=== PATIENT | male | born 2000 | race Caucasian/White ===

== ENCOUNTER 2019-04-29 19:17 | Inpatient (IN) | payer OTHER ==
--- NOTE | 2019-04-29 19:36 | PDOC ---
Rapid Medical Evaluation Chief Complaint: Abscess Boil Time Seen by Provider: 04/29/19 19:30 Medical Evaluation: Allergies Allergy/AdvReac Type Severity Reaction Status Date / Time No Known Allergies Allergy Verified 11/19/12 11:00 04/29/19 19:31 I have performed a brief in-person evaluation of this patient. The patient presents with a chief complaint of: left AMA from [facility] after admission for kidney abscess , received Zosyn and Vanco IV there x 2days, + pain to right back. Pertinent physical exam findings: pale, with flank I have ordered the following: labs The patient will proceed to the ED for further evaluation. 04/29/19 19:37 Discharge Disposition - Diagnosis Flank pain, acute - Discharge Dispostion Condition at time of disposition: Stable - Referrals - Patient Instructions - Post Discharge Activity
--- NOTE | 2019-04-29 19:50 | PDOC ---
History of Present Illness - General Chief Complaint: Abscess Boil Stated Complaint: ABCESS IN L KIDNEY Time Seen by Provider: 04/29/19 19:30 Past History - Past Medical History Allergies/Adverse Reactions: Allergies Allergy/AdvReac Type Severity Reaction Status Date / Time No Known Allergies Allergy Verified 04/29/19 21:26 Home Medications: Ambulatory Orders NK [No Known Home Medication] 04/29/19 - Immunization History Immunization Up to Date: Yes - Psycho Social/Smoking Cessation Hx Smoking Status: No Smoking History: Never smoked Number of Cigarettes Smoked Daily: 0 *Physical Exam - Vital Signs Last Vital Signs Temp Pulse Resp BP Pulse Ox 98.7 F 102 H 19 98/61 98 04/29/19 19:31 04/29/19 19:31 04/29/19 19:31 04/29/19 19:31 04/29/19 19:31 ED Treatment Course - LABORATORY CBC & Chemistry Diagram: 05/02/19 06:25 05/02/19 06:25 Medical Decision Making - Medical Decision Making HPI: 19yo M witn no significant PMH presenting with left kidney abscess. Patient states he left AMA from another hospital and came to this ED. He had LLQ "sharp " abdominal pain and L. flank pain x 1 week. Three days ago, he was febrile to 101.7 and had one episode of NBNB vomiting. He presented to [facility] ER and CT was performed which showed a 5.3cm abscess. Patient was admitted and given Vancomycin BID and Zosyn q6h. Patient left AMA because "they weren't doing anything except for an IV." Patient states he last received two pills of tylenol about 1.5 hours ago and had a total of 4 pills today. Had a normal formed brown stool today. Has been on a normal diet with mildly lessened appetite. Denies urinary symptoms. Reports 9/10 pain currently that is intermittent with no known relieving factors. Coughing makes his pain worse. Does not follow with a urologist. No history of UTIs. No IV drug use. Occasional marijuana smoker. Reports chills. PCP: none ROS: Constitutional: +fever, +chills HEENT: no throat pain, no dysphagia Cardiovascular: no leg swelling, no palpitations Respiratory: no cyaoosis, no shortness of breath Gastrointestinal: +abdominal pain, +vomiting Genitourinary: no dysuria, no hematuria Musculoskeletal: no myalgia, no arthralgia Skin: no rash, no itching Neurologic: no headache, no weakness PE: General: Awake, alert, and fully oriented, in no acute distress, pleasant Head: No signs of trauma Eyes: EOMI, sclera anicteric ENT: Moist mucus membranes Neck: Normal ROM, supple Lungs: Lungs clear, Normal breath sounds Cardio: Regular rhythm, S1 and S2 present Abdomen: Tender to palpation in LLQ. Soft, nondistended. No guarding, no rebound , no masses. +L. CVA tenderness. No R. CVA tenderness Extremities: Normal range of motion, Distal pulses present SKIN: Warm, Dry, normal turgor Neurologic: Cranial nerves II through XII grossly intact. Normal speech ED Course/MDM: DDX including but not limited to kidney abscess, UTI, pyelonephritis, diverticulitis Labs, EKG, CXR CTAP Morphine Fluids Likely admission for IV antibiotics. Per Up-to-date: "for renal abscesses <5 cm in diameter, antimicrobial therapy alone (without drainage) is appropriate initial management" 04/29/19 19:49 Patient resting comfortable in stretcher; feels warm. Rectal temp is 100.4 Ofirmev ordered We will also obtain lactate and VBG per sepsis protocol EKT: rate 84, Qtc 432, NSR, incomplete RBBB CXR without acute pathology, my impression 04/29/19 21:30 CBC WBC 18.7 K/mm3 (4.0-10.0) H 04/29/19 20:40 RBC 4.14 M/mm3 (4.00-5.60) 04/29/19 20:40 Hgb 12.2 GM/dL (11.7-16.9) 04/29/19 20:40 Hct 36.2 % (35.4-49) 04/29/19 20:40 MCV 87.4 fl (80-96) 04/29/19 20:40 MCH 29.4 pg (25.7-33.7) 04/29/19 20:40 MCHC 33.7 g/dl (32.0-35.9) 04/29/19 20:40 RDW 13.8 % (11.9-15.9) 04/29/19 20:40 Plt Count 553 K/MM3 (134-434) H 04/29/19 20:40 MPV 8.3 fl (7.5-11.1) 04/29/19 20:40 Absolute Neuts (auto) 15.7 K/mm3 (1.5-8.0) H 04/29/19 20:40 Neutrophils % 84.1 % (42.8-82.8) H 04/29/19 20:40 Lymphocytes % 7.5 % (8-40) L 04/29/19 20:40 Monocytes % 8.0 % (3.8-10.2) 04/29/19 20:40 Eosinophils % 0.2 % (0-4.5) 04/29/19 20:40 Basophils % 0.2 % (0-2.0) 04/29/19 20:40 Nucleated RBC % 0 % (0-0) 04/29/19 20:40 ESR 86 mm/hr (0-10) H 04/29/19 20:40 Leukocytosis, WBC=18.7 ESR elevated CMP Sodium 134 mmol/L (136-145) L 04/29/19 20:40 Potassium 4.1 mmol/L (3.5-5.1) 04/29/19 20:40 Chloride 98 mmol/L (98-107) 04/29/19 20:40 Carbon Dioxide 26 mmol/L (21-32) 04/29/19 20:40 Anion Gap 9 MMOL/L (8-16) 04/29/19 20:40 BUN 7.3 mg/dL (7-18) 04/29/19 20:40 Creatinine 0.8 mg/dL (0.55-1.3) 04/29/19 20:40 Est GFR (CKD-EPI)AfAm 148.00 04/29/19 20:40 Est GFR (CKD-EPI)NonAf 127.70 04/29/19 20:40 Random Glucose 91 mg/dL (74-106) 04/29/19 20:40 Calcium 8.6 mg/dL (8.5-10.1) 04/29/19 20:40 Total Bilirubin 1.0 mg/dL (0.2-1) 04/29/19 20:40 AST 17 U/L (15-37) 04/29/19 20:40 ALT 10 U/L (13-61) L 04/29/19 20:40 Alkaline Phosphatase 151 U/L (45-117) H 04/29/19 20:40 C-Reactive Protein 19.5 MG/DL (0.00-0.3) H 04/29/19 20:40 Total Protein 7.7 g/dl (6.4-8.2) 04/29/19 20:40 Albumin 3.0 g/dl (3.4-5.0) L 04/29/19 20:40 Electrolytes unremarkable Cr normal No transaminitis CRP elevated Pending CT report 04/29/19 22:41 Dr. Andrade from Imaging production assistant reporting critical finding on CTAP: "6x6.5x7" can't see left adrenal gland, compressing psoas muscle "solid mixed cyst vs tumor, not a big drainable collection, would be easy to biopsy" Plan for admission 04/29/19 23:[address] Vasquez who accepted patient for admission under Dr. Wolfe 04/30/19 00:41 Discharge - Discharge Information Problems reviewed: Yes Clinical Impression/Diagnosis: Flank pain, acute, Left renal mass Sepsis Qualifiers: Sepsis type: sepsis due to unspecified organism Sepsis acute organ dysfunction status: unspecified Qualified Code(s): A41.9 - Sepsis, unspecified organism Condition: Guarded - Admission Yes - Follow up/Referral - Patient Discharge Instructions - Post Discharge Activity
--- NOTE | 2019-04-29 19:58 | PDOC ---
Attending Attestation - Resident Resident Name: Nilton Dobsonth - ED Attending Attestation I have performed the following: I have examined & evaluated the patient, The case was reviewed & discussed with the resident, I agree w/resident's findings & plan, Exceptions are as noted - HPI HPI: 04/29/19 20:26 19y F hx of recent dx L kidney abscess, had been having L flankl pain x 1 week, went to [facility] 3 days ago and was dx a L kidney abscess and was started on vancomycin and zosyn, however the ptl left AMA and came here today. Pt dneis any dysuria, current fever/chills, cp, n/v, freqeunt hx of utis. Denies IVDU. Pt still endorses intermittent abd pain. GENERAL: The patient is awake, alert, and fully oriented, Nontoxic - in no acute distress. ABDOMEN: Soft, nontender, No guarding, no rebound. No CVA tenderness EXTREMITIES: Normal range of motion, no edema. NEUROLOGICAL: No facial assymetry, Normal speech, moving all 4 extremities apontaneously and symmetrically PSYCH: Normal mood, normal affect. SKIN: Warm, Dry, normal turgor, a&p - suspect partially treated kdiney abscess will obtain repeat imaging, lab work will reassess, if abscess still present anticipate admisison - Physicial Exam PE: 04/29/19 21:07 see above - Medical Decision Making 04/29/19 22:35 labs reviweed noted for leukocytosis awaiting CT anticipate admission if +abscess 04/30/19 00:21 ct reviewed +large cystic/complex mass in L kidney will admit for further mangement will give abx here Heart Score/ECG Review - ECG Impressions Comment:: 04/29/19 21:21 Twelve-lead EKG was performed and reviewed by me. There is normal sinus rhythm with a normal rate. rate of 84 incomplete rbbb
[2019-04-29] MEDS ORDERED: morphine CARPU-JECT 4 MG/1 ML DISP.SYRIN IVPUSH ONE (20:14)
[2019-04-29] MEDS ORDERED: SODIUM CHLORIDE 1,000 ML IV STA (20:14)
[2019-04-29] MEDS ORDERED: morphine SULFATE 4 MG/ML VIAL ONE (20:20)
[2019-04-29 21:20] LABS: URINE APPEARANCE CLOUDY; URINE BILIRUBIN 1+ (NEGATIVE); URINE COLOR DK YELLOW; URINE GLUCOSE (UA) NEGATIVE (NEGATIVE); URINE KETONE TRACE (NEGATIVE); URINE LEUK ESTERASE NEGATIVE (NEGATIVE); URINE NITRITE NEGATIVE (NEGATIVE); URINE PROTEIN TRACE (NEGATIVE)
[2019-04-29] MEDS ORDERED: ACETAMINOPHEN 1000 MG/100 ML VIAL (NON FORMULARY) IVPB ONE (21:24)
[2019-04-29 21:35] LABS: BASO % 0.2 % (0-2.0); EOS % 0.2 % (0-4.5); HEMATOCRIT 36.2 % (35.4-49); HEMOGLOBIN 12.2 GM/dL (11.7-16.9); LYMPH % 7.5 % (8-40); MCH 29.4 pg (25.7-33.7); MCHC 33.7 g/dl (32.0-35.9); MEAN CELL VOLUME 87.4 fl (80-96); MEAN PLT VOLUME 8.3 fl (7.5-11.1); NEUT % 84.1 % (42.8-82.8); PLATELET COUNT 553 K/MM3 (134-434); RBC 4.14 M/mm3 (4.00-5.60); RDW 13.8 % (11.9-15.9); WHITE BLOOD COUNT 18.7 K/mm3 (4.0-10.0)
[2019-04-29] MEDS ORDERED: ACETAMINOPHEN INJECTION 100 ML IVPB ONE (21:46)
[2019-04-29 21:55] LABS: BLOOD UREA NITROGEN 7.3 mg/dL (7-18); CALCIUM 8.6 mg/dL (8.5-10.1); CREATININE 0.8 mg/dL (0.55-1.3); POTASSIUM 4.1 mmol/L (3.5-5.1); TOT PROT 7.7 g/dl (6.4-8.2)
[2019-04-29 22:14] LABS: VENOUS PH 7.42 (7.31-7.41)
[2019-04-29 22:15] LABS: VENOUS PO2 < 49 mmHg (28-48)
[2019-04-29] MEDS ORDERED: VANCOMYCIN 1,000 MG in DEXTROSE 5%-WATER - 250 ML IVPB ONE (23:51)
[2019-04-29] MEDS ORDERED: PIPERACILLIN/TAZOB 4.5 GM 4.5 GM in DEXTROSE 5%-WATER 100 ML IVPB ONE (23:51)
[2019-04-30] MEDS ORDERED: VANCOMYCIN 1 GRAM (PRE-DOCKED) 1,000 MG/250 ML BAG IVPB ONE (00:09)
[2019-04-30] MEDS ORDERED: PIPERACILLIN/TAZOB 4.5 GM 4.5 GM/100 ML BAG IVPB ONE (00:09)
--- NOTE | 2019-04-30 00:41 | PN ---
Teaching Attending Note Name of Resident: Ruba Newman ATTENDING PHYSICIAN STATEMENT I saw and evaluated the patient. I reviewed the resident's note and discussed the case with the resident. I agree with the resident's findings and plan as documented. SUBJECTIVE: 19y M c/o Left flank pain x 1 week, went to [facility] 3 days ago and was diagnosed a L kidney abscess and was started on vancomycin and zosyn, however the pt left AMA and came to [facility]. C/o fevers, chills, nausea. OBJECTIVE: Last Vital Signs Temp Pulse Resp BP Pulse Ox 100.4 F H 102 H 19 98/61 98 04/29/19 21:24 04/29/19 19:31 04/29/19 19:31 04/29/19 19:31 04/29/19 19:31 gen- appears uncomfortable heent - clear sclera cv-s1+s2+rrr back -left flank tenderness ext -no pedal edema Abnormal Lab Results 04/29/19 04/29/19 04/29/19 20:20 20:40 20:40 WBC 18.7 H Plt Count 553 H Absolute Neuts (auto) 15.7 H Neutrophils % 84.1 H Lymphocytes % 7.5 L ESR VBG pH POC VBG pO2 Sodium 134 L ALT 10 L Alkaline Phosphatase 151 H C-Reactive Protein 19.5 H Albumin 3.0 L Urine Ketones Trace H Urine Bilirubin 1+ H 04/29/19 04/29/19 20:40 21:50 WBC Plt Count Absolute Neuts (auto) Neutrophils % Lymphocytes % ESR 86 H VBG pH 7.42 H POC VBG pO2 < 49 H Sodium ALT Alkaline Phosphatase C-Reactive Protein Albumin Urine Ketones Urine Bilirubin imaging reviewed Dr. Andrade from Imaging collection teller reported critical finding on CTAP to ER staff - "6x6.5x7" can't see left adrenal gland, compressing psoas muscle "solid mixed cyst vs tumor, not a big drainable collection, would be easy to biopsy ASSESSMENT AND PLAN: Sepsis secondary to left kidney abscess in young man otherwise lacking risk factors. Differential diagnosis also includes renal cell carcinoma. High fevers , leukocytosis, elevated esr. -med/surg -vancomycin/zosyn -f/u official abd/pelvis ct report -discuss with IR with this is likely an abscess and if it is drainable -renal consult -iv fluid hydration -npo for possible procedure -dvt ppx
--- NOTE | 2019-04-30 01:11 | HP ---
CHIEF COMPLAINT: PCP: none HISTORY OF PRESENT ILLNESS: 19 y/o/m with no PMHx here for abdominal pain. He stated to have the pain about a week and a half ago which gradually worsened. Two days ago he decided to go to [facility] due to the pain. However, he signed out AMA because he wanted to be seen by an ID doctor and had not been seen by one. He came directly to [facility]. The pain is in the LLQ, was 10/10 at its worse, described as sharp, intermittently radiates to his back. The pain is currently a 6/10. He had a 101.7F when he was admitted at [facility] but did not record a fever at home. He vomited once before going to [facility], no blood no bile. He has normal bowel movements, last bowel movement this morning. He denies any changes in his diet. He feels like he has been sweating more than usual. His pain is improved with tylenol. He denies chest pain, shortness of breath, headaches, changes in vision, hematochezia, dysuria, sore throat. He denies any history of STIs. He is currently sexually active with only one partner. ER course was notable for: (1) Dr. 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 denies weakness, loss of appetite HEENT: denies sore throat, vision changes, nasal congestion Cardio: denies chest pain, lightheadedness, palpitations Resp: denies SOB, wheezing GI: LLQ abd pain, vomiting. denies diarrhea, constipation : denies dysuria MSK: denies back pain, joint pain, neck pain SKIN: denies rashes Neuro: denies loss of consciousness, numbness, tingling, weakness, headache Psych: denies anxiety Endocrine: denies intolerance of hot or cold temperatures PHYSICAL EXAMINATION Vital Signs - 24 hr 04/29/19 04/29/19 19:31 21:24 Temperature 98.7 F 100.4 F H Pulse Rate 102 H Respiratory 19 Rate Blood Pressure 98/61 O2 Sat by Pulse 98 Oximetry (%) GENERAL: Awake, alert, and fully oriented, in no acute distress. HEAD: NC/AT EYES: PERRL, EOMI, conjunctiva normal EARS, NOSE, THROAT: nares patent, oropharynx clear without exudates. Moist mucous membranes. NECK: Normal range of motion, supple without lymphadenopathy, JVD, or masses. LUNGS: Breath sounds equal, clear to auscultation bilaterally. No wheezes, and no crackles. No accessory muscle use. HEART: Regular rate and rhythm, normal S1 and S2 without murmur, rub or gallop. ABDOMEN: moderate tenderness to palpation over LLQ. non distended, soft, normoactive bowel sounds, no guarding, no rebound, no masses. MUSCULOSKELETAL: No CVA tenderness, no vertebral tenderness to palpation UPPER EXTREMITIES: 2+ pulses, warm, well-perfused. No cyanosis. No clubbing. No peripheral edema. LOWER EXTREMITIES: 2+ pulses, warm, well-perfused. No calf tenderness. No peripheral edema. NEUROLOGICAL: Normal speech. 5/5 strength upper and lower extremities PSYCHIATRIC: Cooperative. Good eye contact. Appropriate mood and affect. SKIN: Warm, normal turgor, no rashes or lesions noted, normal capillary refill. Laboratory Results - last 24 hr 04/29/19 04/29/19 04/29/19 20:20 20:40 20:40 WBC 18.7 H RBC 4.14 Hgb 12.2 Hct 36.2 MCV 87.4 MCH 29.4 MCHC 33.7 RDW 13.8 Plt Count 553 H MPV 8.3 Absolute Neuts (auto) 15.7 H Neutrophils % 84.1 H Lymphocytes % 7.5 L Monocytes % 8.0 Eosinophils % 0.2 Basophils % 0.2 Nucleated RBC % 0 ESR VBG pH POC VBG pCO2 POC VBG pO2 VBG HCO3 VBG O2 Sat (Juany) VBG Base Excess Sodium 134 L Potassium 4.1 Chloride 98 Carbon Dioxide 26 Anion Gap 9 BUN 7.3 Creatinine 0.8 Est GFR (CKD-EPI)AfAm 148.00 Est GFR (CKD-EPI)NonAf 127.70 Random Glucose 91 Lactic Acid Calcium 8.6 Total Bilirubin 1.0 AST 17 ALT 10 L Alkaline Phosphatase 151 H C-Reactive Protein 19.5 H Total Protein 7.7 Albumin 3.0 L Urine Color Dk yellow Urine Appearance Cloudy Urine pH 8.0 Ur Specific [place] 1.027 Urine Protein Trace Urine Glucose (UA) Negative Urine Ketones Trace H Urine Blood Negative Urine Nitrite Negative Urine Bilirubin 1+ H Urine Urobilinogen 2.0 Ur Leukocyte Esterase Negative 04/29/19 04/29/19 04/29/19 20:40 21:50 21:50 WBC RBC Hgb Hct MCV MCH MCHC RDW Plt Count MPV Absolute Neuts (auto) Neutrophils % Lymphocytes % Monocytes % Eosinophils % Basophils % Nucleated RBC % ESR 86 H VBG pH 7.42 H POC VBG pCO2 41.0 POC VBG pO2 < 49 H VBG HCO3 25.8 VBG O2 Sat (Juany) 79.0 VBG Base Excess 1.6 Sodium Potassium Chloride Carbon Dioxide Anion Gap BUN Creatinine Est GFR (CKD-EPI)AfAm Est GFR (CKD-EPI)NonAf Random Glucose Lactic Acid 0.8 Calcium Total Bilirubin AST ALT Alkaline Phosphatase C-Reactive Protein Total Protein Albumin Urine Color Urine Appearance Urine pH Ur Specific [place] Urine Protein Urine Glucose (UA) Urine Ketones Urine Blood Urine Nitrite Urine Bilirubin Urine Urobilinogen Ur Leukocyte Esterase Imaging: CT Abd&pelvis w/contrast: There is a 6x6.5x6.9cm complex infiltrative heterogeneous hypovascular mass, possibly multiloculated, in the superior pole of the left kidney. Renal cell carcinoma can have this appearance. There is no clear well-defined peripherally enhancing wall with central fluid cavity to suggest an abscess on the current examination. There is no clear evidence of pyelonephritis in the remaining portions of the left kidney. The left adrenal gland is not clearly identified due to the medial extension of the mass. Right kidney appears normal. CXR - negative for acute pathology ASSESSMENT/PLAN: 19 y/o/m with no PMHx here for abdominal pain, patient told he has a renal abscess at [facility] but signed out AMA and came here. 1)Sepsis - likely secondary to renal abscess but questionable for RCC -Patient with WBC of 18.7, temperature of 100.4 rectal -CT without definitive evidence of abscess, suggestive of possible RCC -Vanc and Zosyn given in ED. Will continue -ID consult, Dr. Finley -Nephro consult, Dr. Marcial -IVF -ESR, CRP elevated -Consider IR consult -Will hold anticoagulation and keep patient NPO in anticipation of possible IR procedure 2)LLQ abdominal pain - patient with worsening LLQ pain for the last week and half -Admitted at [facility] and told he has a renal abscess, given IV abx there, signed out AMA as he was not happy with care -CT abd&pelvis with results as above -pain control with ofirmev and morphine 3)FEN NS @100mls/hr 4)Prophylaxis -Holding anticoagulation in anticipation of possible IR procedure 5)Disposition -admitted to Med/Surg Visit type - Emergency Visit Emergency Visit: Yes ED Registration Date: 04/29/19 Care time: The patient presented to the Emergency Department on the above date and was hospitalized for further evaluation of their emergent condition. - New Patient This patient is new to me today: Yes Date on this admission: 04/30/19 - Critical Care Critical Care patient: No ATTENDING PHYSICIAN STATEMENT I saw and evaluated the patient. I reviewed the resident's note and discussed the case with the resident. I agree with the resident's findings and plan as documented. SUBJECTIVE: OBJECTIVE: ASSESSMENT AND PLAN:
[2019-04-30] MEDS ORDERED: MORPHINE SULFATE 2 MG/ML VIAL IVPUSH ONE ×2 (01:28→08:45)
[2019-04-30] MEDS ORDERED: MORPHINE SULFATE 2 MG/ML VIAL ONE ×2 (01:39→08:42)
[2019-04-30] MEDS: SODIUM CHLORIDE 1,000 ML IV SCH ×2 (01:55→09:16)
[2019-04-30] MEDS: ACETAMINOPHEN 1000 MG/100 ML VIAL (NON FORMULARY) IVPB PRN ×3 (04:02→20:36)
[2019-04-30 07:03] LABS: HEMATOCRIT 33.3 % (35.4-49); HEMOGLOBIN 11.4 GM/dL (11.7-16.9); MCH 29.9 pg (25.7-33.7); MCHC 34.3 g/dl (32.0-35.9); MEAN CELL VOLUME 87.3 fl (80-96); MEAN PLT VOLUME 7.7 fl (7.5-11.1); PLATELET COUNT 524 K/MM3 (134-434); RBC 3.82 M/mm3 (4.00-5.60); RDW 13.8 % (11.9-15.9); WHITE BLOOD COUNT 17.7 K/mm3 (4.0-10.0)
[2019-04-30 07:40] LABS: ALBUMIN 2.6 g/dl (3.4-5.0); BILIRUBIN,TOTAL 0.9 mg/dL (0.2-1); BLOOD UREA NITROGEN 5.3 mg/dL (7-18); CALCIUM 8.7 mg/dL (8.5-10.1); CREATININE 0.8 mg/dL (0.55-1.3); POTASSIUM 4.1 mmol/L (3.5-5.1); TOT PROT 7.2 g/dl (6.4-8.2)
[2019-04-30 07:53] LABS: INR 1.64 (0.83-1.09); PROTHROMBIN TIME (PATIENT) 19.4 SEC (9.7-13.0)
[2019-04-30 07:54] LABS: ACTIVATED PTT 32.2 SECONDS (25.2-36.5)
[2019-04-30] MEDS ORDERED: PIPERACILLIN/TAZOBACTAM 3.375 GM VIAL IVPB ONE (09:05)
[2019-04-30] MEDS ORDERED: DEXTROSE 5%-WATER - 50 ML IVPB ONE (09:05)
[2019-04-30] MEDS ORDERED: PIPERACILLIN/TAZOB 3.375 GM 3.375 GM in DEXTROSE 5%-WATER - 50 ML IVPB SCH (10:00)
--- NOTE | 2019-04-30 11:51 | PN ---
Progress Note (short form) - Note Progress Note: ID consult dictated imp/reccd 19 yo other pace healthy young man with one week of left flank pain fever to 100.7 one day no history of uti nor prior antibiotics 10 pound weight loss admitted to [facility] with these complaints-started on antibiotics there told he had a renal abscess and started on antibiotics he left AMA and come to [facility] no history of stds no IVDU possible renal abscess versus malignancy-etiology of abscess unclear- ua negative, blood cultures pending continue sujata/geovany would get records from [facility] urology consult regarding drainage/biopsy offer HIV testing echo I called Micro at [facility] with patient's permission- blood cultures negative to date Problem List - Problems (1) Left renal mass Code(s): N28.89 - OTHER SPECIFIED DISORDERS OF KIDNEY AND URETER
--- NOTE | 2019-04-30 11:54 | PN ---
Teaching Attending Note Name of Resident: Mathew Barry ATTENDING PHYSICIAN STATEMENT I saw and evaluated the patient. I reviewed the resident's note and discussed the case with the resident. I agree with the resident's findings and plan as documented. SUBJECTIVE: reports recent weight loss ( 10 lb in past 2 weeks, ) has fever in past 2 days. has L abd pain, no N/V. no diarrhea. smoked fr a year and quuit 3 weeks ago. denies any h/o cancer in family. all his brothers are tall like him. Mom 5' 6", father 5'8". does not know of a murmur before. OBJECTIVE: NAD, awake, alert, and pleasant dry MM CV: RRR, diastolic murmur in LLSB , no radiation . Abd: soft, TTP in LUQ, and LLQ, no rebound tenderness or guarding. No CVA tenderness Lungs: CTAB Ext: no edema or erythema on upper or lower extremities ASSESSMENT AND PLAN: 19 y/o man with no significant PMH who was diagnosed with L renal infection / abscess in [facility] 2 days ago, who presented to [facility] after leaving [place] . 1- L renal abscess VS infected cyst. can't r/o a mass. has sepsis. was treated with Abx in OSH. - will consult urology for input before deciding on any IR procedure. - will consent for HIV - cont zosyn for now, not sure about need for vanco. ID consult pending - blood and urine cx sent. - will obtains culture results form [facility] - follow CBC. follow CRp , ESR in a couple days - diastolic murmur on exam. will get echo 2- Thrombocytosis : reactive . will follow 3- DVT: SCDs for now , pending decision on any procedure
--- NOTE | 2019-04-30 12:05 | EKG ---
Test Reason : Blood Pressure : / mmHG Vent. Rate : 095 BPM Atrial Rate : 095 BPM P-R Int : 120 ms QRS Dur : 112 ms QT Int : 342 ms P-R-T Axes : 059 085 057 degrees QTc Int : 429 ms NORMAL SINUS RHYTHM INCOMPLETE RIGHT BUNDLE BRANCH BLOCK NO PREVIOUS ECGS AVAILABLE Confirmed by LORA CABALLERO MD ([id number]) on 04/30/2019 12:04:58 PM Referred By: GURINDER MARTINES DR Confirmed By:LORA CABALLERO MD
--- NOTE | 2019-04-30 12:14 | EKG ---
Test Reason : Blood Pressure : / mmHG Vent. Rate : 084 BPM Atrial Rate : 084 BPM P-R Int : 120 ms QRS Dur : 102 ms QT Int : 366 ms P-R-T Axes : 052 083 056 degrees QTc Int : 432 ms NORMAL SINUS RHYTHM INCOMPLETE RIGHT BUNDLE BRANCH BLOCK MINIMAL VOLTAGE CRITERIA FOR LVH, MAY BE NORMAL VARIANT NO PREVIOUS ECGS AVAILABLE Confirmed by LORA CABALLERO MD ([id number]) on 04/30/2019 12:14:21 PM Referred By: Confirmed By:LORA CABALLERO MD
[2019-04-30 12:38] VITALS: BMI 16.8
[2019-04-30] MEDS ORDERED: VANCOMYCIN 1 GM in D5W (PRE-DOCKED) 1,000 MG/250 ML IVPB SCH (13:00)
--- NOTE | 2019-04-30 13:41 | CONSULT ---
Consult Consult Specialty:: Nephrology Reason for Consultation:: renal abscess vs mass - History of Present Illness Chief Complaint: left flank pain History of Present Illness: Pt is a 19 year old male with no significant pmhx who presents to the ER with left flank pain. He was in [facility] and was diagnosed with a left kidney abscess. He was on antibiotics but signed out of there and came here. He denies fevers or chills. He denies hematuria or dysuria. He denies nsaid use. He feels pain is improved today. He marcelo history of UTI. He is sexually active with one partner. He denies weight loss. - History Source History Provided By: Patient, Medical Record - Past Medical History Renal/: Yes: Other (renal abscess) - Alcohol/Substance Use Hx Alcohol Use: No - Smoking History Smoking history: Former smoker Have you smoked in the past 12 months: Yes Aproximately how many cigarettes per day: 0 If you are a former smoker, when did you quit?: 3 weeks ago Home Medications - Allergies Allergies/Adverse Reactions: Allergies Allergy/AdvReac Type Severity Reaction Status Date / Time No Known Allergies Allergy Verified 04/29/19 21:26 - Home Medications Home Medications: Ambulatory Orders NK [No Known Home Medication] 04/29/19 Family Medical History Family History: Denies Review of Systems - Review of Systems Constitutional: reports: Malaise Eyes: reports: No Symptoms HENT: reports: No Symptoms Neck: reports: No Symptoms Cardiovascular: reports: No Symptoms Respiratory: reports: No Symptoms Gastrointestinal: reports: No Symptoms Genitourinary: reports: Flank Pain Musculoskeletal: reports: No Symptoms Integumentary: reports: No Symptoms Neurological: reports: No Symptoms Endocrine: reports: No Symptoms Hematology/Lymphatic: reports: No Symptoms Psychiatric: reports: No Symptoms Physical Exam Vital Signs: Vital Signs Temperature 98.4 F 04/30/19 09:26 Pulse Rate 88 04/30/19 09:26 Respiratory Rate 20 04/30/19 09:26 Blood Pressure 130/65 04/30/19 09:26 O2 Sat by Pulse Oximetry (%) 100 04/30/19 09:00 Constitutional: Yes: Calm Eyes: Yes: Conjunctiva Clear HENT: Yes: Atraumatic Neck: Yes: Supple Cardiovascular: Yes: Murmur, S1, S2 Respiratory: Yes: CTA Bilaterally Gastrointestinal: Yes: Soft Renal/: Yes: WNL. No: CVA Tenderness - Left, CVA Tenderness - Right Musculoskeletal: Yes: WNL Integumentary: Yes: Tattoos Neurological: Yes: Oriented Psychiatric: Yes: Oriented Labs: CBC, BMP 04/30/19 06:45 04/30/19 06:45 Laboratory Tests 04/29/19 04/29/19 04/29/19 20:20 20:40 20:40 WBC 18.7 H Sodium 134 L Creatinine 0.8 Urine Protein Trace Urine Blood Negative Ur Leukocyte Esterase Negative 04/30/19 04/30/19 06:45 06:45 WBC 17.7 H Sodium 139 Creatinine 0.8 Urine Protein Urine Blood Ur Leukocyte Esterase Imaging - Results Cat Scan: Report Reviewed Problem List - Problems (1) Murmur Code(s): R01.1 - CARDIAC MURMUR, UNSPECIFIED (2) Flank pain, acute Code(s): R10.9 - UNSPECIFIED ABDOMINAL PAIN (3) Left renal mass Code(s): N28.89 - OTHER SPECIFIED DISORDERS OF KIDNEY AND URETER Assessment/Plan Current Medications Generic Name Dose Route Start Last Admin Trade Name Freq PRN Reason Stop Dose Admin Acetaminophen 1,000 mg 04/30/19 03:08 04/30/19 12:36 Ofirmev Injection - IVPB 1,000 mg Q6H PRN Administration FEVER Sodium Chloride 1,000 mls @ 100 mls/hr 04/30/19 01:15 04/30/19 09:16 Normal Saline - IV 100 mls/hr ASDIR TYSON Administration Piperacillin Sod/Tazobactam 100 mls @ 200 mls/hr 04/30/19 15:00 Sod 4.5 gm/ Dextrose IVPB Q6H-IV [facility] Protocol Oxycodone HCl 5 mg 04/30/19 13:22 Roxicodone - PO Q4H PRN PAIN LEVEL 4 - 6 Oxycodone HCl 10 mg 04/30/19 13:22 Roxicodone - PO Q4H PRN PAIN LEVEL 6-10 Vancomycin HCl 1,000 mg 04/30/19 13:00 Vancomycin (Pre-Docked) IVPB BID@0100,1300 [facility] Protocol Impression 1. renal abscess vs mass 2. recent uti 3. heart murmur Plan - check renal ultrasound - urology eval - cont fluids for now - follow cultures - get records from [facility] - check echo for murmur - check hiv test
--- NOTE | 2019-04-30 15:24 | PN ---
Physical Exam: SUBJECTIVE: Patient seen and examined at the bedside, patient complaining of some abdominal pain but otherwise appears comfortable in bed. OBJECTIVE: Vital Signs Period Temp Pulse Resp BP Sys/Solano Pulse Ox Last 24 Hr 98.4 F-100.4 F 81-102 16-28 98-130/54-75 98-100 GENERAL: The patient is awake, alert, and fully oriented, in no acute distress, HEAD: Normal with no signs of trauma. EYES: PERRL, extraocular movements intact, sclera anicteric, conjunctiva clear. No ptosis. ENT: Ears normal, nares patent, oropharynx clear without exudates, moist mucous membranes. NECK: Trachea midline, full range of motion, supple. LUNGS: Breath sounds equal, clear to auscultation bilaterally, no wheezes, no crackles, no accessory muscle use. HEART: Regular rate and rhythm, S1, S2, diastolic murmur heard at LLSB. ABDOMEN: Soft, tender to palpation on left side of abdomen, nondistended, normoactive bowel sounds, no guarding, no rebound, no CVA tenderness EXTREMITIES: 2+ pulses, warm, well-perfused, no edema. NEUROLOGICAL: Cranial nerves II through XII grossly intact. Normal speech, gait not observed. PSYCH: Normal mood, normal affect. SKIN: Warm, dry, normal turgor, no rashes or lesions noted Laboratory Results - last 24 hr 04/29/19 04/29/19 04/29/19 20:20 20:40 20:40 WBC 18.7 H RBC 4.14 Hgb 12.2 Hct 36.2 MCV 87.4 MCH 29.4 MCHC 33.7 RDW 13.8 Plt Count 553 H MPV 8.3 Absolute Neuts (auto) 15.7 H Neutrophils % 84.1 H Lymphocytes % 7.5 L Monocytes % 8.0 Eosinophils % 0.2 Basophils % 0.2 Nucleated RBC % 0 ESR PT with INR INR PTT (Actin FS) VBG pH POC VBG pCO2 POC VBG pO2 VBG HCO3 VBG O2 Sat (Juany) VBG Base Excess Sodium 134 L Potassium 4.1 Chloride 98 Carbon Dioxide 26 Anion Gap 9 BUN 7.3 Creatinine 0.8 Est GFR (CKD-EPI)AfAm 148.00 Est GFR (CKD-EPI)NonAf 127.70 Random Glucose 91 Lactic Acid Calcium 8.6 Total Bilirubin 1.0 AST 17 ALT 10 L Alkaline Phosphatase 151 H C-Reactive Protein 19.5 H Total Protein 7.7 Albumin 3.0 L Urine Color Dk yellow Urine Appearance Cloudy Urine pH 8.0 Ur Specific [place] 1.027 Urine Protein Trace Urine Glucose (UA) Negative Urine Ketones Trace H Urine Blood Negative Urine Nitrite Negative Urine Bilirubin 1+ H Urine Urobilinogen 2.0 Ur Leukocyte Esterase Negative Blood Type Antibody Screen 04/29/19 04/29/19 04/29/19 20:40 21:50 21:50 WBC RBC Hgb Hct MCV MCH MCHC RDW Plt Count MPV Absolute Neuts (auto) Neutrophils % Lymphocytes % Monocytes % Eosinophils % Basophils % Nucleated RBC % ESR 86 H PT with INR INR PTT (Actin FS) VBG pH 7.42 H POC VBG pCO2 41.0 POC VBG pO2 < 49 H VBG HCO3 25.8 VBG O2 Sat (Juany) 79.0 VBG Base Excess 1.6 Sodium Potassium Chloride Carbon Dioxide Anion Gap BUN Creatinine Est GFR (CKD-EPI)AfAm Est GFR (CKD-EPI)NonAf Random Glucose Lactic Acid 0.8 Calcium Total Bilirubin AST ALT Alkaline Phosphatase C-Reactive Protein Total Protein Albumin Urine Color Urine Appearance Urine pH Ur Specific [place] Urine Protein Urine Glucose (UA) Urine Ketones Urine Blood Urine Nitrite Urine Bilirubin Urine Urobilinogen Ur Leukocyte Esterase Blood Type Antibody Screen 04/30/19 04/30/19 04/30/19 06:45 06:45 06:45 WBC 17.7 H RBC 3.82 L Hgb 11.4 L Hct 33.3 L MCV 87.3 MCH 29.9 MCHC 34.3 RDW 13.8 Plt Count 524 H MPV 7.7 Absolute Neuts (auto) Neutrophils % Lymphocytes % Monocytes % Eosinophils % Basophils % Nucleated RBC % ESR PT with INR 19.40 H INR 1.64 H PTT (Actin FS) 32.2 VBG pH POC VBG pCO2 POC VBG pO2 VBG HCO3 VBG O2 Sat (Juany) VBG Base Excess Sodium Potassium Chloride Carbon Dioxide Anion Gap BUN Creatinine Est GFR (CKD-EPI)AfAm Est GFR (CKD-EPI)NonAf Random Glucose Lactic Acid Calcium Total Bilirubin AST ALT Alkaline Phosphatase C-Reactive Protein Total Protein Albumin Urine Color Urine Appearance Urine pH Ur Specific [place] Urine Protein Urine Glucose (UA) Urine Ketones Urine Blood Urine Nitrite Urine Bilirubin Urine Urobilinogen Ur Leukocyte Esterase Blood Type O POSITIVE Antibody Screen Negative 04/30/19 04/30/19 06:45 08:39 WBC RBC Hgb Hct MCV MCH MCHC RDW Plt Count MPV Absolute Neuts (auto) Neutrophils % Lymphocytes % Monocytes % Eosinophils % Basophils % Nucleated RBC % ESR PT with INR INR PTT (Actin FS) VBG pH POC VBG pCO2 POC VBG pO2 VBG HCO3 VBG O2 Sat (Juany) VBG Base Excess Sodium 139 Potassium 4.1 Chloride 103 Carbon Dioxide 27 Anion Gap 8 BUN 5.3 L Creatinine 0.8 Est GFR (CKD-EPI)AfAm 148.00 Est GFR (CKD-EPI)NonAf 127.70 Random Glucose 90 Lactic Acid Calcium 8.7 Total Bilirubin 0.9 AST 13 L ALT 7 L Alkaline Phosphatase 140 H C-Reactive Protein Total Protein 7.2 Albumin 2.6 L Urine Color Urine Appearance Urine pH Ur Specific [place] Urine Protein Urine Glucose (UA) Urine Ketones Urine Blood Urine Nitrite Urine Bilirubin Urine Urobilinogen Ur Leukocyte Esterase Blood Type O POSITIVE Antibody Screen Active Medications Generic Name Dose Route Start Last Admin Trade Name Freq PRN Reason Stop Dose Admin Acetaminophen 1,000 mg 04/30/19 03:08 04/30/19 12:36 Ofirmev Injection - IVPB 1,000 mg Q6H PRN Administration FEVER Sodium Chloride 1,000 mls @ 100 mls/hr 04/30/19 01:15 04/30/19 09:16 Normal Saline - IV 100 mls/hr ASDIR TYSON Administration Piperacillin Sod/Tazobactam 100 mls @ 200 mls/hr 04/30/19 15:00 Sod 4.5 gm/ Dextrose IVPB Q6H-IV [facility] Protocol Oxycodone HCl 5 mg 04/30/19 13:22 Roxicodone - PO Q4H PRN PAIN LEVEL 4 - 6 Oxycodone HCl 10 mg 04/30/19 13:22 Roxicodone - PO Q4H PRN PAIN LEVEL 6-10 Vancomycin HCl 1,000 mg 04/30/19 13:00 Vancomycin (Pre-Docked) IVPB BID@0100,1300 [facility] Protocol Imaging: CT Abd&pelvis w/contrast: There is a 6x6.5x6.9cm complex infiltrative heterogeneous hypovascular mass, possibly multiloculated, in the superior pole of the left kidney. Renal cell carcinoma can have this appearance. There is no clear well-defined peripherally enhancing wall with central fluid cavity to suggest an abscess on the current examination. There is no clear evidence of pyelonephritis in the remaining portions of the left kidney. The left adrenal gland is not clearly identified due to the medial extension of the mass. Right kidney appears normal. CXR - negative for acute pathology ASSESSMENT/PLAN: 19 y/o/m with no PMHx here for abdominal pain, patient told he has a renal abscess at [facility] but signed out AMA and came here. 1- Sepsis 2/2 L renal abscess VS infected cyst, previously treated with Abx in [facility]. - f/u with urology before deciding on any IR procedure. - consent for HIV - ID following, appreciate recommendations, continue vanc and zosyn pending cultures - obtains culture results form [facility] - follow CBC. follow CRp , ESR - F/u echo, diastolic murmur heard on physical exam. -pain control with ofirmev and oxycodone 2- Thrombocytosis - reactive - trend with cbcs 3)FEN NS @100mls/hr 4)Prophylaxis -Holding anticoagulation in anticipation of possible IR procedure, SCDs 5)Disposition -admitted to Med/Surg Visit type - Emergency Visit Emergency Visit: Yes ED Registration Date: 04/29/19 Care time: The patient presented to the Emergency Department on the above date and was hospitalized for further evaluation of their emergent condition. - New Patient This patient is new to me today: Yes Date on this admission: 05/01/19 - Critical Care Critical Care patient: No - Discharge Referral Referred to [facility] No ATTENDING PHYSICIAN STATEMENT I saw and evaluated the patient. I reviewed the resident's note and discussed the case with the resident. I agree with the resident's findings and plan as documented. SUBJECTIVE: OBJECTIVE: ASSESSMENT AND PLAN:
--- NOTE | 2019-04-30 16:04 | ECHO ---
Name: OSMAN ALEX Exam:Adult Echocardiogram Study Date: 04/30/2019 03:29 PM Age: 19 yrs Reason For Study: Tobias Height: 72 in Weight: 124 lb BSA: 1.7 m2 MMode/2D Measurements & Calculations IVSd: 0.78 cm Ao root diam: 2.8 cm LVIDd: 4.3 cm LA dimension: 2.2 cm LVIDs: 3.0 cm LVPWd: 0.85 cm LVPWs: 1.1 cm EDV(Teich): 84.3 ml ESV(Teich): 33.7 ml LVOT diam: 2.2 cm Doppler Measurements & Calculations MV E max ibrahima: 96.7 cm/sec Ao V2 max: 125.1 cm/sec MV A max ibrahima: 59.2 cm/sec Ao max P.3 mmHg MV E/A: 1.6 MV dec time: 0.18 sec DREW(V,D): 2.6 cm2 LV V1 max P.0 mmHg PA V2 max: 98.4 cm/sec LV V1 max: 85.9 cm/sec PA max P.2 mmHg Med Peak E' Ibrahima: 7.2 cm/sec Med E/e': 13.4 Lat Peak E' Ibrahima: 10.8 cm/sec Lat E/e': 8.9 Procedure The study was technically difficult with many images being suboptimal in quality. Left Ventricle Left ventricular systolic function is grossly normal. Ejection Fraction = 55-60%. The transmitral spe ctral Doppler flow pattern is normal for age. Right Ventricle The right ventricle is grossly normal size. The right ventricular systolic function is grossly normal . Atria Normal left and right atrial size and function. Mitral Valve The mitral valve is normal in structure and function. There is no mitral valve stenosis. There is mil d mitral regurgitation. Tricuspid Valve The tricuspid valve is normal in structure and function. There is mild tricuspid regurgitation. Right ventricular systolic pressure is normal. Aortic Valve The aortic valve opens well. No hemodynamically significant valvular aortic stenosis. No aortic regur gitation is present. Pulmonic Valve The pulmonic valve is not well seen, but is grossly normal. There is no pulmonic valvular stenosis. T here is no pulmonic valvular regurgitation. Great Vessels The aortic root is normal size. Pericardium/Pleura There is no pericardial effusion. Interpretation Summary The study was technically difficult with many images being suboptimal in quality. Left ventricular systolic function is grossly normal. Ejection Fraction = 55-60%. There is mild mitral regurgitation. There is mild tricuspid regurgitation. There is no pericardial effusion. MD Membreno *Saroj 04/30/2019 04:03 PM
[2019-04-30] MEDS ORDERED: PIPERACILLIN/TAZOBACTAM 4.5 GM VIAL IVPB ONE ×2 (16:21→19:33)
[2019-04-30] MEDS ORDERED: DEXTROSE 5%-WATER 100 ML IVPB ONE ×2 (16:21→19:33)
[2019-04-30] MEDS: oxyCODONE HCL 5 MG TABLET PO PRN ×2 (16:27→19:38)
[2019-04-30] MEDS: PIPERACILLIN/TAZOB 4.5 GM 4.5 GM in DEXTROSE 5%-WATER 100 ML IVPB SCH ×2 (16:28→20:06)
[2019-04-30] MEDS: VANCOMYCIN 1 GM in D5W (PRE-DOCKED) 1,000 MG/250 ML IVPB SCH (16:29)
--- NOTE | 2019-04-30 16:33 | CON.GU ---
Consult Consult Specialty:: Referred by:: Medicine Reason for Consultation:: renal abscess - History of Present Illness Chief Complaint: renal abscess History of Present Illness: 19 year old male with several days of back pain and lethargy.. CT revealed a 6cm renal abscess. He denies previous medical history. IR has drained the abscess and he is feeling somewhat better. - History Source History Provided By: Patient Limitations to Obtaining History: No Limitations - Past Medical History Renal/: Yes: Other (renal abscess). No: Renal Failure, Renal Inusuff, BPH, Cancer, Hematuria, Hemodialysis, Neurogenic Bladder, Renal Calculi, UTI - Alcohol/Substance Use Hx Alcohol Use: No - Smoking History Smoking history: Former smoker Have you smoked in the past 12 months: Yes Aproximately how many cigarettes per day: 0 If you are a former smoker, when did you quit?: 3 weeks ago Home Medications - Allergies Allergies/Adverse Reactions: Allergies Allergy/AdvReac Type Severity Reaction Status Date / Time No Known Allergies Allergy Verified 04/29/19 21:26 - Home Medications Home Medications: Ambulatory Orders NK [No Known Home Medication] 04/29/19 Review of Systems - Review of Systems Constitutional: reports: Chills, Fever, Lethargy, Malaise Genitourinary: reports: Flank Pain Physical Exam- Vital Signs: Vital Signs Temperature 98.7 F 04/30/19 16:23 Pulse Rate 88 04/30/19 16:23 Respiratory Rate 20 04/30/19 16:23 Blood Pressure 113/63 04/30/19 16:23 O2 Sat by Pulse Oximetry (%) 100 04/30/19 15:05 Gastrointestinal: Yes: Soft Renal/: Yes: Other (PCN draining on left side) Labs: CBC, BMP 04/30/19 06:45 04/30/19 06:45 Imaging - Results Cat Scan: Report Reviewed Problem List - Problems (1) Renal abscess, left Assessment/Plan: abscess has been drained. repeat imaging in 48 hours. Antibiotics and follow cultures. Code(s): N15.1 - RENAL AND PERINEPHRIC ABSCESS
--- NOTE | 2019-04-30 17:31 | CONS ---
INFECTIOUS DISEASE CONSULTATION DATE OF CONSULTATION: DATE OF DICTATION: 04/30/2019 REQUESTING PHYSICIAN: The hospitalist service. This is a 19-year-old young man, otherwise healthy, with 1 week of left flank pain, fever to 100.7 on 1 day during the last week. He has no history of UTIs or prior antibiotics. He has had a 10-pound weight loss. He was admitted to [facility] with these complaints. He was started on antibiotics there and told he had a renal abscess. He left AMA and came to [facility] last night. There is no history of any STDs. No history of IV drug use. PAST MEDICAL HISTORY: He denies any hospitalizations in the past. ALLERGIES: He has no known drug allergies. MEDICATIONS: None. He was started on antibiotics at [facility]. SOCIAL HISTORY: He is a former smoker. He was smoking for about a year. He quit 2 weeks ago. Formerly smoked marijuana which he stopped as well. There is no history of IV drug use. He is sexually active with 1 partner. He lives with his girlfriend for the last 8 months. He works at a [employer]. He has never had any STDs. REVIEW OF SYSTEMS: There is no vomiting. He currently has no fevers or chills. Notable for the abdominal pain and he denies any vomiting to me. He says his appetite has been poor, and he has been unable to eat a lot. FAMILY HISTORY: Negative for any malignancy in the past. He denies any past family history. PHYSICAL EXAMINATION: General: He is a thin young man in no acute distress. Vital Signs: Temperature is 98.4, pulse of 88, blood pressure 130/65, respiratory rate is 20. His weight is 56 kg. HEENT: He is normocephalic. His eyes are anicteric. He has no conjunctival hemorrhages. He has no thrush. Neck: Supple. Lungs: Clear to auscultation. Heart: Regular rate and rhythm. Abdomen: Soft. He has no CVA tenderness. He has left-sided discomfort to palpation. Extremities: Without edema. Skin: He has no rash. DIAGNOSTIC DATA: CAT scan of his abdomen and pelvis is notable for a 5.5 x 5.2 exophytic, mass-like density in the left renal pole with stranding in the adjoining fat. He has a small amount of free fluid in the pelvis as well. Labs are notable for a white count of 17.7; it was 18.7 on admission. Hemoglobin 11.4. Platelets are 524. Sedimentation rate is 86. BUN is 5 and creatinine 0.8. LFTs are notable for an alkaline phosphatase of 140. His CRP is 19.5, and his albumin is 2.6. Urine and blood cultures are pending. In summary, this is a 19-year-old man with possible renal mass, abscess versus malignancy. The etiology of the abscess is unclear. UA is negative. Blood cultures are pending. Would continue vancomycin and Zosyn. Would get records from [facility]. Urology consult regarding renal drainage and biopsy. Would offer HIV testing and would obtain an echo. I called microbiology at [facility] with the patient's permission, and blood cultures there are negative to date. Further recommendations to follow. Bin [id number]
[2019-05-01] MEDS: oxyCODONE HCL 5 MG TABLET PO PRN ×4 (00:01→17:56)
[2019-05-01] MEDS: VANCOMYCIN 1 GM in D5W (PRE-DOCKED) 1,000 MG/250 ML IVPB SCH ×2 (00:02→14:05)
[2019-05-01] MEDS: SODIUM CHLORIDE 1,000 ML IV SCH ×3 (00:07→15:19)
[2019-05-01] MEDS ORDERED: VANCOMYCIN 1 GM in D5W (PRE-DOCKED) 1,000 MG/250 ML IVPB SCH (01:00)
[2019-05-01] MEDS ORDERED: PIPERACILLIN/TAZOB 3.375 GM 3.375 GM in DEXTROSE 5%-WATER - 50 ML IVPB SCH (02:00)
[2019-05-01] MEDS ORDERED: PIPERACILLIN/TAZOBACTAM 4.5 GM VIAL IVPB ONE ×4 (03:27→21:20)
[2019-05-01] MEDS ORDERED: DEXTROSE 5%-WATER 100 ML IVPB ONE ×4 (03:28→21:21)
[2019-05-01] MEDS: PIPERACILLIN/TAZOB 4.5 GM 4.5 GM in DEXTROSE 5%-WATER 100 ML IVPB SCH ×4 (03:31→21:51)
[2019-05-01 07:54] LABS: BASO % 0.2 % (0-2.0); EOS % 0.6 % (0-4.5); HEMATOCRIT 31.9 % (35.4-49); HEMOGLOBIN 10.8 GM/dL (11.7-16.9); LYMPH % 7.9 % (8-40); MCH 29.5 pg (25.7-33.7); MCHC 33.9 g/dl (32.0-35.9); MEAN CELL VOLUME 87.2 fl (80-96); MEAN PLT VOLUME 7.7 fl (7.5-11.1); MONO % 9.3 % (3.8-10.2); PLATELET COUNT 545 K/MM3 (134-434); RBC 3.66 M/mm3 (4.00-5.60); WHITE BLOOD COUNT 19.2 K/mm3 (4.0-10.0)
[2019-05-01 08:15] LABS: ALBUMIN 2.4 g/dl (3.4-5.0); ANION GAP 8 MMOL/L (8-16); BILIRUBIN,TOTAL 0.9 mg/dL (0.2-1); BLOOD UREA NITROGEN 4.9 mg/dL (7-18); CALCIUM 8.5 mg/dL (8.5-10.1); CHLORIDE 98 mmol/L (98-107); CO2 27 mmol/L (21-32); CREATININE 0.7 mg/dL (0.55-1.3); GLUCOSE,RANDOM 84 mg/dL (74-106); POTASSIUM 4.1 mmol/L (3.5-5.1); SGOT/AST 11 U/L (15-37); SODIUM 134 mmol/L (136-145); TOT PROT 6.9 g/dl (6.4-8.2)
[2019-05-01 08:16] LABS: ALK PHOS 116 U/L (45-117); SGPT/ALT < 6 U/L (13-61)
--- NOTE | 2019-05-01 10:04 | PN ---
Progress Note (short form) - Note Progress Note: RENAl Pt feels better had a drainage procedure done and feels better. Had 10cc of pus removed gets very upset when asked questions that have been asked before Last Vital Signs Temp Pulse Resp BP Pulse Ox 99.0 F 100 H 18 102/63 100 05/01/19 09:06 05/01/19 09:06 05/01/19 09:06 05/01/19 09:06 04/30/19 21:00 lungs clear cvs s1s2 tachycardic abd soft ext no edema drain with some sanguinous fluid CBC, BMP 05/01/19 07:10 05/01/19 07:10 Current Medications Generic Name Dose Route Start Last Admin Trade Name Freq PRN Reason Stop Dose Admin Acetaminophen 1,000 mg 04/30/19 03:08 04/30/19 20:36 Ofirmev Injection - IVPB 1,000 mg Q6H PRN Administration FEVER Sodium Chloride 1,000 mls @ 100 mls/hr 04/30/19 01:15 05/01/19 06:04 Normal Saline - IV Not Given ASDIR TYSON Piperacillin Sod/Tazobactam 100 mls @ 200 mls/hr 04/30/19 15:00 05/01/19 09: 06 Sod 4.5 gm/ Dextrose IVPB 200 mls/hr Q6H-IV TYSON Administration Protocol Oxycodone HCl 5 mg 04/30/19 13:22 04/30/19 19:38 Roxicodone - PO 5 mg Q4H PRN Administration PAIN LEVEL 4 - 6 Oxycodone HCl 10 mg 04/30/19 13:22 05/01/19 06:04 Roxicodone - PO 10 mg Q4H PRN Administration PAIN LEVEL 6-10 Vancomycin HCl 1,000 mg 04/30/19 13:00 05/01/19 00:02 Vancomycin (Pre-Docked) IVPB 1,000 mg BID@0100,1300 TYSON Administration Protocol Impression 1. renal abscess s/p drainage 2 no other medical history Plan -would reimage after drainage is removed to ensure absence of a mass - cont fluids for now - follow cultures - get records from [facility] - check hiv test MV
--- NOTE | 2019-05-01 11:05 | PN ---
Teaching Attending Note Name of Resident: Gracie Harden ATTENDING PHYSICIAN STATEMENT I saw and evaluated the patient. I reviewed the resident's note and discussed the case with the resident. I agree with the resident's findings and plan as documented. SUBJECTIVE: was febrile last night. no CALDERON , no CP or SOB . L flank pain is the same. still no dysuria OBJECTIVE: NAD, awake, alert, and pleasant MMM CV: RRR, a murmur , possibly diastolic in LLSB , no radiation . Abd: soft, TTP in LUQ, and LLQ, no rebound tenderness or guarding. No CVA tenderness . YOLIE drain with thick bloody fluid Lungs: CTAB Ext: no edema or erythema on upper or lower extremities ASSESSMENT AND PLAN: 19 y/o man with no significant PMH who was diagnosed with L renal infection / abscess in [facility] 2 days ago, who presented to [facility] after leaving [place] . 1- L renal abscess VS infected cyst. can't r/o a mass. - s/p IR drainage with a YOLIE drain placement - follow urine cx and abscess drainage cx - send cytology from drainage - cont vanc and zosyn - vanco trough today - was unable to reach [facility] yesterday. will try today. - follow CBC - declined HIV testing - echo with no vegetations. MR and TR noted - paraprotein gap elevated. SPEP/UPEP 2- Thrombocytosis: reactive. will follow 3- DVT: SCDs for now. add heparin SQ
--- NOTE | 2019-05-01 12:17 | PN ---
Progress Note (short form) - Note Progress Note: s/p IR drainage yesterday he now recalls having an ingrown hir on his scalp and had pus draing from the bump about 5 weeks ago no fevers no other abscesses denies IVDU Vital Signs Period Temp Pulse Resp BP Sys/Solano Pulse Ox Last 24 Hr 98.7 F-100.5 F 81-104 17-28 102-138/54-71 100-100 cor-rrr lungs clear abd soft,nt +drain with bloody cloudy fluid ext no edema CBC, BMP 05/01/19 07:10 05/01/19 07:10 Microbiology 04/30/19 15:00 Abscess Body Fluid Culture - Preliminary Presumptive Mrsa (Pbp2a Pos) 04/29/19 20:20 Urine - Urine Clean Catch Urine Culture - Final NO GROWTH OBTAINED 04/29/19 20:45 Blood - Peripheral Venous Blood Culture - Preliminary NO GROWTH OBTAINED AFTER 24 HOURS, INCUBATION TO CONTINUE FOR 4 DAYS. 04/29/19 20:40 Blood - Peripheral Venous Blood Culture - Preliminary NO GROWTH OBTAINED AFTER 24 HOURS, INCUBATION TO CONTINUE FOR 4 DAYS. 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
--- NOTE | 2019-05-01 12:42 | PN ---
Physical Exam: SUBJECTIVE: Patient seen and examined at the bedside, reports his abdominal pain is improved s/p drainage and drain placement. OBJECTIVE: Vital Signs Period Temp Pulse Resp BP Sys/Solano Pulse Ox Last 24 Hr 98.7 F-100.5 F 81-104 17-28 102-138/54-71 100-100 GENERAL: The patient is awake, alert, and fully oriented, in no acute distress, HEAD: Normal with no signs of trauma. EYES: PERRL, extraocular movements intact, sclera anicteric, conjunctiva clear. No ptosis. ENT: Ears normal, nares patent, oropharynx clear without exudates, moist mucous membranes. NECK: Trachea midline, full range of motion, supple. LUNGS: Breath sounds equal, clear to auscultation bilaterally, no wheezes, no crackles, no accessory muscle use. HEART: Regular rate and rhythm, S1, S2, diastolic murmur heard at LLSB. ABDOMEN: Soft, tender to palpation on left side of abdomen, nondistended, normoactive bowel sounds, no guarding, no rebound, no CVA tenderness, L side drain draining serosanguenous/ bloody discharge with some clots. EXTREMITIES: 2+ pulses, warm, well-perfused, no edema. NEUROLOGICAL: Cranial nerves II through XII grossly intact. Normal speech, gait not observed. PSYCH: Normal mood, normal affect. SKIN: Warm, dry, normal turgor, no rashes or lesions noted Laboratory Results - last 24 hr 05/01/19 05/01/19 07:10 07:10 WBC 19.2 H RBC 3.66 L Hgb 10.8 L Hct 31.9 L MCV 87.2 MCH 29.5 MCHC 33.9 RDW 14.0 Plt Count 545 H MPV 7.7 Absolute Neuts (auto) 15.8 H Neutrophils % 82.0 Lymphocytes % 7.9 L Monocytes % 9.3 Eosinophils % 0.6 D Basophils % 0.2 Nucleated RBC % 0 Sodium 134 L Potassium 4.1 Chloride 98 Carbon Dioxide 27 Anion Gap 8 BUN 4.9 L Creatinine 0.7 Est GFR (CKD-EPI)AfAm 156.35 Est GFR (CKD-EPI)NonAf 134.90 Random Glucose 84 Calcium 8.5 Total Bilirubin 0.9 AST 11 L ALT < 6 L Alkaline Phosphatase 116 Total Protein 6.9 Albumin 2.4 L Active Medications Generic Name Dose Route Start Last Admin Trade Name Freq PRN Reason Stop Dose Admin Acetaminophen 1,000 mg 04/30/19 03:08 04/30/19 20:36 Ofirmev Injection - IVPB 1,000 mg Q6H PRN Administration FEVER Heparin Sodium (Porcine) 5,000 unit 05/01/19 14:00 Heparin - SQ TID TYSON Sodium Chloride 1,000 mls @ 100 mls/hr 04/30/19 01:15 05/01/19 06:04 Normal Saline - IV Not Given ASDIR TYSON Piperacillin Sod/Tazobactam 100 mls @ 200 mls/hr 04/30/19 15:00 05/01/19 09: 06 Sod 4.5 gm/ Dextrose IVPB 200 mls/hr Q6H-IV TYSON Administration Protocol Oxycodone HCl 5 mg 04/30/19 13:22 04/30/19 19:38 Roxicodone - PO 5 mg Q4H PRN Administration PAIN LEVEL 4 - 6 Oxycodone HCl 10 mg 04/30/19 13:22 05/01/19 12:09 Roxicodone - PO 10 mg Q4H PRN Administration PAIN LEVEL 6-10 Vancomycin HCl 1,000 mg 04/30/19 13:00 05/01/19 00:02 Vancomycin (Pre-Docked) IVPB 1,000 mg BID@0100,1300 TYSON Administration Protocol Imaging: CT Abd&pelvis w/contrast: There is a 6x6.5x6.9cm complex infiltrative heterogeneous hypovascular mass, possibly multiloculated, in the superior pole of the left kidney. Renal cell carcinoma can have this appearance. There is no clear well-defined peripherally enhancing wall with central fluid cavity to suggest an abscess on the current examination. There is no clear evidence of pyelonephritis in the remaining portions of the left kidney. The left adrenal gland is not clearly identified due to the medial extension of the mass. Right kidney appears normal. CXR - negative for acute pathology ASSESSMENT/PLAN: 19 y/o/m with no PMHx here for abdominal pain, patient told he has a renal abscess at [facility] but signed out AMA and came here. 1- Sepsis 2/2 L renal abscess VS infected cyst, previously treated with Abx in [facility]. - s/p IR drainage and YOLIE drain placement - f/u urine cx and abscess drainage cx - obtain cytology from drainage - cont vanc and zosyn - vanco trough today - will try to contact [facility] to obtain medical record - follow CBC - declined HIV testing - echo with no vegetations. MR and TR noted, RF 55-60% - paraprotein gap elevated. - f/u SPEP/UPEP -pain control with ofirmev and oxycodone 2- Thrombocytosis - reactive - trend with cbcs 3)FEN NS @100mls/hr 4)Prophylaxis -SCDs and heparin sq 5)Disposition -admitted to Med/Surg Visit type - Emergency Visit Emergency Visit: Yes ED Registration Date: 04/29/19 Care time: The patient presented to the Emergency Department on the above date and was hospitalized for further evaluation of their emergent condition. - New Patient This patient is new to me today: No - Critical Care Critical Care patient: No - Discharge Referral Referred to [facility] Med P.C.: No ATTENDING PHYSICIAN STATEMENT I saw and evaluated the patient. I reviewed the resident's note and discussed the case with the resident. I agree with the resident's findings and plan as documented. SUBJECTIVE: OBJECTIVE: ASSESSMENT AND PLAN:
[2019-05-01] MEDS: HEPARIN NA (PORCINE) 5,000 UNITS/ML 1ML VIAL SQ SCH ×2 (14:37→21:52)
[2019-05-01] MEDS: VANCOMYCIN HCL 1,250 MG in DEXTROSE 5%-WATER - 250 ML IVPB SCH (15:19)
[2019-05-01] MEDS: ACETAMINOPHEN 1000 MG/100 ML VIAL (NON FORMULARY) IVPB PRN (18:51)
[2019-05-02] MEDS ORDERED: DEXTROSE 5%-WATER 100 ML IVPB ONE ×4 (00:55→21:58)
[2019-05-02] MEDS ORDERED: PIPERACILLIN/TAZOBACTAM 4.5 GM VIAL IVPB ONE ×4 (00:55→21:58)
[2019-05-02] MEDS: oxyCODONE HCL 5 MG TABLET PO PRN ×5 (01:01→23:48)
[2019-05-02] MEDS: VANCOMYCIN HCL 1,250 MG in DEXTROSE 5%-WATER - 250 ML IVPB SCH ×2 (01:34→15:15)
[2019-05-02] MEDS: PIPERACILLIN/TAZOB 4.5 GM 4.5 GM in DEXTROSE 5%-WATER 100 ML IVPB SCH ×4 (02:23→22:00)
[2019-05-02] MEDS: SODIUM CHLORIDE 1,000 ML IV SCH ×3 (05:56→18:50)
[2019-05-02] MEDS: HEPARIN NA (PORCINE) 5,000 UNITS/ML 1ML VIAL SQ SCH ×3 (05:58→22:39)
[2019-05-02] MEDS: ACETAMINOPHEN 325 MG TABLET (FP) PO PRN ×2 (07:00→22:56)
[2019-05-02 07:42] LABS: ALBUMIN 2.3 g/dl (3.4-5.0); ALK PHOS 112 U/L (45-117); ANION GAP 9 MMOL/L (8-16); BILIRUBIN,TOTAL 0.6 mg/dL (0.2-1); BLOOD UREA NITROGEN 7.7 mg/dL (7-18); CALCIUM 8.5 mg/dL (8.5-10.1); CHLORIDE 98 mmol/L (98-107); CO2 30 mmol/L (21-32); CREATININE 0.7 mg/dL (0.55-1.3); GLUCOSE,RANDOM 81 mg/dL (74-106); POTASSIUM 4.3 mmol/L (3.5-5.1); SGOT/AST 19 U/L (15-37); SGPT/ALT < 6 U/L (13-61); SODIUM 137 mmol/L (136-145); TOT PROT 6.8 g/dl (6.4-8.2)
[2019-05-02 08:19] LABS: BASO % 0.3 % (0-2.0); EOS % 1.6 % (0-4.5); HEMATOCRIT 31.8 % (35.4-49); HEMOGLOBIN 10.9 GM/dL (11.7-16.9); LYMPH % 15.2 % (8-40); MCH 29.9 pg (25.7-33.7); MCHC 34.2 g/dl (32.0-35.9); MEAN CELL VOLUME 87.4 fl (80-96); MEAN PLT VOLUME 7.8 fl (7.5-11.1); MONO % 10.5 % (3.8-10.2); NEUT % 72.4 % (42.8-82.8); PLATELET COUNT 579 K/MM3 (134-434); RBC 3.64 M/mm3 (4.00-5.60); RDW 14.1 % (11.9-15.9); WHITE BLOOD COUNT 12.7 K/mm3 (4.0-10.0)
--- NOTE | 2019-05-02 10:57 | PN ---
Progress Note (short form) - Note Progress Note: s/p IR drainage yesterday he now recalls having an ingrown hir on his scalp and had pus draing from the bump about 5 weeks ago no fevers at that time no other abscesses denies IVDU still with flank pain Vital Signs Period Temp Pulse Resp BP Sys/Solano Pulse Ox Last 24 Hr 98.4 F-99.8 F 82-92 18-20 119-133/60-74 97 cor-rrr llungs decreased bs at bases abd soft,nt +YOLIE minimal drainage ext no edema CBC, BMP 05/02/19 06:25 05/02/19 06:25 Microbiology 04/30/19 15:00 Abscess Body Fluid Culture - Preliminary Mr S Aureus 04/29/19 20:45 Blood - Peripheral Venous Blood Culture - Preliminary NO GROWTH OBTAINED AFTER 48 HOURS, INCUBATION TO CONTINUE FOR 3 DAYS. 04/29/19 20:40 Blood - Peripheral Venous Blood Culture - Preliminary NO GROWTH OBTAINED AFTER 48 HOURS, INCUBATION TO CONTINUE FOR 3 DAYS. 04/29/19 20:20 Urine - Urine Clean Catch Urine Culture - Final NO GROWTH OBTAINED a/p probable MRSA renal abscess- most likely from a transient bacteremia I offered HIV testing- he states "Ithought you did that already"- agreeable to testing will order for am echo-noted isolation continue vanco/zosyn until culture is finalized , if pure MRSA, can d/c zosyn vanco trough ordered d/w patient at length he is happy his WBC count is better Problem List - Problems (1) Left renal mass Code(s): N28.89 - OTHER SPECIFIED DISORDERS OF KIDNEY AND URETER
--- NOTE | 2019-05-02 13:26 | PN ---
Progress Note (short form) - Note Progress Note: Subjective: No fever or chills. No CALDERON. L flank pain Objective: Vital Signs: Last Vital Signs Temp Pulse Resp BP Pulse Ox 99.8 F H 84 18 119/60 97 05/02/19 06:51 05/02/19 06:51 05/02/19 09:00 05/02/19 06:51 05/02/19 09:00 Laboratory Results - last 24 hr 05/01/19 05/02/19 05/02/19 12:55 06:25 06:25 WBC 12.7 H RBC 3.64 L Hgb 10.9 L Hct 31.8 L MCV 87.4 MCH 29.9 MCHC 34.2 RDW 14.1 Plt Count 579 H MPV 7.8 Absolute Neuts (auto) 9.2 H Neutrophils % 72.4 Lymphocytes % 15.2 D Monocytes % 10.5 H Eosinophils % 1.6 D Basophils % 0.3 Nucleated RBC % 0 Sodium 137 Potassium 4.3 Chloride 98 Carbon Dioxide 30 Anion Gap 9 BUN 7.7 Creatinine 0.7 Est GFR (CKD-EPI)AfAm 156.35 Est GFR (CKD-EPI)NonAf 134.90 Random Glucose 81 Calcium 8.5 Total Bilirubin 0.6 AST 19 ALT < 6 L Alkaline Phosphatase 112 Total Protein 6.8 Albumin 2.3 L Vancomycin Pre-Dose 2.6 L Physical Exam: NAD, awake, alert, and pleasant MMM. CV: RRR, a murmur, possibly diastolic in LLSB, no radiation. Abd: soft, NT. No CVA tenderness. L flank drain with bloody material Lungs: CTAB Ext: No edema or erythema on upper or lower extremities. ASSESSMENT AND PLAN: 19 y/o man with no significant PMH who was diagnosed with L renal infection / abscess in [facility] 2 days ago, who presented to [facility] after leaving [facility] . 1- L renal MRSA abscess VS infected cyst. - s/p IR drainage with a YOLIE drain placement - cytology from drainage pending - cont vanc and zosyn - WBC improved - agreed to HIV testing in AM ( d/w ID ) - paraprotein gap elevated. SPEP/UPEP 2- Thrombocytosis: reactive. will follow 3- DVT: SCDs , and heparin SQ Visit type - Emergency Visit Emergency Visit: Yes ED Registration Date: 04/29/19 Care time: The patient presented to the Emergency Department on the above date and was hospitalized for further evaluation of their emergent condition. - New Patient This patient is new to me today: No - Critical Care Critical Care patient: No
[2019-05-02] MEDS ORDERED: PT OWN MED DRAWER 7, Y5N ONE (16:09)
[2019-05-03] MEDS ORDERED: PIPERACILLIN/TAZOBACTAM 4.5 GM VIAL IVPB ONE ×2 (01:27→08:04)
[2019-05-03] MEDS ORDERED: PT OWN MED DRAWER 7, Y5N ONE (01:27)
[2019-05-03] MEDS ORDERED: DEXTROSE 5%-WATER 100 ML IVPB ONE ×2 (01:27→08:05)
[2019-05-03] MEDS: VANCOMYCIN HCL 1,250 MG in DEXTROSE 5%-WATER - 250 ML IVPB SCH ×2 (01:35→16:05)
[2019-05-03] MEDS: PIPERACILLIN/TAZOB 4.5 GM 4.5 GM in DEXTROSE 5%-WATER 100 ML IVPB SCH ×2 (04:00→09:47)
[2019-05-03] MEDS: SODIUM CHLORIDE 1,000 ML IV SCH (04:39)
[2019-05-03] MEDS: HEPARIN NA (PORCINE) 5,000 UNITS/ML 1ML VIAL SQ SCH ×3 (05:05→22:02)
[2019-05-03] MEDS: oxyCODONE HCL 5 MG TABLET PO PRN ×3 (06:37→18:02)
[2019-05-03 07:41] LABS: BASO % 0.4 % (0-2.0); EOS % 2.1 % (0-4.5); HEMATOCRIT 32.2 % (35.4-49); LYMPH % 17.8 % (8-40); MCHC 34.2 g/dl (32.0-35.9); MEAN CELL VOLUME 87.7 fl (80-96); MEAN PLT VOLUME 7.6 fl (7.5-11.1); MONO % 9.1 % (3.8-10.2); NEUT % 70.6 % (42.8-82.8); PLATELET COUNT 623 K/MM3 (134-434); RBC 3.67 M/mm3 (4.00-5.60); RDW 13.9 % (11.9-15.9); WHITE BLOOD COUNT 11.6 K/mm3 (4.0-10.0)
--- NOTE | 2019-05-03 11:42 | PN ---
Physical Exam: SUBJECTIVE: Patient seen and examined at the bedside, patient with low grade fever overnight to 100.8. This morning the patient is agitated. No complaints except he reports he does have pain at the drain site. OBJECTIVE: Vital Signs Period Temp Pulse Resp BP Sys/Solano Pulse Ox Last 24 Hr 98.1 F-100.8 F 74-98 18-20 113-131/56-69 98 GENERAL: The patient is awake, alert, and fully oriented, in no acute distress, HEAD: Normal with no signs of trauma. EYES: PERRL, extraocular movements intact, sclera anicteric, conjunctiva clear. No ptosis. ENT: Ears normal, nares patent, oropharynx clear without exudates, moist mucous membranes. NECK: Trachea midline, full range of motion, supple. LUNGS: Breath sounds equal, clear to auscultation bilaterally, no wheezes, no crackles, no accessory muscle use. HEART: Regular rate and rhythm, S1, S2, diastolic murmur heard at LLSB. ABDOMEN: Soft, no tenderness to palpation, nondistended, normoactive bowel sounds, no guarding, no rebound, no CVA tenderness, L side drain draining clear slightly milky fluid but almost nothing present in drain (patiet reported it was last changed last night). EXTREMITIES: 2+ pulses, warm, well-perfused, no edema. NEUROLOGICAL: Cranial nerves II through XII grossly intact. Normal speech, gait not observed. PSYCH: agitated mood SKIN: Warm, dry, normal turgor, no rashes or lesions noted Laboratory Results - last 24 hr 05/03/19 05/03/19 06:15 06:15 WBC 11.6 H RBC 3.67 L Hgb 11.0 L Hct 32.2 L MCV 87.7 MCH 30.0 MCHC 34.2 RDW 13.9 Plt Count 623 H MPV 7.6 Absolute Neuts (auto) 8.2 H Neutrophils % 70.6 Lymphocytes % 17.8 Monocytes % 9.1 Eosinophils % 2.1 Basophils % 0.4 Nucleated RBC % 0 HIV 1&2 Antibody Screen Negative HIV P24 Antigen Negative Active Medications Generic Name Dose Route Start Last Admin Trade Name Freq PRN Reason Stop Dose Admin Acetaminophen 650 mg 05/02/19 06:44 05/02/19 22:56 Tylenol - PO 650 mg Q6H PRN Administration FEVER Heparin Sodium (Porcine) 5,000 unit 05/01/19 14:00 05/03/19 05:05 Heparin - SQ 5,000 unit TID TYSON Administration Sodium Chloride 1,000 mls @ 100 mls/hr 04/30/19 01:15 05/03/19 04:39 Normal Saline - IV Not Given ASDIR TYSON Vancomycin HCl 1,250 mg/ 250 mls @ 166.667 mls/hr 05/01/19 14:15 05/03/19 01: 35 Dextrose IVPB 166.667 mls/hr Q12H TYSON Administration Protocol Oxycodone HCl 5 mg 04/30/19 13:22 05/02/19 18:48 Roxicodone - PO 5 mg Q4H PRN Administration PAIN LEVEL 4 - 6 Oxycodone HCl 10 mg 04/30/19 13:22 05/03/19 06:37 Roxicodone - PO 10 mg Q4H PRN Administration PAIN LEVEL 6-10 Imaging: CT Abd&pelvis w/contrast: There is a 6x6.5x6.9cm complex infiltrative heterogeneous hypovascular mass, possibly multiloculated, in the superior pole of the left kidney. Renal cell carcinoma can have this appearance. There is no clear well-defined peripherally enhancing wall with central fluid cavity to suggest an abscess on the current examination. There is no clear evidence of pyelonephritis in the remaining portions of the left kidney. The left adrenal gland is not clearly identified due to the medial extension of the mass. Right kidney appears normal. CXR - negative for acute pathology ASSESSMENT/PLAN: 19 y/o/m with no PMHx here for abdominal pain, patient told he has a renal abscess at [facility] but signed out AMA and came here. 1- Sepsis most likely 2/2 MRSA renal abscess- most likely from a transient bacteremia, patient still with low grade fevers overnight. - s/p IR drainage and YOLIE drain placement - cytology from drainage pending - f/u CT showing pigtail catheter slightly displaced with some areas of abcess/ fluid collection still present. As patient is still spiking fevers, will f/u with IR tomorrow about repositioning the drain - cont vanc - zosyn d/c'd per ID - vanco trough at 1 pm today - HIV testing negative - paraprotein gap elevated. SPEP/UPEP - repeat CT today. - paraprotein gap elevated. - f/u SPEP/UPEP -pain control with ofirmev and oxycodone - repeat inflammatory markers in am - ID following, appreciate recommendations - records obtained from [facility], blood cx with no growth for 48h, abdominal CT per their report showing complicated abcess, HIV-1 AB EIA reactive however repeat 4th gen HIV Ag/Ab non-reactive. Copy can be found in patient's paper chart. 2- Thrombocytosis - reactive - trend with cbcs 3)FEN NS @100mls/hr 4)Prophylaxis -SCDs and heparin sq 5)Disposition -admitted to Med/Surg Visit type - Emergency Visit Emergency Visit: Yes ED Registration Date: 04/29/19 Care time: The patient presented to the Emergency Department on the above date and was hospitalized for further evaluation of their emergent condition. - New Patient This patient is new to me today: No - Critical Care Critical Care patient: No - Discharge Referral Referred to [facility] Med P.C.: No ATTENDING PHYSICIAN STATEMENT I saw and evaluated the patient. I reviewed the resident's note and discussed the case with the resident. I agree with the resident's findings and plan as documented. SUBJECTIVE: OBJECTIVE: ASSESSMENT AND PLAN:
--- NOTE | 2019-05-03 12:02 | PN ---
Teaching Attending Note Name of Resident: Gracie Harden ATTENDING PHYSICIAN STATEMENT I saw and evaluated the patient. I reviewed the resident's note and discussed the case with the resident. I agree with the resident's findings and plan as documented. SUBJECTIVE: Very annoyed that he is asked the same questions every day. OBJECTIVE: NAD, cursing . Physical exam not completed ASSESSMENT AND PLAN: 19 y/o man with no significant PMH who was diagnosed with L renal infection / abscess in [facility] 2 days ago, who presented to [facility] after leaving [place] . 1- L renal MRSA abscess - s/p IR drainage with a YOLIE drain placement - cytology from drainage pending - cont vanc and zosyn . follwo ID Recs regarding Abx - vanco trough at 1 pm today - follow HIV testing - paraprotein gap elevated. SPEP/UPEP - repeat CT today. 2- Thrombocytosis: reactive. will follow. will need to be repeat after dc and after infection resolves 3- DVT: SCDs , and heparin SQ
--- NOTE | 2019-05-03 12:43 | PN ---
Progress Note (short form) - Note Progress Note: IR drainage 04/30 still with flank pain low grade fever good appetite Vital Signs Period Temp Pulse Resp BP Sys/Solano Pulse Ox Last 24 Hr 98.1 F-100.8 F 74-98 18-20 113-131/56-69 98 cor-rrr lungs clear abd soft,nt ext no edema minimal drainage from catheter CBC, BMP 05/03/19 06:15 05/02/19 06:25 Laboratory Tests 04/29/19 04/29/19 05/03/19 20:40 20:40 06:15 ESR 86 H C-Reactive Protein 19.5 H HIV 1&2 Antibody Screen Negative HIV P24 Antigen Negative Microbiology 04/29/19 20:45 Blood - Peripheral Venous Blood Culture - Preliminary NO GROWTH OBTAINED AFTER 72 HOURS, INCUBATION TO CONTINUE FOR 2 DAYS. 04/29/19 20:40 Blood - Peripheral Venous Blood Culture - Preliminary NO GROWTH OBTAINED AFTER 72 HOURS, INCUBATION TO CONTINUE FOR 2 DAYS. 04/30/19 15:00 Abscess Gram Stain - Final 04/30/19 15:00 Abscess Body Fluid Culture - Final Mr S Aureus 04/30/19 15:00 Abscess Anaerobic Culture - Final NO ANAEROBES WERE ISOLATED 04/29/19 20:20 Urine - Urine Clean Catch Urine Culture - Final NO GROWTH OBTAINED Current Medications Acetaminophen (Tylenol -) 650 mg PO Q6H PRN PRN Reason: FEVER Last Admin: 05/02/19 22:56 Dose: 650 mg Heparin Sodium (Porcine) (Heparin -) 5,000 unit SQ TID TYSON Last Admin: 05/03/19 05:05 Dose: 5,000 unit Sodium Chloride (Normal Saline -) 1,000 mls @ 100 mls/hr IV ASDIR [facility] Last Admin: 05/03/19 04:39 Dose: Not Given Vancomycin HCl 1,250 mg/ (Dextrose) 250 mls @ 166.667 mls/hr IVPB Q12H [facility]; Protocol Last Admin: 05/03/19 01:35 Dose: 166.667 mls/hr Oxycodone HCl (Roxicodone -) 5 mg PO Q4H PRN PRN Reason: PAIN LEVEL 4 - 6 Last Admin: 05/02/19 18:48 Dose: 5 mg Oxycodone HCl (Roxicodone -) 10 mg PO Q4H PRN PRN Reason: PAIN LEVEL 6-10 Last Admin: 05/03/19 06:37 Dose: 10 mg a/p probable MRSA renal abscess- most likely from a transient bacteremia zosyn d/clarice continue vancomycin trough today low grade fever ?reposition drainage catheter (ct scan noted) repeat inflammatory markers in am Problem List - Problems (1) Left renal mass Code(s): N28.89 - OTHER SPECIFIED DISORDERS OF KIDNEY AND URETER
--- NOTE | 2019-05-03 15:34 | PN ---
Progress Note, Physician History of Present Illness: Pt seen and examined at bedside. He is awake and alert. He says that he feels much better. He has a drain in place. - Current Medication List Current Medications: Active Medications Acetaminophen (Tylenol -) 650 mg PO Q6H PRN PRN Reason: FEVER Last Admin: 05/02/19 22:56 Dose: 650 mg Heparin Sodium (Porcine) (Heparin -) 5,000 unit SQ TID TYSON Last Admin: 05/03/19 14:58 Dose: 5,000 unit Sodium Chloride (Normal Saline -) 1,000 mls @ 100 mls/hr IV ASDIR TYSON Last Admin: 05/03/19 04:39 Dose: Not Given Vancomycin HCl 1,250 mg/ (Dextrose) 250 mls @ 166.667 mls/hr IVPB Q12H [facility]; Protocol Last Admin: 05/03/19 01:35 Dose: 166.667 mls/hr - Objective Vital Signs: Vital Signs Temperature 99.8 F H 05/03/19 11:00 Pulse Rate 98 H 05/03/19 11:00 Respiratory Rate 20 05/03/19 11:00 Blood Pressure 131/69 05/03/19 11:00 O2 Sat by Pulse Oximetry (%) 98 05/02/19 21:00 Constitutional: Yes: Calm Eyes: Yes: Conjunctiva Clear HENT: Yes: Atraumatic Neck: Yes: Supple Cardiovascular: Yes: S1, S2 Respiratory: Yes: CTA Bilaterally Gastrointestinal: Yes: Soft Genitourinary: Yes: WNL, Other (drain on place) Musculoskeletal: Yes: WNL Edema: No Integumentary: Yes: Tattoos Neurological: Yes: Oriented Psychiatric: Yes: Oriented Labs: CBC, BMP 05/03/19 06:15 05/02/19 06:25 INR, PTT INR 1.64 (0.83-1.09) H 04/30/19 06:45 Problem List - Problems (1) Murmur Code(s): R01.1 - CARDIAC MURMUR, UNSPECIFIED (2) Flank pain, acute Code(s): R10.9 - UNSPECIFIED ABDOMINAL PAIN (3) Left renal mass Code(s): N28.89 - OTHER SPECIFIED DISORDERS OF KIDNEY AND URETER Assessment/Plan Current Medications Generic Name Dose Route Start Last Admin Trade Name Freq PRN Reason Stop Dose Admin Acetaminophen 650 mg 10/06/19 06:44 05/02/19 22:56 Tylenol - PO 650 mg Q6H PRN Administration FEVER Heparin Sodium (Porcine) 5,000 unit 05/01/19 14:00 05/03/19 14:58 Heparin - SQ 5,000 unit TID TYSON Administration Sodium Chloride 1,000 mls @ 100 mls/hr 04/30/19 01:15 05/03/19 04:39 Normal Saline - IV Not Given ASDIR TYSON Vancomycin HCl 1,250 mg/ 250 mls @ 166.667 mls/hr 05/01/19 14:15 05/03/19 01: 35 Dextrose IVPB 166.667 mls/hr Q12H TYSON Administration Protocol Impression 1. renal abscess vs mass 2. recent uti 3. heart murmur Plan - follow cultures - renal function stable - abx per ID - repeat ct report reviewed, urology follow up - get records from [facility]
[2019-05-03] MEDS: ACETAMINOPHEN 325 MG TABLET (FP) PO PRN (18:03)
[2019-05-04] MEDS ORDERED: PT OWN MED DRAWER 7, Y5N ONE (01:44)
[2019-05-04] MEDS: VANCOMYCIN HCL 1,250 MG in DEXTROSE 5%-WATER - 250 ML IVPB SCH (02:01)
[2019-05-04] MEDS: SODIUM CHLORIDE 1,000 ML IV SCH ×2 (02:02→10:18)
[2019-05-04] MEDS: HEPARIN NA (PORCINE) 5,000 UNITS/ML 1ML VIAL SQ SCH ×3 (06:07→22:57)
[2019-05-04 07:58] LABS: ALBUMIN 2.5 g/dl (3.4-5.0); BILIRUBIN,TOTAL 0.5 mg/dL (0.2-1); BLOOD UREA NITROGEN 7.3 mg/dL (7-18); CALCIUM 9.1 mg/dL (8.5-10.1); CREATININE 0.6 mg/dL (0.55-1.3); POTASSIUM 4.7 mmol/L (3.5-5.1); TOT PROT 7.6 g/dl (6.4-8.2)
[2019-05-04 08:00] LABS: BASO % 0.4 % (0-2.0); HEMATOCRIT 35.1 % (35.4-49); HEMOGLOBIN 11.6 GM/dL (11.7-16.9); LYMPH % 15.2 % (8-40); MCH 28.9 pg (25.7-33.7); MCHC 33.1 g/dl (32.0-35.9); MEAN CELL VOLUME 87.3 fl (80-96); MEAN PLT VOLUME 7.4 fl (7.5-11.1); MONO % 8.3 % (3.8-10.2); NEUT % 74.1 % (42.8-82.8); PLATELET COUNT 712 K/MM3 (134-434); RBC 4.02 M/mm3 (4.00-5.60); RDW 14.4 % (11.9-15.9); WHITE BLOOD COUNT 12.6 K/mm3 (4.0-10.0)
[2019-05-04] MEDS ORDERED: DAPTOMYCIN 440 MG in SODIUM CHLORIDE 50 ML IVPB SCH (10:00)
[2019-05-04] MEDS: DOCUSATE SODIUM 100 MG CAPSULE (FP) PO SCH (10:17)
[2019-05-04] MEDS: DAPTOMYCIN 450 MG in SODIUM CHLORIDE 50 ML IVPB SCH (11:43)
[2019-05-04] MEDS: ACETAMINOPHEN 325 MG TABLET (FP) PO PRN ×2 (14:23→22:40)
[2019-05-04] MEDS: oxyCODONE HCL 5 MG TABLET PO PRN ×2 (14:24→22:40)
--- NOTE | 2019-05-04 15:44 | PN ---
Progress Note, Physician History of Present Illness: Pt seen and examine at bedside. He is awake and alert. He denies shortness of breath. - Current Medication List Current Medications: Active Medications Acetaminophen (Tylenol -) 650 mg PO Q6H PRN PRN Reason: FEVER Last Admin: 05/04/19 14:23 Dose: 650 mg Docusate Sodium (Colace -) 100 mg PO DAILY [facility] Last Admin: 05/04/19 10:17 Dose: 100 mg Heparin Sodium (Porcine) (Heparin -) 5,000 unit SQ TID TYSON Last Admin: 05/04/19 13:46 Dose: 5,000 unit Sodium Chloride (Normal Saline -) 1,000 mls @ 100 mls/hr IV ASDIR TYSON Last Admin: 05/04/19 10:18 Dose: 100 mls/hr Daptomycin 450 mg/ Sodium (Chloride) 50 mls @ 50 mls/hr IVPB DAILY [facility]; Protocol Last Admin: 05/04/19 11:43 Dose: 50 mls/hr Oxycodone HCl (Roxicodone -) 5 mg PO Q8H PRN PRN Reason: PAIN LEVEL 7 - 10 Last Admin: 05/04/19 14:24 Dose: 5 mg - Objective Vital Signs: Vital Signs Temperature 99.2 F 05/04/19 10:00 Pulse Rate 90 05/04/19 10:00 Respiratory Rate 20 05/04/19 10:00 Blood Pressure 129/64 05/04/19 10:00 O2 Sat by Pulse Oximetry (%) 98 05/02/19 21:00 Constitutional: Yes: Calm Eyes: Yes: Conjunctiva Clear HENT: Yes: Atraumatic Neck: Yes: Supple Cardiovascular: Yes: S1, S2 Respiratory: Yes: CTA Bilaterally Gastrointestinal: Yes: Soft Genitourinary: Yes: WNL Musculoskeletal: Yes: WNL Edema: No Integumentary: Yes: Tattoos Neurological: Yes: Oriented Psychiatric: Yes: Oriented Labs: CBC, BMP 05/04/19 06:10 05/04/19 06:10 INR, PTT INR 1.64 (0.83-1.09) H 04/30/19 06:45 Problem List - Problems (1) Murmur Code(s): R01.1 - CARDIAC MURMUR, UNSPECIFIED (2) Flank pain, acute Code(s): R10.9 - UNSPECIFIED ABDOMINAL PAIN (3) Left renal mass Code(s): N28.89 - OTHER SPECIFIED DISORDERS OF KIDNEY AND URETER Assessment/Plan Current Medications Generic Name Dose Route Start Last Admin Trade Name Freq PRN Reason Stop Dose Admin Acetaminophen 650 mg 05/02/19 06:44 05/04/19 14:23 Tylenol - PO 650 mg Q6H PRN Administration FEVER Docusate Sodium 100 mg 05/04/19 10:00 05/04/19 10:17 Colace - PO 100 mg DAILY TYSON Administration Heparin Sodium (Porcine) 5,000 unit 05/01/19 14:00 05/04/19 13:46 Heparin - SQ 5,000 unit TID TYSON Administration Sodium Chloride 1,000 mls @ 100 mls/hr 04/30/19 01:15 05/04/19 10:18 Normal Saline - IV 100 mls/hr ASDIR TYSON Administration Daptomycin 450 mg/ Sodium 50 mls @ 50 mls/hr 05/04/19 11:00 05/04/19 11:43 Chloride IVPB 50 mls/hr DAILY TYSON Administration Protocol Oxycodone HCl 5 mg 05/03/19 17:50 05/04/19 14:24 Roxicodone - PO 5 mg Q8H PRN Administration PAIN LEVEL 7 - 10 Impression 1. renal abscess vs mass 2. recent uti 3. heart murmur Plan - abx per medical team - monitor renal function - renal function is stable - pain control - urology follow up
--- NOTE | 2019-05-04 17:31 | PN ---
Physical Exam: SUBJECTIVE: Patient seen and examined at the bedside, there were no acute events. Will discuss with IR about possibly repositioning drain today. OBJECTIVE: Vital Signs Period Temp Pulse Resp BP Sys/Solano Pulse Ox Last 24 Hr 99 F-99.2 F 80-90 20-20 109-129/58-74 GENERAL: The patient is awake, alert, and fully oriented, in no acute distress, HEAD: Normal with no signs of trauma. EYES: PERRL, extraocular movements intact, sclera anicteric, conjunctiva clear. No ptosis. ENT: Ears normal, nares patent, oropharynx clear without exudates, moist mucous membranes. NECK: Trachea midline, full range of motion, supple. LUNGS: Breath sounds equal, clear to auscultation bilaterally, no wheezes, no crackles, no accessory muscle use. HEART: Regular rate and rhythm, S1, S2, diastolic murmur heard at LLSB. ABDOMEN: Soft, no tenderness to palpation, nondistended, normoactive bowel sounds, no guarding, no rebound, no CVA tenderness, L side drain draining clear slightly milky fluid but almost nothing present in drain (patiet reported it was last changed last night). EXTREMITIES: 2+ pulses, warm, well-perfused, no edema. NEUROLOGICAL: Cranial nerves II through XII grossly intact. Normal speech, gait not observed. PSYCH: agitated mood SKIN: Warm, dry, normal turgor, no rashes or lesions noted Laboratory Results - last 24 hr 05/04/19 05/04/19 05/04/19 06:10 06:10 13:41 WBC 12.6 H RBC 4.02 Hgb 11.6 L Hct 35.1 L MCV 87.3 MCH 28.9 MCHC 33.1 RDW 14.4 Plt Count 712 H MPV 7.4 L Absolute Neuts (auto) 9.4 H Neutrophils % 74.1 Lymphocytes % 15.2 Monocytes % 8.3 Eosinophils % 2.0 Basophils % 0.4 Nucleated RBC % 0 ESR 86 H Sodium 136 Potassium 4.7 Chloride 101 Carbon Dioxide 30 Anion Gap 6 L BUN 7.3 Creatinine 0.6 Est GFR (CKD-EPI)AfAm 166.58 Est GFR (CKD-EPI)NonAf 143.72 Random Glucose 79 Calcium 9.1 Total Bilirubin 0.5 AST 21 ALT 9 L Alkaline Phosphatase 133 H C-Reactive Protein 15.2 H Total Protein 7.6 Albumin 2.5 L Active Medications Generic Name Dose Route Start Last Admin Trade Name Freq PRN Reason Stop Dose Admin Acetaminophen 650 mg 05/02/19 06:44 05/04/19 14:23 Tylenol - PO 650 mg Q6H PRN Administration FEVER Docusate Sodium 100 mg 05/04/19 10:00 05/04/19 10:17 Colace - PO 100 mg DAILY TYSON Administration Heparin Sodium (Porcine) 5,000 unit 05/01/19 14:00 05/04/19 13:46 Heparin - SQ 5,000 unit TID TYSON Administration Sodium Chloride 1,000 mls @ 100 mls/hr 04/30/19 01:15 05/04/19 10:18 Normal Saline - IV 100 mls/hr ASDIR TYSON Administration Daptomycin 450 mg/ Sodium 50 mls @ 50 mls/hr 05/04/19 11:00 05/04/19 11:43 Chloride IVPB 50 mls/hr DAILY TYSON Administration Protocol Oxycodone HCl 5 mg 05/03/19 17:50 05/04/19 14:24 Roxicodone - PO 5 mg Q8H PRN Administration PAIN LEVEL 7 - 10 Impression 1. renal abscess vs mass 2. recent uti 3. heart murmur Plan - abx per medical team - monitor renal function - renal function is stable - pain control - urology follow up Imaging: CT Abd&pelvis w/contrast: There is a 6x6.5x6.9cm complex infiltrative heterogeneous hypovascular mass, possibly multiloculated, in the superior pole of the left kidney. Renal cell carcinoma can have this appearance. There is no clear well-defined peripherally enhancing wall with central fluid cavity to suggest an abscess on the current examination. There is no clear evidence of pyelonephritis in the remaining portions of the left kidney. The left adrenal gland is not clearly identified due to the medial extension of the mass. Right kidney appears normal. CXR - negative for acute pathology ASSESSMENT/PLAN: 19 y/o/m with no PMHx here for abdominal pain, patient told he has a renal abscess at [facility] but signed out AMA and came here. 1- Sepsis most likely 2/2 MRSA renal abscess- most likely from a transient bacteremia, patient still with low grade fevers overnight. - s/p IR drainage and YOLIE drain placement - cytology from drainage pending - f/u CT showing pigtail catheter slightly displaced with some areas of abcess/ fluid collection still present. - discussed with IR this morning, they will re-insert new drain today - d/c'd vanc as patient not reaching therapeutic troughs - continue with dapto per ID - paraprotein gap elevated. F/U SPEP/UPEP -pain control with ofirmev and oxycodone - ID following, appreciate recommendations - records obtained from [facility], blood cx with no growth for 48h, abdominal CT per their report showing complicated abcess, HIV-1 AB EIA reactive however repeat 4th gen HIV Ag/Ab non-reactive. Copy can be found in patient's paper chart. 2- Thrombocytosis - reactive - trend with cbcs 3)FEN NS @100mls/hr 4)Prophylaxis -SCDs and heparin sq 5)Disposition -admitted to Med/Surg Visit type - Emergency Visit Emergency Visit: Yes ED Registration Date: 04/29/19 Care time: The patient presented to the Emergency Department on the above date and was hospitalized for further evaluation of their emergent condition. - New Patient This patient is new to me today: No - Critical Care Critical Care patient: No - Discharge Referral Referred to [facility] Med P.C.: No ATTENDING PHYSICIAN STATEMENT I saw and evaluated the patient. I reviewed the resident's note and discussed the case with the resident. I agree with the resident's findings and plan as documented. SUBJECTIVE: OBJECTIVE: ASSESSMENT AND PLAN:
--- NOTE | 2019-05-04 21:42 | PN ---
Teaching Attending Note Name of Resident: Gracie Harden ATTENDING PHYSICIAN STATEMENT I saw and evaluated the patient. I reviewed the resident's note and discussed the case with the resident. I agree with the resident's findings and plan as documented. SUBJECTIVE: Patient is lying in bed with no acute distress. OBJECTIVE: Vital Signs Temperature 99.2 F 05/04/19 10:00 Pulse Rate 90 05/04/19 10:00 Respiratory Rate 20 05/04/19 10:00 Blood Pressure 129/64 05/04/19 10:00 O2 Sat by Pulse Oximetry (%) 99 05/04/19 10:20 GENERAL: The patient is awake, alert, and fully oriented, in no acute distress. HEAD: Normal with no signs of trauma. EYES: PERRL, extraocular movements intact, sclera anicteric, conjunctiva clear. ENT: Ears normal, oropharynx clear without exudates, moist mucous membranes. NECK: Trachea midline, full range of motion, supple. LUNGS: Breath sounds equal, clear to auscultation bilaterally, no wheezes, no crackles, no accessory muscle use. HEART: Regular rate and rhythm, S1, S2 without murmur, rub or gallop. ABDOMEN: Soft, nontender, nondistended, normoactive bowel sounds, no guarding, no rebound, no hepatosplenomegaly, no masses. EXTREMITIES: 2+ pulses, warm, well-perfused, no edema. NEUROLOGICAL: Cranial nerves II through XII grossly intact. Normal speech, gait not observed. PSYCH: Normal mood, normal affect. SKIN: Warm, dry, normal turgor, no rashes or lesions noted CBCD WBC 12.6 K/mm3 (4.0-10.0) H 05/04/19 06:10 RBC 4.02 M/mm3 (4.00-5.60) 05/04/19 06:10 Hgb 11.6 GM/dL (11.7-16.9) L 05/04/19 06:10 Hct 35.1 % (35.4-49) L 05/04/19 06:10 MCV 87.3 fl (80-96) 05/04/19 06:10 MCHC 33.1 g/dl (32.0-35.9) 05/04/19 06:10 RDW 14.4 % (11.9-15.9) 05/04/19 06:10 Plt Count 712 K/MM3 (134-434) H 05/04/19 06:10 MPV 7.4 fl (7.5-11.1) L 05/04/19 06:10 CMP Sodium 136 mmol/L (136-145) 05/04/19 06:10 Potassium 4.7 mmol/L (3.5-5.1) 05/04/19 06:10 Chloride 101 mmol/L (98-107) 05/04/19 06:10 Carbon Dioxide 30 mmol/L (21-32) 05/04/19 06:10 Anion Gap 6 MMOL/L (8-16) L 05/04/19 06:10 BUN 7.3 mg/dL (7-18) 05/04/19 06:10 Creatinine 0.6 mg/dL (0.55-1.3) 05/04/19 06:10 Random Glucose 79 mg/dL (74-106) 05/04/19 06:10 Calcium 9.1 mg/dL (8.5-10.1) 05/04/19 06:10 Total Bilirubin 0.5 mg/dL (0.2-1) 05/04/19 06:10 AST 21 U/L (15-37) 05/04/19 06:10 ALT 9 U/L (13-61) L 05/04/19 06:10 Alkaline Phosphatase 133 U/L (45-117) H 05/04/19 06:10 Total Protein 7.6 g/dl (6.4-8.2) 05/04/19 06:10 Albumin 2.5 g/dl (3.4-5.0) L 05/04/19 06:10 Current Medications Generic Name Dose Route Start Last Admin Trade Name Freq PRN Reason Stop Dose Admin Acetaminophen 650 mg 05/02/19 06:44 05/04/19 14:23 Tylenol - PO 650 mg Q6H PRN Administration FEVER Docusate Sodium 100 mg 05/04/19 10:00 05/04/19 10:17 Colace - PO 100 mg DAILY TYSON Administration Heparin Sodium (Porcine) 5,000 unit 05/01/19 14:00 05/04/19 13:46 Heparin - SQ 5,000 unit TID TYSON Administration Sodium Chloride 1,000 mls @ 100 mls/hr 04/30/19 01:15 05/04/19 10:18 Normal Saline - IV 100 mls/hr ASDIR TYSON Administration Daptomycin 450 mg/ Sodium 50 mls @ 50 mls/hr 05/04/19 11:00 05/04/19 11:43 Chloride IVPB 50 mls/hr DAILY TYSON Administration Protocol Oxycodone HCl 5 mg 05/03/19 17:50 05/04/19 14:24 Roxicodone - PO 5 mg Q8H PRN Administration PAIN LEVEL 7 - 10 Home Medications Medication Instructions Recorded NK [No Known Home Medication] 04/29/19 ASSESSMENT AND PLAN: Patient is a 19y/o male presented with L renal infection /abscess in Health system 2 days ago, who presented to [facility] after leaving A . 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 vanco trough, follow HIV testing , paraprotein gap elevated. SPEP/UPEP # Thrombocytosis: reactive. will follow. will need to be repeat after dc and after infection resolves DVT: SCDs , and heparin SQ
[2019-05-05] MEDS: SODIUM CHLORIDE 1,000 ML IV SCH ×2 (01:39→23:45)
[2019-05-05] MEDS: HEPARIN NA (PORCINE) 5,000 UNITS/ML 1ML VIAL SQ SCH ×3 (07:01→20:59)
[2019-05-05] MEDS: oxyCODONE HCL 5 MG TABLET PO PRN ×3 (07:03→23:43)
[2019-05-05] MEDS: ACETAMINOPHEN 325 MG TABLET (FP) PO PRN ×3 (07:03→20:56)
[2019-05-05 08:24] LABS: BASO % 0.3 % (0-2.0); EOS % 1.5 % (0-4.5); HEMATOCRIT 36.1 % (35.4-49); HEMOGLOBIN 11.8 GM/dL (11.7-16.9); LYMPH % 14.2 % (8-40); MCH 28.9 pg (25.7-33.7); MCHC 32.9 g/dl (32.0-35.9); MEAN CELL VOLUME 87.9 fl (80-96); MEAN PLT VOLUME 7.4 fl (7.5-11.1); MONO % 8.3 % (3.8-10.2); NEUT % 75.7 % (42.8-82.8); PLATELET COUNT 741 K/MM3 (134-434); RDW 14.1 % (11.9-15.9); WHITE BLOOD COUNT 13.7 K/mm3 (4.0-10.0)
[2019-05-05 08:52] LABS: ALBUMIN 2.6 g/dl (3.4-5.0); BILIRUBIN,TOTAL 0.4 mg/dL (0.2-1); BLOOD UREA NITROGEN 8.8 mg/dL (7-18); CALCIUM 9.1 mg/dL (8.5-10.1); CREATININE 0.6 mg/dL (0.55-1.3); POTASSIUM 4.3 mmol/L (3.5-5.1); TOT PROT 7.8 g/dl (6.4-8.2)
[2019-05-05] MEDS ORDERED: PT OWN MED DRAWER 7, Y5N ONE (09:30)
--- NOTE | 2019-05-05 10:42 | PATH ---
Cytology Non-Gynecological Report Patient Name: OSMAN ALEX Med. Rec. #: [id number] /Age/Gender: 2000 (Age: 19) / M Account: [id number] Location: [address] [place] [address]/[facility] Taken: 04/30/2019 Received: 05/03/2019 Reported: 05/05/2019 Physicians: Bin Maria M.D. Specimen(s) Received A: KIDNEY ABSCESS DRAINAGE, LEFT B: YOLIE DRAIN, LEFT, KIDNEY ABSCESS Clinical History Left kidney abscess Final Diagnosis A. KIDNEY ABSCESS DRAINAGE, LEFT, FOR CYTOLOGY: SATISFACTORY FOR EVALUATION. NO MALIGNANT CELLS IDENTIFIED. ACUTE INFLAMMATORY EXUDATE COMPRISED OF NUMEROUS NEUTROPHILS, MACROPHAGES, LYMPHOCYTES, AND CELLULAR DEBRIS, CONSISTENT WITH ABSCESS. B. YOLIE DRAIN, LEFT, KIDNEY ABSCESS, FOR CYTOLOGY: SATISFACTORY FOR EVALUATION. NO MALIGNANT CELLS IDENTIFIED. ACUTE INFLAMMATORY EXUDATE COMPRISED OF NUMEROUS NEUTROPHILS, MACROPHAGES, LYMPHOCYTES, AND CELLULAR DEBRIS, CONSISTENT WITH ABSCESS. Comment: Suggest clinical, radiologic, and microbiology studies correlation. Electronically Signed Liudmila Hoffman M.D. Gross Description A. Approximately 50 cc of bloody fluid received fixed in 50% alcohol. One cytofunnel prepared and Pap stained. One cellblock prepared. B. Approximately 5 cc of bloody thick fluid received fresh. One cytofunnel prepared and Pap stained. One cellblock prepared.
[2019-05-05] MEDS: DOCUSATE SODIUM 100 MG CAPSULE (FP) PO SCH (10:50)
[2019-05-05 11:04] LABS: ERYTHROCYTE SEDIMENTATION RATE 96 mm/hr (0-10)
[2019-05-05] MEDS: DAPTOMYCIN 450 MG in SODIUM CHLORIDE 50 ML IVPB SCH (11:05)
--- NOTE | 2019-05-05 11:55 | PN ---
Progress Note (short form) - Note Progress Note: drain replaced yesterday still with flank pain low grade fever good appetite Vital Signs Period Temp Pulse Resp BP Sys/Solano Pulse Ox Last 24 Hr 98.8 F-99.3 F 85-88 20-20 116-123/66-74 99 cor-rrr lungs decreased bs at bases abd soft,nt ext no edema no drainage in bag CBC, BMP 05/05/19 07:35 05/05/19 07:35 Microbiology 05/04/19 10:00 Blood - Peripheral Venous Blood Culture - Preliminary NO GROWTH OBTAINED AFTER 24 HOURS, INCUBATION TO CONTINUE FOR 4 DAYS. 05/04/19 10:15 Blood - Peripheral Venous Blood Culture - Preliminary NO GROWTH OBTAINED AFTER 24 HOURS, INCUBATION TO CONTINUE FOR 4 DAYS. 04/29/19 20:45 Blood - Peripheral Venous Blood Culture - Final NO GROWTH AFTER 5 DAYS INCUBATION 04/29/19 20:40 Blood - Peripheral Venous Blood Culture - Final NO GROWTH AFTER 5 DAYS INCUBATION 04/30/19 15:00 Abscess Gram Stain - Final 04/30/19 15:00 Abscess Body Fluid Culture - Final Mr S Aureus 04/30/19 15:00 Abscess Anaerobic Culture - Final NO ANAEROBES WERE ISOLATED 04/29/19 20:20 Urine - Urine Clean Catch Urine Culture - Final NO GROWTH OBTAINED a/p probable MRSA renal abscess- most likely from a transient bacteremia switched to daptomycin ysterday as vancomycin levels were subtherapeutic day #2 daptomycin drain was replaced/repositioned yesterday Problem List - Problems (1) Left renal mass Code(s): N28.89 - OTHER SPECIFIED DISORDERS OF KIDNEY AND URETER
--- NOTE | 2019-05-05 13:50 | PN ---
Progress Note, Physician History of Present Illness: Pt seen and examined at bedside. He is awake and alert. He denies shortness of breath. - Current Medication List Current Medications: Active Medications Acetaminophen (Tylenol -) 650 mg PO Q6H PRN PRN Reason: FEVER Last Admin: 05/05/19 07:03 Dose: 650 mg Docusate Sodium (Colace -) 100 mg PO DAILY [facility] Last Admin: 05/05/19 10:50 Dose: 100 mg Heparin Sodium (Porcine) (Heparin -) 5,000 unit SQ TID TYSON Last Admin: 05/05/19 07:01 Dose: 5,000 unit Sodium Chloride (Normal Saline -) 1,000 mls @ 100 mls/hr IV ASDIR TYSON Last Admin: 05/05/19 01:39 Dose: 100 mls/hr Daptomycin 450 mg/ Sodium (Chloride) 50 mls @ 50 mls/hr IVPB DAILY [facility]; Protocol Last Admin: 05/05/19 11:05 Dose: 50 mls/hr Oxycodone HCl (Roxicodone -) 5 mg PO Q8H PRN PRN Reason: PAIN LEVEL 7 - 10 Last Admin: 05/05/19 07:03 Dose: 5 mg - Objective Vital Signs: Vital Signs Temperature 98.8 F 05/05/19 06:00 Pulse Rate 85 05/05/19 06:00 Respiratory Rate 20 05/05/19 09:00 Blood Pressure 116/66 05/05/19 06:00 O2 Sat by Pulse Oximetry (%) 99 05/05/19 09:00 Constitutional: Yes: Calm Eyes: Yes: Conjunctiva Clear HENT: Yes: Atraumatic Cardiovascular: Yes: S1, S2 Respiratory: Yes: CTA Bilaterally Gastrointestinal: Yes: Normal Bowel Sounds, Soft Genitourinary: Yes: Other (drain in place) Neurological: Yes: Oriented Psychiatric: Yes: Oriented Labs: CBC, BMP 05/05/19 07:35 05/05/19 07:35 INR, PTT INR 1.64 (0.83-1.09) H 04/30/19 06:45 Problem List - Problems (1) Murmur Code(s): R01.1 - CARDIAC MURMUR, UNSPECIFIED (2) Flank pain, acute Code(s): R10.9 - UNSPECIFIED ABDOMINAL PAIN (3) Left renal mass Code(s): N28.89 - OTHER SPECIFIED DISORDERS OF KIDNEY AND URETER Assessment/Plan Current Medications Generic Name Dose Route Start Last Admin Trade Name Freq PRN Reason Stop Dose Admin Acetaminophen 650 mg 05/02/19 06:44 05/05/19 07:03 Tylenol - PO 650 mg Q6H PRN Administration FEVER Docusate Sodium 100 mg 05/04/19 10:00 05/05/19 10:50 Colace - PO 100 mg DAILY TYSON Administration Heparin Sodium (Porcine) 5,000 unit 05/01/19 14:00 05/05/19 07:01 Heparin - SQ 5,000 unit TID TYSON Administration Sodium Chloride 1,000 mls @ 100 mls/hr 04/30/19 01:15 05/05/19 01:39 Normal Saline - IV 100 mls/hr ASDIR TYSON Administration Daptomycin 450 mg/ Sodium 50 mls @ 50 mls/hr 05/04/19 11:00 05/05/19 11:05 Chloride IVPB 50 mls/hr DAILY TYSON Administration Protocol Oxycodone HCl 5 mg 05/03/19 17:50 05/05/19 07:03 Roxicodone - PO 5 mg Q8H PRN Administration PAIN LEVEL 7 - 10 Impression 1. renal abscess vs mass 2. recent uti 3. heart murmur Plan - cont abx per medical team - renal function is stable - pain control - urology follow up - will follow PRN
--- NOTE | 2019-05-05 16:39 | PN ---
Physical Exam: SUBJECTIVE: Patient seen and examined at the bedside. There were no acute events overnight, patient's pal drain draining small amount of serosanguenous fluid. OBJECTIVE: Vital Signs Period Temp Pulse Resp BP Sys/Solano Pulse Ox Last 24 Hr 98.8 F-99.4 F 85-88 20-20 116-123/66-74 99-99 GENERAL: The patient is awake, alert, and fully oriented, in no acute distress, HEAD: Normal with no signs of trauma. EYES: PERRL, extraocular movements intact, sclera anicteric, conjunctiva clear. No ptosis. ENT: Ears normal, nares patent, oropharynx clear without exudates, moist mucous membranes. NECK: Trachea midline, full range of motion, supple. LUNGS: Breath sounds equal, clear to auscultation bilaterally, no wheezes, no crackles, no accessory muscle use. HEART: Regular rate and rhythm, S1, S2, diastolic murmur heard at LLSB. ABDOMEN: Soft, no tenderness to palpation, nondistended, normoactive bowel sounds, no guarding, no rebound, no CVA tenderness, L side drain draining clear slightly milky fluid but almost nothing present in drain (patiet reported it was last changed last night). EXTREMITIES: 2+ pulses, warm, well-perfused, no edema. NEUROLOGICAL: Cranial nerves II through XII grossly intact. Normal speech, gait not observed. PSYCH: agitated mood SKIN: Warm, dry, normal turgor, no rashes or lesions noted Laboratory Results - last 24 hr 05/02/19 05/05/19 05/05/19 06:25 07:35 07:35 WBC RBC Hgb Hct MCV MCH MCHC RDW Plt Count MPV Absolute Neuts (auto) Neutrophils % Lymphocytes % Monocytes % Eosinophils % Basophils % Nucleated RBC % ESR Sodium 135 L Potassium 4.3 Chloride 101 Carbon Dioxide 25 Anion Gap 8 BUN 8.8 Creatinine 0.6 Est GFR (CKD-EPI)AfAm 166.58 Est GFR (CKD-EPI)NonAf 143.72 Random Glucose 77 Calcium 9.1 Total Bilirubin 0.4 AST 20 ALT 9 L Alkaline Phosphatase 133 H Creatine Kinase 82 C-Reactive Protein 12.9 H Total Protein 7.8 Total Protein (PEP) 6.5 Albumin 2.6 L Albumin (PEP) 2.6 L Globulin 3.9 Albumin/Globulin Ratio 0.7 Beta Globulins 1.0 SIMÓN M-Josias Not observed 05/05/19 07:35 WBC 13.7 H RBC 4.10 Hgb 11.8 Hct 36.1 MCV 87.9 MCH 28.9 MCHC 32.9 RDW 14.1 Plt Count 741 H MPV 7.4 L Absolute Neuts (auto) 10.4 H Neutrophils % 75.7 Lymphocytes % 14.2 Monocytes % 8.3 Eosinophils % 1.5 Basophils % 0.3 Nucleated RBC % 0 ESR 96 H Sodium Potassium Chloride Carbon Dioxide Anion Gap BUN Creatinine Est GFR (CKD-EPI)AfAm Est GFR (CKD-EPI)NonAf Random Glucose Calcium Total Bilirubin AST ALT Alkaline Phosphatase Creatine Kinase C-Reactive Protein Total Protein Total Protein (PEP) Albumin Albumin (PEP) Globulin Albumin/Globulin Ratio Beta Globulins SIMÓN M-Josias Active Medications Generic Name Dose Route Start Last Admin Trade Name Freq PRN Reason Stop Dose Admin Acetaminophen 650 mg 05/02/19 06:44 05/05/19 14:22 Tylenol - PO 650 mg Q6H PRN Administration FEVER Docusate Sodium 100 mg 05/04/19 10:00 05/05/19 10:50 Colace - PO 100 mg DAILY TYSON Administration Heparin Sodium (Porcine) 5,000 unit 05/01/19 14:00 05/05/19 15:52 Heparin - SQ 5,000 unit TID TYSON Administration Sodium Chloride 1,000 mls @ 100 mls/hr 04/30/19 01:15 05/05/19 01:39 Normal Saline - IV 100 mls/hr ASDIR TYSON Administration Daptomycin 450 mg/ Sodium 50 mls @ 50 mls/hr 05/04/19 11:00 05/05/19 11:05 Chloride IVPB 50 mls/hr DAILY TYSON Administration Protocol Oxycodone HCl 5 mg 05/03/19 17:50 05/05/19 15:49 Roxicodone - PO 5 mg Q8H PRN Administration PAIN LEVEL 7 - 10 Imaging: CT Abd&pelvis w/contrast: There is a 6x6.5x6.9cm complex infiltrative heterogeneous hypovascular mass, possibly multiloculated, in the superior pole of the left kidney. Renal cell carcinoma can have this appearance. There is no clear well-defined peripherally enhancing wall with central fluid cavity to suggest an abscess on the current examination. There is no clear evidence of pyelonephritis in the remaining portions of the left kidney. The left adrenal gland is not clearly identified due to the medial extension of the mass. Right kidney appears normal. CXR - negative for acute pathology ASSESSMENT/PLAN: 19 y/o/m with no PMHx here for abdominal pain, patient told he has a renal abscess at [facility] but signed out AMA and came here. 1- Sepsis most likely 2/2 MRSA renal abscess- most likely from a transient bacteremia, patient still with low grade fevers overnight. - s/p IR drainage and PAL drain placement and re-adjustment yesterday (05/04) - cytology from drainage pending - continue with dapto per ID, day 2 - paraprotein gap elevated. F/U SPEP/UPEP -pain control with ofirmev and oxycodone - ID following, appreciate recommendations - records obtained from [facility], blood cx with no growth for 48h, abdominal CT per their report showing complicated abcess, HIV-1 AB EIA reactive however repeat 4th gen HIV Ag/Ab non-reactive. Copy can be found in patient's paper chart. 2- Thrombocytosis - reactive - trend with cbcs 3)FEN NS @100mls/hr 4)Prophylaxis -SCDs and heparin sq 5)Disposition -admitted to Med/Surg, will discuss with ID tomorrow about when patient would be eligible for picc line to resume his extended course of antibiotics. Visit type - Emergency Visit Emergency Visit: Yes ED Registration Date: 04/29/19 Care time: The patient presented to the Emergency Department on the above date and was hospitalized for further evaluation of their emergent condition. - New Patient This patient is new to me today: No - Critical Care Critical Care patient: No - Discharge Referral Referred to [facility] Med P.C.: No ATTENDING PHYSICIAN STATEMENT I saw and evaluated the patient. I reviewed the resident's note and discussed the case with the resident. I agree with the resident's findings and plan as documented. SUBJECTIVE: OBJECTIVE: ASSESSMENT AND PLAN:
--- NOTE | 2019-05-05 21:07 | PN ---
Teaching Attending Note Name of Resident: Gracie Harden ATTENDING PHYSICIAN STATEMENT I saw and evaluated the patient. I reviewed the resident's note and discussed the case with the resident. I agree with the resident's findings and plan as documented. SUBJECTIVE: Patient is feeling better , no fever or chills. OBJECTIVE: Vital Signs Temperature 98.4 F 05/05/19 18:00 Pulse Rate 79 05/05/19 18:00 Respiratory Rate 20 05/05/19 18:00 Blood Pressure 109/87 05/05/19 18:00 O2 Sat by Pulse Oximetry (%) 99 05/05/19 09:00 GENERAL: The patient is awake, alert, and fully oriented, in no acute distress. HEAD: Normal with no signs of trauma. EYES: PERRL, extraocular movements intact, sclera anicteric, conjunctiva clear. ENT: Ears normal, oropharynx clear without exudates, moist mucous membranes. NECK: Trachea midline, full range of motion, supple. LUNGS: Breath sounds equal, clear to auscultation bilaterally, no wheezes, no crackles, no accessory muscle use. HEART: Regular rate and rhythm, S1, S2 without murmur, rub or gallop. ABDOMEN: Soft, NT,ND, normoactive bowel sounds, no guarding, no rebound, no hepatosplenomegaly, no masses. positive for drainage EXTREMITIES: 2+ pulses, warm, well-perfused, no edema. NEUROLOGICAL: Cranial nerves II through XII grossly intact. Normal speech, gait not observed. PSYCH: Normal mood, normal affect. SKIN: Warm, dry, normal turgor, no rashes or lesions noted CBCD WBC 13.7 K/mm3 (4.0-10.0) H 05/05/19 07:35 RBC 4.10 M/mm3 (4.00-5.60) 05/05/19 07:35 Hgb 11.8 GM/dL (11.7-16.9) 05/05/19 07:35 Hct 36.1 % (35.4-49) 05/05/19 07:35 MCV 87.9 fl (80-96) 05/05/19 07:35 MCHC 32.9 g/dl (32.0-35.9) 05/05/19 07:35 RDW 14.1 % (11.9-15.9) 05/05/19 07:35 Plt Count 741 K/MM3 (134-434) H 05/05/19 07:35 MPV 7.4 fl (7.5-11.1) L 05/05/19 07:35 CMP Sodium 135 mmol/L (136-145) L 05/05/19 07:35 Potassium 4.3 mmol/L (3.5-5.1) 05/05/19 07:35 Chloride 101 mmol/L (98-107) 05/05/19 07:35 Carbon Dioxide 25 mmol/L (21-32) 05/05/19 07:35 Anion Gap 8 MMOL/L (8-16) 05/05/19 07:35 BUN 8.8 mg/dL (7-18) 05/05/19 07:35 Creatinine 0.6 mg/dL (0.55-1.3) 05/05/19 07:35 Random Glucose 77 mg/dL (74-106) 05/05/19 07:35 Calcium 9.1 mg/dL (8.5-10.1) 05/05/19 07:35 Total Bilirubin 0.4 mg/dL (0.2-1) 05/05/19 07:35 AST 20 U/L (15-37) 05/05/19 07:35 ALT 9 U/L (13-61) L 05/05/19 07:35 Alkaline Phosphatase 133 U/L (45-117) H 05/05/19 07:35 Total Protein 7.8 g/dl (6.4-8.2) 05/05/19 07:35 Albumin 2.6 g/dl (3.4-5.0) L 05/05/19 07:35 CARDIAC ENZYMES Creatine Kinase 82 U/L (26-308) 05/05/19 07:35 Current Medications Generic Name Dose Route Start Last Admin Trade Name Freq PRN Reason Stop Dose Admin Acetaminophen 650 mg 05/02/19 06:44 05/05/19 20:56 Tylenol - PO 650 mg Q6H PRN Administration FEVER Docusate Sodium 100 mg 05/04/19 10:00 05/05/19 10:50 Colace - PO 100 mg DAILY [facility] Administration Heparin Sodium (Porcine) 5,000 unit 05/01/19 14:00 05/05/19 20:59 Heparin - SQ 5,000 unit TID [facility] Administration Sodium Chloride 1,000 mls @ 100 mls/hr 04/30/19 01:15 05/05/19 01:39 Normal Saline - IV 100 mls/hr ASDIR T[facility] Administration Daptomycin 450 mg/ Sodium 50 mls @ 50 mls/hr 05/04/19 11:00 05/05/19 11:05 Chloride IVPB 50 mls/hr DAILY [facility] Administration Protocol Oxycodone HCl 5 mg 05/03/19 17:50 05/05/19 15:49 Roxicodone - PO 5 mg Q8H PRN Administration PAIN LEVEL 7 - 10 Home Medications Medication Instructions Recorded NK [No Known Home Medication] 04/29/19 Microbiology 05/04/19 10:00 Blood - Peripheral Venous Blood Culture - Preliminary NO GROWTH OBTAINED AFTER 48 HOURS, INCUBATION TO CONTINUE FOR 3 DAYS. 05/04/19 10:15 Blood - Peripheral Venous Blood Culture - Preliminary NO GROWTH OBTAINED AFTER 48 HOURS, INCUBATION TO CONTINUE FOR 3 DAYS. 04/29/19 20:45 Blood - Peripheral Venous Blood Culture - Final NO GROWTH AFTER 5 DAYS INCUBATION 04/29/19 20:40 Blood - Peripheral Venous Blood Culture - Final NO GROWTH AFTER 5 DAYS INCUBATION 04/30/19 15:00 Abscess Gram Stain - Final 04/30/19 15:00 Abscess Body Fluid Culture - Final Mr S Aureus 04/30/19 15:00 Abscess Anaerobic Culture - Final NO ANAEROBES WERE ISOLATED 04/29/19 20:20 Urine - Urine Clean Catch Urine Culture - Final NO GROWTH OBTAINED ASSESSMENT AND PLAN: Patient is a 19y/o male presented with L renal infection /abscess in [facility] 2 days ago, who presented to [facility] after leaving [place] . 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 vanco trough, follow HIV testing , paraprotein gap elevated. SPEP/UPEP #Thrombocytosis: reactive. will monitor . will need to be repeat after dc and after infection resolves DVT: SCDs , and heparin SQ
[2019-05-06] MEDS: HEPARIN NA (PORCINE) 5,000 UNITS/ML 1ML VIAL SQ SCH ×3 (06:29→23:40)
[2019-05-06] MEDS: SODIUM CHLORIDE 1,000 ML IV SCH ×2 (06:29→09:53)
[2019-05-06 08:51] LABS: BASO % 0.4 % (0-2.0); EOS % 1.4 % (0-4.5); HEMATOCRIT 35.1 % (35.4-49); HEMOGLOBIN 11.7 GM/dL (11.7-16.9); LYMPH % 12.6 % (8-40); MCH 29.2 pg (25.7-33.7); MCHC 33.2 g/dl (32.0-35.9); MEAN CELL VOLUME 87.8 fl (80-96); MEAN PLT VOLUME 7.3 fl (7.5-11.1); MONO % 6.5 % (3.8-10.2); NEUT % 79.1 % (42.8-82.8); PLATELET COUNT 760 K/MM3 (134-434); RDW 14.3 % (11.9-15.9); WHITE BLOOD COUNT 13.7 K/mm3 (4.0-10.0)
[2019-05-06 09:18] LABS: ALBUMIN 2.6 g/dl (3.4-5.0); BILIRUBIN,TOTAL 0.3 mg/dL (0.2-1); BLOOD UREA NITROGEN 7.9 mg/dL (7-18); CREATININE 0.6 mg/dL (0.55-1.3); POTASSIUM 4.2 mmol/L (3.5-5.1); TOT PROT 7.6 g/dl (6.4-8.2)
[2019-05-06] MEDS: DOCUSATE SODIUM 100 MG CAPSULE (FP) PO SCH (09:54)
[2019-05-06] MEDS: DAPTOMYCIN 450 MG in SODIUM CHLORIDE 50 ML IVPB SCH (09:54)
[2019-05-06] MEDS: oxyCODONE HCL 5 MG TABLET PO PRN ×2 (12:36→23:40)
[2019-05-06] MEDS ORDERED: SODIUM CHLORIDE 1,000 ML IV SCH (16:54)
--- NOTE | 2019-05-06 16:54 | PN ---
Progress Note, Physician History of Present Illness: Pt seen and examined at bedside. He feels well. His drain was removed. - Current Medication List Current Medications: Active Medications Acetaminophen (Tylenol -) 650 mg PO Q6H PRN PRN Reason: FEVER Last Admin: 05/05/19 20:56 Dose: 650 mg Docusate Sodium (Colace -) 100 mg PO DAILY [facility] Last Admin: 05/06/19 09:54 Dose: Not Given Heparin Sodium (Porcine) (Heparin -) 5,000 unit SQ TID [facility] Last Admin: 05/06/19 15:04 Dose: 5,000 unit Sodium Chloride (Normal Saline -) 1,000 mls @ 100 mls/hr IV ASDIR TYSON Last Admin: 05/06/19 09:53 Dose: 100 mls/hr Daptomycin 450 mg/ Sodium (Chloride) 50 mls @ 50 mls/hr IVPB DAILY [facility]; Protocol Last Admin: 05/06/19 09:54 Dose: 50 mls/hr Oxycodone HCl (Roxicodone -) 5 mg PO Q8H PRN PRN Reason: PAIN LEVEL 7 - 10 Last Admin: 05/06/19 12:36 Dose: 5 mg - Objective Vital Signs: Vital Signs Temperature 98.7 F 05/06/19 14:35 Pulse Rate 99 H 05/06/19 14:35 Respiratory Rate 20 05/06/19 14:35 Blood Pressure 124/71 05/06/19 14:35 O2 Sat by Pulse Oximetry (%) 99 05/05/19 21:00 Constitutional: Yes: Calm Eyes: Yes: Conjunctiva Clear HENT: Yes: Atraumatic Neck: Yes: Supple Cardiovascular: Yes: S1, S2 Respiratory: Yes: CTA Bilaterally Gastrointestinal: Yes: Normal Bowel Sounds, Soft Genitourinary: Yes: WNL Musculoskeletal: Yes: WNL Extremities: Yes: WNL Edema: No Neurological: Yes: Oriented Psychiatric: Yes: Oriented Labs: CBC, BMP 05/06/19 08:15 05/06/19 08:15 INR, PTT INR 1.64 (0.83-1.09) H 04/30/19 06:45 Problem List - Problems (1) Murmur Code(s): R01.1 - CARDIAC MURMUR, UNSPECIFIED (2) Flank pain, acute Code(s): R10.9 - UNSPECIFIED ABDOMINAL PAIN (3) Left renal mass Code(s): N28.89 - OTHER SPECIFIED DISORDERS OF KIDNEY AND URETER Assessment/Plan Current Medications Generic Name Dose Route Start Last Admin Trade Name Yuliet PRN Reason Stop Dose Admin Acetaminophen 650 mg 05/02/19 06:44 05/05/19 20:56 Tylenol - PO 650 mg Q6H PRN Administration FEVER Docusate Sodium 100 mg 05/04/19 10:00 05/06/19 09:54 Colace - PO Not Given DAILY [facility] Heparin Sodium (Porcine) 5,000 unit 05/01/19 14:00 05/06/19 15:04 Heparin - SQ 5,000 unit TID [facility] Administration Sodium Chloride 1,000 mls @ 100 mls/hr 04/30/19 01:15 05/06/19 09:53 Normal Saline - IV 100 mls/hr ASDIR TYSON Administration Daptomycin 450 mg/ Sodium 50 mls @ 50 mls/hr 05/04/19 11:00 05/06/19 09:54 Chloride IVPB 50 mls/hr DAILY [facility] Administration Protocol Oxycodone HCl 5 mg 05/03/19 17:50 05/06/19 12:36 Roxicodone - PO 5 mg Q8H PRN Administration PAIN LEVEL 7 - 10 Impression 1. renal abscess vs mass 2. recent uti 3. heart murmur Plan - can decrease rate of fluids - drain removed - cont abx - pain control
--- NOTE | 2019-05-06 17:08 | PN ---
Physical Exam: SUBJECTIVE: Patient seen and examined at the bedside, patient appears well with no acute complaints. States pain is minimal/ improving. OBJECTIVE: Vital Signs Period Temp Pulse Resp BP Sys/Solano Pulse Ox Last 24 Hr 98.3 F-98.7 F 79-99 20-20 109-124/64-87 99 GENERAL: The patient is awake, alert, and fully oriented, in no acute distress, HEAD: Normal with no signs of trauma. EYES: PERRL, extraocular movements intact, sclera anicteric, conjunctiva clear. No ptosis. ENT: Ears normal, nares patent, oropharynx clear without exudates, moist mucous membranes. NECK: Trachea midline, full range of motion, supple. LUNGS: Breath sounds equal, clear to auscultation bilaterally, no wheezes, no crackles, no accessory muscle use. HEART: Regular rate and rhythm, S1, S2, diastolic murmur heard at LLSB. ABDOMEN: Soft, no tenderness to palpation, nondistended, normoactive bowel sounds, no guarding, no rebound, no CVA tenderness, drain removed this afternoon. EXTREMITIES: 2+ pulses, warm, well-perfused, no edema. NEUROLOGICAL: Cranial nerves II through XII grossly intact. Normal speech, gait not observed. PSYCH: agitated mood SKIN: Warm, dry, normal turgor, no rashes or lesions noted Laboratory Results - last 24 hr 05/06/19 05/06/19 08:15 08:15 WBC 13.7 H RBC 4.00 Hgb 11.7 Hct 35.1 L MCV 87.8 MCH 29.2 MCHC 33.2 RDW 14.3 Plt Count 760 H MPV 7.3 L Absolute Neuts (auto) 10.8 H Neutrophils % 79.1 Lymphocytes % 12.6 Monocytes % 6.5 Eosinophils % 1.4 Basophils % 0.4 Nucleated RBC % 0 Sodium 136 Potassium 4.2 Chloride 103 Carbon Dioxide 26 Anion Gap 7 L BUN 7.9 Creatinine 0.6 Est GFR (CKD-EPI)AfAm 166.58 Est GFR (CKD-EPI)NonAf 143.72 Random Glucose 77 Calcium 9.0 Total Bilirubin 0.3 AST 14 L ALT 8 L Alkaline Phosphatase 132 H Total Protein 7.6 Albumin 2.6 L Active Medications Generic Name Dose Route Start Last Admin Trade Name Freq PRN Reason Stop Dose Admin Acetaminophen 650 mg 05/02/19 06:44 05/05/19 20:56 Tylenol - PO 650 mg Q6H PRN Administration FEVER Docusate Sodium 100 mg 05/04/19 10:00 05/06/19 09:54 Colace - PO Not Given DAILY [facility] Heparin Sodium (Porcine) 5,000 unit 05/01/19 14:00 05/06/19 15:04 Heparin - SQ 5,000 unit TID [facility] Administration Daptomycin 450 mg/ Sodium 50 mls @ 50 mls/hr 05/04/19 11:00 05/06/19 09:54 Chloride IVPB 50 mls/hr DAILY [facility] Administration Protocol Sodium Chloride 1,000 mls @ 75 mls/hr 05/06/19 16:54 Normal Saline - IV ASDIR TYSON Oxycodone HCl 5 mg 05/03/19 17:50 05/06/19 12:36 Roxicodone - PO 5 mg Q8H PRN Administration PAIN LEVEL 7 - 10 Imaging: CT Abd&pelvis w/contrast: There is a 6x6.5x6.9cm complex infiltrative heterogeneous hypovascular mass, possibly multiloculated, in the superior pole of the left kidney. Renal cell carcinoma can have this appearance. There is no clear well-defined peripherally enhancing wall with central fluid cavity to suggest an abscess on the current examination. There is no clear evidence of pyelonephritis in the remaining portions of the left kidney. The left adrenal gland is not clearly identified due to the medial extension of the mass. Right kidney appears normal. CXR - negative for acute pathology ASSESSMENT/PLAN: 19 y/o/m with no PMHx here for abdominal pain, patient told he has a renal abscess at [facility] but signed out AMA and came here. 1- Sepsis most likely 2/2 MRSA renal abscess- most likely from a transient bacteremia, patient still with low grade fevers overnight. - s/p IR drainage and YOLIE drain placement and re-adjustment yesterday (05/04) - cytology from drainage pending - continue with dapto per ID, day 3 -pain control with ofirmev and oxycodone - ID following, appreciate recommendations, will continue to observe inpatient, likely over the weekend as patient was not on therapeutic dose of antibiotics until 3 days ago - Per IR substance in renal abcess likely phlegmon and may be why there is not much drainage. Drain removed this afternoon. - records obtained from [facility], blood cx with no growth for 48h, abdominal CT per their report showing complicated abcess, HIV-1 AB EIA reactive however repeat 4th gen HIV Ag/Ab non-reactive. Copy can be found in patient's paper chart. 2- Thrombocytosis - reactive - trend with cbcs 3)FEN NS @100mls/hr 4)Prophylaxis -SCDs and heparin sq 5)Disposition -admitted to Med/Surg, will require picc line for extended course of IV antibiotics. Visit type - Emergency Visit Emergency Visit: Yes ED Registration Date: 04/29/19 Care time: The patient presented to the Emergency Department on the above date and was hospitalized for further evaluation of their emergent condition. - New Patient This patient is new to me today: No - Critical Care Critical Care patient: No - Discharge Referral Referred to [facility] Med P.C.: No ATTENDING PHYSICIAN STATEMENT I saw and evaluated the patient. I reviewed the resident's note and discussed the case with the resident. I agree with the resident's findings and plan as documented. SUBJECTIVE: OBJECTIVE: ASSESSMENT AND PLAN:
[2019-05-06] MEDS: ACETAMINOPHEN 325 MG TABLET (FP) PO PRN (18:06)
--- NOTE | 2019-05-06 21:21 | PN ---
Teaching Attending Note Name of Resident: Gracie Harden ATTENDING PHYSICIAN STATEMENT I saw and evaluated the patient. I reviewed the resident's note and discussed the case with the resident. I agree with the resident's findings and plan as documented. SUBJECTIVE: Patient is comfortable with no acute distress. patient wants to go home. OBJECTIVE: Vital Signs Temperature 98.7 F 05/06/19 21:00 Pulse Rate 72 05/06/19 21:00 Respiratory Rate 18 05/06/19 21:00 Blood Pressure 123/61 05/06/19 21:00 O2 Sat by Pulse Oximetry (%) 99 05/06/19 09:00 GENERAL: The patient is awake, alert, and fully oriented, in no acute distress. HEAD: Normal with no signs of trauma. EYES: PERRL, extraocular movements intact, sclera anicteric, conjunctiva clear. ENT: Ears normal, oropharynx clear without exudates, moist mucous membranes. NECK: Trachea midline, full range of motion, supple. LUNGS: Breath sounds equal, clear to auscultation bilaterally, no wheezes, no crackles, no accessory muscle use. HEART: Regular rate and rhythm, S1, S2 without murmur, rub or gallop. ABDOMEN: Soft, NT,ND, normoactive bowel sounds, no guarding, no rebound, no hepatosplenomegaly, no masses. positive for drainage EXTREMITIES: 2+ pulses, warm, well-perfused, no edema. NEUROLOGICAL: Cranial nerves II through XII grossly intact. Normal speech, gait not observed. PSYCH: Normal mood, normal affect. SKIN: Warm, dry, normal turgor, no rashes or lesions noted CBCD WBC 13.7 K/mm3 (4.0-10.0) H 05/06/19 08:15 RBC 4.00 M/mm3 (4.00-5.60) 05/06/19 08:15 Hgb 11.7 GM/dL (11.7-16.9) 05/06/19 08:15 Hct 35.1 % (35.4-49) L 05/06/19 08:15 MCV 87.8 fl (80-96) 05/06/19 08:15 MCHC 33.2 g/dl (32.0-35.9) 05/06/19 08:15 RDW 14.3 % (11.9-15.9) 05/06/19 08:15 Plt Count 760 K/MM3 (134-434) H 05/06/19 08:15 MPV 7.3 fl (7.5-11.1) L 05/06/19 08:15 CMP Sodium 136 mmol/L (136-145) 05/06/19 08:15 Potassium 4.2 mmol/L (3.5-5.1) 05/06/19 08:15 Chloride 103 mmol/L (98-107) 05/06/19 08:15 Carbon Dioxide 26 mmol/L (21-32) 05/06/19 08:15 Anion Gap 7 MMOL/L (8-16) L 05/06/19 08:15 BUN 7.9 mg/dL (7-18) 05/06/19 08:15 Creatinine 0.6 mg/dL (0.55-1.3) 05/06/19 08:15 Random Glucose 77 mg/dL (74-106) 05/06/19 08:15 Calcium 9.0 mg/dL (8.5-10.1) 05/06/19 08:15 Total Bilirubin 0.3 mg/dL (0.2-1) 05/06/19 08:15 AST 14 U/L (15-37) L 05/06/19 08:15 ALT 8 U/L (13-61) L 05/06/19 08:15 Alkaline Phosphatase 132 U/L (45-117) H 05/06/19 08:15 Total Protein 7.6 g/dl (6.4-8.2) 05/06/19 08:15 Albumin 2.6 g/dl (3.4-5.0) L 05/06/19 08:15 CARDIAC ENZYMES Creatine Kinase 82 U/L (26-308) 05/05/19 07:35 Current Medications Generic Name Dose Route Start Last Admin Trade Name Freq PRN Reason Stop Dose Admin Acetaminophen 650 mg 05/02/19 06:44 05/06/19 18:06 Tylenol - PO 650 mg Q6H PRN Administration FEVER Docusate Sodium 100 mg 05/04/19 10:00 05/06/19 09:54 Colace - PO Not Given DAILY [facility] Heparin Sodium (Porcine) 5,000 unit 05/01/19 14:00 05/06/19 15:04 Heparin - SQ 5,000 unit TID T[facility]ON Administration Daptomycin 450 mg/ Sodium 50 mls @ 50 mls/hr 05/04/19 11:00 05/06/19 09:54 Chloride IVPB 50 mls/hr DAILY [facility] Administration Protocol Sodium Chloride 1,000 mls @ 75 mls/hr 05/06/19 16:54 05/06/19 18:02 Normal Saline - IV 75 mls/hr ASDIR TYSON Administration Oxycodone HCl 5 mg 05/03/19 17:50 05/06/19 12:36 Roxicodone - PO 5 mg Q8H PRN Administration PAIN LEVEL 7 - 10 Home Medications Medication Instructions Recorded NK [No Known Home Medication] 04/29/19 Microbiology 05/04/19 10:00 Blood - Peripheral Venous Blood Culture - Preliminary NO GROWTH OBTAINED AFTER 48 HOURS, INCUBATION TO CONTINUE FOR 3 DAYS. 05/04/19 10:15 Blood - Peripheral Venous Blood Culture - Preliminary NO GROWTH OBTAINED AFTER 48 HOURS, INCUBATION TO CONTINUE FOR 3 DAYS. 04/29/19 20:45 Blood - Peripheral Venous Blood Culture - Final NO GROWTH AFTER 5 DAYS INCUBATION 04/29/19 20:40 Blood - Peripheral Venous Blood Culture - Final NO GROWTH AFTER 5 DAYS INCUBATION 04/30/19 15:00 Abscess Gram Stain - Final 04/30/19 15:00 Abscess Body Fluid Culture - Final Mr S Aureus 04/30/19 15:00 Abscess Anaerobic Culture - Final NO ANAEROBES WERE ISOLATED 04/29/19 20:20 Urine - Urine Clean Catch Urine Culture - Final NO GROWTH OBTAINED ASSESSMENT AND PLAN: Patient is a 19y/o male presented with L renal infection /abscess in [facility] 2 days ago, who presented to [facility] after leaving [place] . # Left renal MRSA abscess s/p IR drainage with a YOLIE drain placement, cytology from drainage pending , continue Daptomycin as per ID , dc vanc and zosyn as per ID. follow HIV testing , paraprotein gap elevated., follow SPEP/UPEP #Thrombocytosis: elevated will continue to monitor . will need to be repeat after dc and after infection resolves DVT: SCDs ,and heparin SQ
[2019-05-07] MEDS: HEPARIN NA (PORCINE) 5,000 UNITS/ML 1ML VIAL SQ SCH ×3 (06:41→22:15)
[2019-05-07 09:06] LABS: BASO % 0.4 % (0-2.0); EOS % 0.9 % (0-4.5); HEMATOCRIT 36.7 % (35.4-49); HEMOGLOBIN 12.4 GM/dL (11.7-16.9); LYMPH % 14.6 % (8-40); MCH 29.5 pg (25.7-33.7); MCHC 33.7 g/dl (32.0-35.9); MEAN CELL VOLUME 87.6 fl (80-96); MEAN PLT VOLUME 7.2 fl (7.5-11.1); MONO % 6.2 % (3.8-10.2); NEUT % 77.9 % (42.8-82.8); PLATELET COUNT 811 K/MM3 (134-434); RBC 4.19 M/mm3 (4.00-5.60); RDW 14.5 % (11.9-15.9); WHITE BLOOD COUNT 13.4 K/mm3 (4.0-10.0)
[2019-05-07 09:26] LABS: ALBUMIN 2.8 g/dl (3.4-5.0); BILIRUBIN,TOTAL 0.3 mg/dL (0.2-1); BLOOD UREA NITROGEN 10.2 mg/dL (7-18); CALCIUM 9.5 mg/dL (8.5-10.1); CREATININE 0.6 mg/dL (0.55-1.3); POTASSIUM 4.9 mmol/L (3.5-5.1); TOT PROT 8.3 g/dl (6.4-8.2)
[2019-05-07] MEDS: DOCUSATE SODIUM 100 MG CAPSULE (FP) PO SCH (10:47)
[2019-05-07] MEDS: DAPTOMYCIN 450 MG in SODIUM CHLORIDE 50 ML IVPB SCH (12:55)
--- NOTE | 2019-05-07 14:55 | PN ---
Progress Note, Physician History of Present Illness: Pt seen and examined at bedside. He denies fevers or chills. - Current Medication List Current Medications: Active Medications Acetaminophen (Tylenol -) 650 mg PO Q6H PRN PRN Reason: FEVER Last Admin: 05/06/19 18:06 Dose: 650 mg Docusate Sodium (Colace -) 100 mg PO DAILY [facility] Last Admin: 05/07/19 10:47 Dose: 100 mg Heparin Sodium (Porcine) (Heparin -) 5,000 unit SQ TID T[facility]ON Last Admin: 05/07/19 13:51 Dose: 5,000 unit Daptomycin 450 mg/ Sodium (Chloride) 50 mls @ 50 mls/hr IVPB DAILY [facility]; Protocol Last Admin: 05/07/19 12:55 Dose: 50 mls/hr Sodium Chloride (Normal Saline -) 1,000 mls @ 75 mls/hr IV ASDIR [facility] Last Admin: 05/06/19 18:02 Dose: 75 mls/hr Oxycodone HCl (Roxicodone -) 5 mg PO Q8H PRN PRN Reason: PAIN LEVEL 7 - 10 Last Admin: 05/06/19 23:40 Dose: 5 mg - Objective Vital Signs: Vital Signs Temperature 99.4 F 05/07/19 10:00 Pulse Rate 87 05/07/19 10:00 Respiratory Rate 20 05/07/19 10:00 Blood Pressure 111/74 05/07/19 10:00 O2 Sat by Pulse Oximetry (%) 99 05/07/19 09:00 Constitutional: Yes: Calm Eyes: Yes: Conjunctiva Clear HENT: Yes: Atraumatic Neck: Yes: Supple Cardiovascular: Yes: S1, S2 Respiratory: Yes: CTA Bilaterally Gastrointestinal: Yes: Soft Genitourinary: Yes: Other (left drain in place, clamped) Musculoskeletal: Yes: WNL Extremities: Yes: WNL Edema: No Integumentary: Yes: Tattoos Neurological: Yes: Oriented Psychiatric: Yes: Oriented Labs: CBC, BMP 05/07/19 08:20 05/07/19 08:20 INR, PTT INR 1.64 (0.83-1.09) H 04/30/19 06:45 Problem List - Problems (1) Murmur Code(s): R01.1 - CARDIAC MURMUR, UNSPECIFIED (2) Flank pain, acute Code(s): R10.9 - UNSPECIFIED ABDOMINAL PAIN (3) Left renal mass Code(s): N28.89 - OTHER SPECIFIED DISORDERS OF KIDNEY AND URETER Assessment/Plan Current Medications Generic Name Dose Route Start Last Admin Trade Name Freq PRN Reason Stop Dose Admin Acetaminophen 650 mg 05/02/19 06:44 05/06/19 18:06 Tylenol - PO 650 mg Q6H PRN Administration FEVER Docusate Sodium 100 mg 05/04/19 10:00 05/07/19 10:47 Colace - PO 100 mg DAILY [facility] Administration Heparin Sodium (Porcine) 5,000 unit 05/01/19 14:00 05/07/19 13:51 Heparin - SQ 5,000 unit TID TYSON Administration Daptomycin 450 mg/ Sodium 50 mls @ 50 mls/hr 05/04/19 11:00 05/07/19 12:55 Chloride IVPB 50 mls/hr DAILY [facility] Administration Protocol Sodium Chloride 1,000 mls @ 75 mls/hr 05/06/19 16:54 05/06/19 18:02 Normal Saline - IV 75 mls/hr ASDIR TYSON Administration Oxycodone HCl 5 mg 05/03/19 17:50 05/06/19 23:40 Roxicodone - PO 5 mg Q8H PRN Administration PAIN LEVEL 7 - 10 Microbiology 05/04/19 10:15 Blood - Peripheral Venous Blood Culture - Preliminary NO GROWTH OBTAINED AFTER 24 HOURS, INCUBATION TO CONTINUE FOR 4 DAYS. 05/04/19 10:00 Blood - Peripheral Venous Blood Culture - Preliminary NO GROWTH OBTAINED AFTER 24 HOURS, INCUBATION TO CONTINUE FOR 4 DAYS. Laboratory Tests 05/02/19 05/03/19 05/04/19 06:25 06:15 06:10 Creatinine C-Reactive Protein 15.2 H [id number] (%) [id number] (%) SIMÓN M-Josias Not observed HIV 1&2 Antibody Screen Negative HIV P24 Antigen Negative 05/05/19 05/07/19 05/07/19 07:35 08:20 12:00 Creatinine 0.6 C-Reactive Protein 12.9 H [id number] (%) Pending Vluks-1-Wozjensee (%) Pending SIMÓN M-Josias HIV 1&2 Antibody Screen HIV P24 Antigen Microbiology 05/04/19 10:15 Blood - Peripheral Venous Blood Culture - Preliminary NO GROWTH OBTAINED AFTER 72 HOURS, INCUBATION TO CONTINUE FOR 2 DAYS. 05/04/19 10:00 Blood - Peripheral Venous Blood Culture - Preliminary NO GROWTH OBTAINED AFTER 72 HOURS, INCUBATION TO CONTINUE FOR 2 DAYS. Impression 1. renal abscess vs mass 2. recent uti 3. heart murmur 4. thrombocytosis Plan - renal function is stable - pt tolerating diet - can d/c fluids - drain in place but clamped - consider heme eval for thrombocytosis - will follow prn
--- NOTE | 2019-05-07 15:42 | PN ---
Progress Note (short form) - Note Progress Note: no complaints Vital Signs Period Temp Pulse Resp BP Sys/Solano Pulse Ox Last 24 Hr 98.7 F-99.4 F 72-99 18-20 95-123/57-74 99-99 cor-rrr lungs clear abd soft,nt drain in place ext no edema CBC, BMP 05/07/19 08:20 05/07/19 08:20 Microbiology 05/04/19 10:00 Blood - Peripheral Venous Blood Culture - Preliminary NO GROWTH OBTAINED AFTER 72 HOURS, INCUBATION TO CONTINUE FOR 2 DAYS. 05/04/19 10:15 Blood - Peripheral Venous Blood Culture - Preliminary NO GROWTH OBTAINED AFTER 72 HOURS, INCUBATION TO CONTINUE FOR 2 DAYS. 04/29/19 20:45 Blood - Peripheral Venous Blood Culture - Final NO GROWTH AFTER 5 DAYS INCUBATION 04/29/19 20:40 Blood - Peripheral Venous Blood Culture - Final NO GROWTH AFTER 5 DAYS INCUBATION 04/30/19 15:00 Abscess Gram Stain - Final 04/30/19 15:00 Abscess Body Fluid Culture - Final Mr S Aureus 04/30/19 15:00 Abscess Anaerobic Culture - Final NO ANAEROBES WERE ISOLATED 04/29/19 20:20 Urine - Urine Clean Catch Urine Culture - Final NO GROWTH OBTAINED Current Medications Acetaminophen (Tylenol -) 650 mg PO Q6H PRN PRN Reason: FEVER Last Admin: 05/06/19 18:06 Dose: 650 mg Docusate Sodium (Colace -) 100 mg PO DAILY [facility] Last Admin: 05/07/19 10:47 Dose: 100 mg Heparin Sodium (Porcine) (Heparin -) 5,000 unit SQ TID [facility] Last Admin: 05/07/19 13:51 Dose: 5,000 unit Daptomycin 450 mg/ Sodium (Chloride) 50 mls @ 50 mls/hr IVPB DAILY [facility]; Protocol Last Admin: 05/07/19 12:55 Dose: 50 mls/hr Oxycodone HCl (Roxicodone -) 5 mg PO Q8H PRN PRN Reason: PAIN LEVEL 7 - 10 Last Admin: 05/06/19 23:40 Dose: 5 mg a/p probable MRSA renal abscess- most likely from a transient bacteremia day #4 daptomycin, to continue trend crp Problem List - Problems (1) Left renal mass Code(s): N28.89 - OTHER SPECIFIED DISORDERS OF KIDNEY AND URETER
--- NOTE | 2019-05-07 16:34 | PN ---
Physical Exam: SUBJECTIVE: Patient seen and examined at the bedside, there were no acute events. Patient reports that his pain is better. Bag has been removed from drain tube and tube has been clamped. OBJECTIVE: Vital Signs Period Temp Pulse Resp BP Sys/Solano Pulse Ox Last 24 Hr 98.7 F-99.4 F 72-99 18-20 95-123/57-74 99-99 GENERAL: The patient is awake, alert, and fully oriented, in no acute distress, HEAD: Normal with no signs of trauma. EYES: PERRL, extraocular movements intact, sclera anicteric, conjunctiva clear. No ptosis. ENT: Ears normal, nares patent, oropharynx clear without exudates, moist mucous membranes. NECK: Trachea midline, full range of motion, supple. LUNGS: Breath sounds equal, clear to auscultation bilaterally, no wheezes, no crackles, no accessory muscle use. HEART: Regular rate and rhythm, S1, S2, diastolic murmur heard at LLSB. ABDOMEN: Soft, no tenderness to palpation, nondistended, normoactive bowel sounds, no guarding, no rebound, no CVA tenderness, drain removed this afternoon. EXTREMITIES: 2+ pulses, warm, well-perfused, no edema. NEUROLOGICAL: Cranial nerves II through XII grossly intact. Normal speech, gait not observed. PSYCH: agitated mood SKIN: Warm, dry, normal turgor, no rashes or lesions noted Laboratory Results - last 24 hr 05/07/19 05/07/19 08:20 08:20 WBC 13.4 H RBC 4.19 Hgb 12.4 Hct 36.7 MCV 87.6 MCH 29.5 MCHC 33.7 RDW 14.5 Plt Count 811 H MPV 7.2 L Absolute Neuts (auto) 10.5 H Neutrophils % 77.9 Lymphocytes % 14.6 Monocytes % 6.2 Eosinophils % 0.9 Basophils % 0.4 Nucleated RBC % 0 Sodium 136 Potassium 4.9 Chloride 101 Carbon Dioxide 27 Anion Gap 8 BUN 10.2 Creatinine 0.6 Est GFR (CKD-EPI)AfAm 166.58 Est GFR (CKD-EPI)NonAf 143.72 Random Glucose 80 Calcium 9.5 Total Bilirubin 0.3 AST 16 ALT 9 L Alkaline Phosphatase 137 H Total Protein 8.3 H Albumin 2.8 L Active Medications Generic Name Dose Route Start Last Admin Trade Name Freq PRN Reason Stop Dose Admin Acetaminophen 650 mg 05/02/19 06:44 05/06/19 18:06 Tylenol - PO 650 mg Q6H PRN Administration FEVER Docusate Sodium 100 mg 05/04/19 10:00 05/07/19 10:47 Colace - PO 100 mg DAILY TYSON Administration Heparin Sodium (Porcine) 5,000 unit 05/01/19 14:00 05/07/19 13:51 Heparin - SQ 5,000 unit TID TYSON Administration Daptomycin 450 mg/ Sodium 50 mls @ 50 mls/hr 05/04/19 11:00 05/07/19 12:55 Chloride IVPB 50 mls/hr DAILY TYSON Administration Protocol Oxycodone HCl 5 mg 05/03/19 17:50 05/06/19 23:40 Roxicodone - PO 5 mg Q8H PRN Administration PAIN LEVEL 7 - 10 Imaging: CT Abd&pelvis w/contrast: There is a 6x6.5x6.9cm complex infiltrative heterogeneous hypovascular mass, possibly multiloculated, in the superior pole of the left kidney. Renal cell carcinoma can have this appearance. There is no clear well-defined peripherally enhancing wall with central fluid cavity to suggest an abscess on the current examination. There is no clear evidence of pyelonephritis in the remaining portions of the left kidney. The left adrenal gland is not clearly identified due to the medial extension of the mass. Right kidney appears normal. CXR - negative for acute pathology ASSESSMENT/PLAN: 19 y/o/m with no PMHx here for abdominal pain, patient told he has a renal abscess at [facility] but signed out AMA and came here. 1- Sepsis most likely 2/2 MRSA renal abscess- most likely from a transient bacteremia, patient still with low grade fevers overnight. - s/p IR drainage and YOLIE drain placement and re-adjustment yesterday (05/04) - cytology from drainage pending - continue with dapto per ID, day 4 -pain control with ofirmev and oxycodone - ID following, appreciate recommendations, will continue to observe inpatient, likely over the weekend as patient was not on therapeutic dose of antibiotics until 3 days ago - Per IR substance in renal abcess likely phlegmon and may be why there is not much drainage. Drain removed this afternoon. - records obtained from [facility], blood cx with no growth for 48h, abdominal CT per their report showing complicated abcess, HIV-1 AB EIA reactive however repeat 4th gen HIV Ag/Ab non-reactive. Copy can be found in patient's paper chart. 2- Thrombocytosis - reactive - trend with cbcs 3)FEN NS @100mls/hr 4)Prophylaxis -SCDs and heparin sq 5)Disposition -admitted to Med/Surg, will require picc line for extended course of IV antibiotics. Visit type - Emergency Visit Emergency Visit: Yes ED Registration Date: 04/29/19 Care time: The patient presented to the Emergency Department on the above date and was hospitalized for further evaluation of their emergent condition. - New Patient This patient is new to me today: No - Critical Care Critical Care patient: No - Discharge Referral Referred to [facility] Med P.C.: No ATTENDING PHYSICIAN STATEMENT I saw and evaluated the patient. I reviewed the resident's note and discussed the case with the resident. I agree with the resident's findings and plan as documented. SUBJECTIVE: OBJECTIVE: ASSESSMENT AND PLAN:
--- NOTE | 2019-05-07 16:42 | PN ---
Teaching Attending Note Name of Resident: Gracie Harden ATTENDING PHYSICIAN STATEMENT I saw and evaluated the patient. I reviewed the resident's note and discussed the case with the resident. I agree with the resident's findings and plan as documented. SUBJECTIVE: Patient is feeling better with no acute distress, no shortness of breath, no nausea or vomiting, no fever or chills. OBJECTIVE: Vital Signs Temperature 98.9 F 05/07/19 14:34 Pulse Rate 85 05/07/19 14:34 Respiratory Rate 18 05/07/19 14:34 Blood Pressure 95/64 05/07/19 14:34 O2 Sat by Pulse Oximetry (%) 99 05/07/19 09:00 GENERAL: The patient is awake, alert, and fully oriented, in no acute distress. HEAD: Normal with no signs of trauma. EYES: PERRL, extraocular movements intact, sclera anicteric, conjunctiva clear. ENT: Ears normal, oropharynx clear without exudates, moist mucous membranes. NECK: Trachea midline, full range of motion, supple. LUNGS: Breath sounds equal, clear to auscultation bilaterally, no wheezes, no crackles, no accessory muscle use. HEART: Regular rate and rhythm, S1, S2 without murmur, rub or gallop. ABDOMEN: Soft, NT,ND, normoactive bowel sounds, no guarding, no rebound, no hepatosplenomegaly, no masses. positive for drainage EXTREMITIES: 2+ pulses, warm, well-perfused, no edema. NEUROLOGICAL: Cranial nerves II through XII grossly intact. Normal speech, gait not observed. PSYCH: Normal mood, normal affect. SKIN: Warm, dry, normal turgor, no rashes or lesions noted CBCD WBC 13.4 K/mm3 (4.0-10.0) H 05/07/19 08:20 RBC 4.19 M/mm3 (4.00-5.60) 05/07/19 08:20 Hgb 12.4 GM/dL (11.7-16.9) 05/07/19 08:20 Hct 36.7 % (35.4-49) 05/07/19 08:20 MCV 87.6 fl (80-96) 05/07/19 08:20 MCHC 33.7 g/dl (32.0-35.9) 05/07/19 08:20 RDW 14.5 % (11.9-15.9) 05/07/19 08:20 Plt Count 811 K/MM3 (134-434) H 05/07/19 08:20 MPV 7.2 fl (7.5-11.1) L 05/07/19 08:20 CMP Sodium 136 mmol/L (136-145) 05/07/19 08:20 Potassium 4.9 mmol/L (3.5-5.1) 05/07/19 08:20 Chloride 101 mmol/L (98-107) 05/07/19 08:20 Carbon Dioxide 27 mmol/L (21-32) 05/07/19 08:20 Anion Gap 8 MMOL/L (8-16) 05/07/19 08:20 BUN 10.2 mg/dL (7-18) 05/07/19 08:20 Creatinine 0.6 mg/dL (0.55-1.3) 05/07/19 08:20 Random Glucose 80 mg/dL (74-106) 05/07/19 08:20 Calcium 9.5 mg/dL (8.5-10.1) 05/07/19 08:20 Total Bilirubin 0.3 mg/dL (0.2-1) 05/07/19 08:20 AST 16 U/L (15-37) 05/07/19 08:20 ALT 9 U/L (13-61) L 05/07/19 08:20 Alkaline Phosphatase 137 U/L (45-117) H 05/07/19 08:20 Total Protein 8.3 g/dl (6.4-8.2) H 05/07/19 08:20 Albumin 2.8 g/dl (3.4-5.0) L 05/07/19 08:20 CARDIAC ENZYMES Creatine Kinase 82 U/L (26-308) 05/05/19 07:35 Current Medications Generic Name Dose Route Start Last Admin Trade Name Freq PRN Reason Stop Dose Admin Acetaminophen 650 mg 05/02/19 06:44 05/06/19 18:06 Tylenol - PO 650 mg Q6H PRN Administration FEVER Docusate Sodium 100 mg 05/04/19 10:00 05/07/19 10:47 Colace - PO 100 mg DAILY TYSON Administration Heparin Sodium (Porcine) 5,000 unit 05/01/19 14:00 05/07/19 13:51 Heparin - SQ 5,000 unit TID TYSON Administration Daptomycin 450 mg/ Sodium 50 mls @ 50 mls/hr 05/04/19 11:00 05/07/19 12:55 Chloride IVPB 50 mls/hr DAILY TYSON Administration Protocol Oxycodone HCl 5 mg 05/03/19 17:50 05/06/19 23:40 Roxicodone - PO 5 mg Q8H PRN Administration PAIN LEVEL 7 - 10 Home Medications Medication Instructions Recorded NK [No Known Home Medication] 04/29/19 Laboratory Tests 05/02/19 05/03/19 05/07/19 06:25 06:15 12:00 Yahdi-7-Nrnrepkke (%) Pending Zavrk-5-Xbplengdk (%) Pending Beta Globulins (%) Pending Gamma Globulins (%) Pending M-Josias % Pending SIMÓN M-Josias Not observed HIV 1&2 Antibody Screen Negative HIV P24 Antigen Negative ASSESSMENT AND PLAN: Patient is a 19y/o male presented with L renal infection /abscess in [facility] 2 days ago, who presented to [facility] after leaving [place] . # Left renal MRSA abscess s/p IR drainage with a HEMAL drain placement, Hemal drainage is pulled out by the IR radiologist, cytology from drainage pending , continue Daptomycin day#4 as per ID . follow HIV testing , paraprotein gap elevated., follow SPEP/UPEP , follow up crp #Thrombocytosis: continues to be elevated DVT: SCDs ,and heparin SQ
[2019-05-07] MEDS ORDERED: INSULIN (NOVOLOG) ASPART 100 UNITS/ML 10ML VIAL ONE (16:52)
[2019-05-08] MEDS: HEPARIN NA (PORCINE) 5,000 UNITS/ML 1ML VIAL SQ SCH ×3 (06:56→21:13)
[2019-05-08] MEDS: DAPTOMYCIN 450 MG in SODIUM CHLORIDE 50 ML IVPB SCH (10:04)
[2019-05-08] MEDS: DOCUSATE SODIUM 100 MG CAPSULE (FP) PO SCH (10:05)
[2019-05-08 10:57] LABS: BASO % 0.3 % (0-2.0); EOS % 1.1 % (0-4.5); HEMOGLOBIN 12.6 GM/dL (11.7-16.9); LYMPH % 12.5 % (8-40); MCH 29.7 pg (25.7-33.7); MCHC 33.9 g/dl (32.0-35.9); MEAN CELL VOLUME 87.5 fl (80-96); MONO % 9.5 % (3.8-10.2); NEUT % 76.6 % (42.8-82.8); PLATELET COUNT 823 K/MM3 (134-434); RBC 4.23 M/mm3 (4.00-5.60); RDW 14.2 % (11.9-15.9)
--- NOTE | 2019-05-08 11:08 | PN ---
Progress Note (short form) - Note Progress Note: Patient is feeling better with no acute distress, is at bedside. Vital Signs Temperature 98.2 F 05/08/19 10:00 Pulse Rate 90 05/08/19 10:00 Respiratory Rate 18 05/08/19 10:00 Blood Pressure 138/59 L 05/08/19 10:00 O2 Sat by Pulse Oximetry (%) 99 05/07/19 21:00 GENERAL: The patient is awake, alert, and fully oriented, in no acute distress. HEAD: Normal with no signs of trauma. EYES: PERRL, extraocular movements intact, sclera anicteric, conjunctiva clear. ENT: Ears normal, oropharynx clear without exudates, moist mucous membranes. NECK: Trachea midline, full range of motion, supple. LUNGS: Breath sounds equal, clear to auscultation bilaterally, no wheezes, no crackles, no accessory muscle use. HEART: Regular rate and rhythm, S1, S2 without murmur, rub or gallop. ABDOMEN: Soft, NT,ND, normoactive bowel sounds, no guarding, no rebound, no hepatosplenomegaly, no masses. positive for drainage EXTREMITIES: 2+ pulses, warm, well-perfused, no edema. NEUROLOGICAL: Cranial nerves II through XII grossly intact. Normal speech, gait not observed. PSYCH: Normal mood, normal affect. SKIN: Warm, dry, normal turgor, no rashes or lesions noted CBCD WBC 13.4 K/mm3 (4.0-10.0) H 05/07/19 08:20 RBC 4.19 M/mm3 (4.00-5.60) 05/07/19 08:20 Hgb 12.4 GM/dL (11.7-16.9) 05/07/19 08:20 Hct 36.7 % (35.4-49) 05/07/19 08:20 MCV 87.6 fl (80-96) 05/07/19 08:20 MCHC 33.7 g/dl (32.0-35.9) 05/07/19 08:20 RDW 14.5 % (11.9-15.9) 05/07/19 08:20 Plt Count 811 K/MM3 (134-434) H 05/07/19 08:20 MPV 7.2 fl (7.5-11.1) L 05/07/19 08:20 CMP Sodium 136 mmol/L (136-145) 05/07/19 08:20 Potassium 4.9 mmol/L (3.5-5.1) 05/07/19 08:20 Chloride 101 mmol/L (98-107) 05/07/19 08:20 Carbon Dioxide 27 mmol/L (21-32) 05/07/19 08:20 Anion Gap 8 MMOL/L (8-16) 05/07/19 08:20 BUN 10.2 mg/dL (7-18) 05/07/19 08:20 Creatinine 0.6 mg/dL (0.55-1.3) 05/07/19 08:20 Random Glucose 80 mg/dL (74-106) 05/07/19 08:20 Calcium 9.5 mg/dL (8.5-10.1) 05/07/19 08:20 Total Bilirubin 0.3 mg/dL (0.2-1) 05/07/19 08:20 AST 16 U/L (15-37) 05/07/19 08:20 ALT 9 U/L (13-61) L 05/07/19 08:20 Alkaline Phosphatase 137 U/L (45-117) H 05/07/19 08:20 Total Protein 8.3 g/dl (6.4-8.2) H 05/07/19 08:20 Albumin 2.8 g/dl (3.4-5.0) L 05/07/19 08:20 CARDIAC ENZYMES Creatine Kinase 82 U/L (26-308) 05/05/19 07:35 Current Medications Generic Name Dose Route Start Last Admin Trade Name Gigiq PRN Reason Stop Dose Admin Acetaminophen 650 mg 05/02/19 06:44 05/06/19 18:06 Tylenol - PO 650 mg Q6H PRN Administration FEVER Docusate Sodium 100 mg 05/04/19 10:00 05/08/19 10:05 Colace - PO 100 mg DAILY TYSON Administration Heparin Sodium (Porcine) 5,000 unit 05/01/19 14:00 05/08/19 06:56 Heparin - SQ 5,000 unit TID TYSON Administration Daptomycin 450 mg/ Sodium 50 mls @ 50 mls/hr 05/04/19 11:00 05/08/19 10:04 Chloride IVPB 50 mls/hr DAILY TYSON Administration Protocol Oxycodone HCl 5 mg 05/03/19 17:50 05/06/19 23:40 Roxicodone - PO 5 mg Q8H PRN Administration PAIN LEVEL 7 - 10 Home Medications Medication Instructions Recorded NK [No Known Home Medication] 04/29/19 Microbiology 05/04/19 10:00 Blood - Peripheral Venous Blood Culture - Final NO GROWTH AFTER 5 DAYS INCUBATION 05/04/19 10:15 Blood - Peripheral Venous Blood Culture - Final NO GROWTH AFTER 5 DAYS INCUBATION 04/29/19 20:45 Blood - Peripheral Venous Blood Culture - Final NO GROWTH AFTER 5 DAYS INCUBATION 04/29/19 20:40 Blood - Peripheral Venous Blood Culture - Final NO GROWTH AFTER 5 DAYS INCUBATION 04/30/19 15:00 Abscess Gram Stain - Final 04/30/19 15:00 Abscess Body Fluid Culture - Final S Aureus 04/30/19 15:00 Abscess Anaerobic Culture - Final NO ANAEROBES WERE ISOLATED 04/29/19 20:20 Urine - Urine Clean Catch Urine Culture - Final NO GROWTH OBTAINED Laboratory Tests 05/02/19 05/03/19 05/07/19 06:25 06:15 12:00 Albumin Albumin (PEP) 2.6 L Globulin 3.9 Albumin/Globulin Ratio 0.7 Uyezj-0-Ctcbjumqn (%) Pending Ktbso-6-Hyhbelumz (%) Pending Beta Globulins 1.0 Beta Globulins (%) Pending Gamma Globulins (%) Pending M-Josias % Pending SIMÓN M-Josias Not observed HIV 1&2 Antibody Screen Negative HIV P24 Antigen Negative 05/08/19 10:20 Albumin 3.0 L Albumin (PEP) Globulin Albumin/Globulin Ratio Uqzyv-1-Xftjutbxo (%) Abwdi-8-Adpxdpgxp (%) Beta Globulins Beta Globulins (%) Gamma Globulins (%) M-Josias % SIMÓN M-Josias HIV 1&2 Antibody Screen HIV P24 Antigen ASSESSMENT AND PLAN: Patient is a 19y/o male presented with L renal infection /abscess in [facility] 2 days ago, who presented to [facility] after leaving [facility] . # Left renal MRSA abscess s/p IR drainage with a HEMAL drain placement, Hemal drainage is pulled out by the IR, cytology is as above. continue Daptomycin day# 5 as per ID . follow HIV testing , paraprotein gap elevated, follow SPEP/UPEP, ESR is elevated. #Thrombocytosis: continues to be elevated , 811 today DVT: SCDs ,and heparin SQ Visit type - Emergency Visit Emergency Visit: Yes ED Registration Date: 04/29/19 Care time: The patient presented to the Emergency Department on the above date and was hospitalized for further evaluation of their emergent condition. - New Patient This patient is new to me today: No - Critical Care Critical Care patient: No - Discharge Referral Referred to [facility] Med P.C.: No
[2019-05-08 11:31] LABS: BILIRUBIN,TOTAL 0.3 mg/dL (0.2-1); CALCIUM 9.4 mg/dL (8.5-10.1); CREATININE 0.8 mg/dL (0.55-1.3); POTASSIUM 4.5 mmol/L (3.5-5.1); TOT PROT 8.7 g/dl (6.4-8.2)
[2019-05-09] MEDS: HEPARIN NA (PORCINE) 5,000 UNITS/ML 1ML VIAL SQ SCH ×3 (06:29→21:48)
[2019-05-09] MEDS: DOCUSATE SODIUM 100 MG CAPSULE (FP) PO SCH (09:33)
[2019-05-09] MEDS: DAPTOMYCIN 450 MG in SODIUM CHLORIDE 50 ML IVPB SCH (09:34)
--- NOTE | 2019-05-09 10:05 | PN ---
Teaching Attending Note Name of Resident: Gracie Harden ATTENDING PHYSICIAN STATEMENT I saw and evaluated the patient. I reviewed the resident's note and discussed the case with the resident. I agree with the resident's findings and plan as documented. SUBJECTIVE: Patient is comfortable with no acute distress. no fever or chills. OBJECTIVE: Vital Signs Temperature 98.5 F 05/09/19 10:00 Pulse Rate 90 05/09/19 10:00 Respiratory Rate 20 05/09/19 10:00 Blood Pressure 119/58 L 05/09/19 10:00 O2 Sat by Pulse Oximetry (%) 98 05/08/19 21:00 GENERAL: The patient is awake, alert, and fully oriented, in no acute distress. HEAD: Normal with no signs of trauma. EYES: PERRL, extraocular movements intact, sclera anicteric, conjunctiva clear. ENT: Ears normal, oropharynx clear without exudates, moist mucous membranes. NECK: Trachea midline, full range of motion, supple. LUNGS: Breath sounds equal, clear to auscultation bilaterally, no wheezes, no crackles, no accessory muscle use. HEART: Regular rate and rhythm, S1, S2 without murmur, rub or gallop. ABDOMEN: Soft, NT,ND, normoactive bowel sounds, no guarding, no rebound, no hepatosplenomegaly, no masses. drainage is pulled now EXTREMITIES: 2+ pulses, warm, well-perfused, no edema. NEUROLOGICAL: Cranial nerves II through XII grossly intact. Normal speech, gait not observed. PSYCH: Normal mood, normal affect. SKIN: Warm, dry, normal turgor, no rashes or lesions noted CBCD WBC 13.0 K/mm3 (4.0-10.0) H 05/08/19 10:20 RBC 4.23 M/mm3 (4.00-5.60) 05/08/19 10:20 Hgb 12.6 GM/dL (11.7-16.9) 05/08/19 10:20 Hct 37.0 % (35.4-49) 05/08/19 10:20 MCV 87.5 fl (80-96) 05/08/19 10:20 MCHC 33.9 g/dl (32.0-35.9) 05/08/19 10:20 RDW 14.2 % (11.9-15.9) 05/08/19 10:20 Plt Count 823 K/MM3 (134-434) H 05/08/19 10:20 MPV 7.0 fl (7.5-11.1) L 05/08/19 10:20 CMP Sodium 135 mmol/L (136-145) L 05/08/19 10:20 Potassium 4.5 mmol/L (3.5-5.1) 05/08/19 10:20 Chloride 98 mmol/L (98-107) 05/08/19 10:20 Carbon Dioxide 30 mmol/L (21-32) 05/08/19 10:20 Anion Gap 8 MMOL/L (8-16) 05/08/19 10:20 BUN 11.0 mg/dL (7-18) 05/08/19 10:20 Creatinine 0.8 mg/dL (0.55-1.3) 05/08/19 10:20 Random Glucose 67 mg/dL (74-106) L 05/08/19 10:20 Calcium 9.4 mg/dL (8.5-10.1) 05/08/19 10:20 Total Bilirubin 0.3 mg/dL (0.2-1) 05/08/19 10:20 AST 19 U/L (15-37) 05/08/19 10:20 ALT 10 U/L (13-61) L 05/08/19 10:20 Alkaline Phosphatase 139 U/L (45-117) H 05/08/19 10:20 Total Protein 8.7 g/dl (6.4-8.2) H 05/08/19 10:20 Albumin 3.0 g/dl (3.4-5.0) L 05/08/19 10:20 CARDIAC ENZYMES Creatine Kinase 82 U/L (26-308) 05/05/19 07:35 Current Medications Generic Name Dose Route Start Last Admin Trade Name Freq PRN Reason Stop Dose Admin Acetaminophen 650 mg 05/02/19 06:44 05/06/19 18:06 Tylenol - PO 650 mg Q6H PRN Administration FEVER Docusate Sodium 100 mg 05/04/19 10:00 05/09/19 09:33 Colace - PO 100 mg DAILY TYSON Administration Heparin Sodium (Porcine) 5,000 unit 05/01/19 14:00 05/09/19 06:29 Heparin - SQ 5,000 unit TID TYSON Administration Daptomycin 450 mg/ Sodium 50 mls @ 50 mls/hr 05/04/19 11:00 05/09/19 09:34 Chloride IVPB 50 mls/hr DAILY TYSON Administration Protocol Oxycodone HCl 5 mg 05/03/19 17:50 05/06/19 23:40 Roxicodone - PO 5 mg Q8H PRN Administration PAIN LEVEL 7 - 10 Home Medications Medication Instructions Recorded NK [No Known Home Medication] 04/29/19 Microbiology 05/04/19 10:00 Blood - Peripheral Venous Blood Culture - Final NO GROWTH AFTER 5 DAYS INCUBATION 05/04/19 10:15 Blood - Peripheral Venous Blood Culture - Final NO GROWTH AFTER 5 DAYS INCUBATION 04/29/19 20:45 Blood - Peripheral Venous Blood Culture - Final NO GROWTH AFTER 5 DAYS INCUBATION 04/29/19 20:40 Blood - Peripheral Venous Blood Culture - Final NO GROWTH AFTER 5 DAYS INCUBATION 04/30/19 15:00 Abscess Gram Stain - Final 04/30/19 15:00 Abscess Body Fluid Culture - Final Mr S Aureus 04/30/19 15:00 Abscess Anaerobic Culture - Final NO ANAEROBES WERE ISOLATED 04/29/19 20:20 Urine - Urine Clean Catch Urine Culture - Final NO GROWTH OBTAINED ASSESSMENT AND PLAN: Patient is a 19y/o male presented with L renal infection /abscess in [facility] 2 days ago, who presented to [facility] after [facility] . # Left renal MRSA abscess s/p IR drainage , Hemal drainage is pulled out, cytology as above , continue Daptomycin day#6 as per ID . follow HIV testing , paraprotein gap elevated. follow SPEP/UPEP is pending. CRP is 12.6 . will discuss with ID in am for further care and plan. #Thrombocytosis: continues to be elevated DVT: SCDs ,and heparin SQ 05/02/19 05/03/19 05/07/19 06:25 06:15 12:00 Albumin Albumin (PEP) 2.6 L Globulin 3.9 Albumin/Globulin Ratio 0.7 Hiapl-1-Rsnrgoppa (%) Pending Mluwd-1-Hgnjjxtvd (%) Pending Beta Globulins 1.0 Beta Globulins (%) Pending Gamma Globulins (%) Pending M-Josias % Pending SIMÓN M-Josias Not observed HIV 1&2 Antibody Screen Negative HIV P24 Antigen Negative 05/08/19 10:20 Albumin 3.0 L Albumin (PEP) Globulin Albumin/Globulin Ratio Nudep-0-Leueozugh (%) Extuy-4-Hoslimjit (%) Beta Globulins Beta Globulins (%) Gamma Globulins (%) M-Josias % SIMÓN M-Josias HIV 1&2 Antibody Screen HIV P24 Antigen
--- NOTE | 2019-05-09 15:54 | PN ---
Physical Exam: SUBJECTIVE: Patient seen and examined at the bedside, there were no acute events. Drain fully removed. Slight amount of serosanguenous fluid present on gauze of dressing, but other pace clean and intact. OBJECTIVE: Vital Signs Period Temp Pulse Resp BP Sys/Solano Pulse Ox Last 24 Hr 98.3 F-98.5 F 89-93 20-20 113-123/58-67 98-98 GENERAL: The patient is awake, alert, and fully oriented, in no acute distress, HEAD: Normal with no signs of trauma. EYES: PERRL, extraocular movements intact, sclera anicteric, conjunctiva clear. No ptosis. ENT: Ears normal, nares patent, oropharynx clear without exudates, moist mucous membranes. NECK: Trachea midline, full range of motion, supple. LUNGS: Breath sounds equal, clear to auscultation bilaterally, no wheezes, no crackles, no accessory muscle use. HEART: Regular rate and rhythm, S1, S2, diastolic murmur heard at LLSB. ABDOMEN: Soft, no tenderness to palpation, nondistended, normoactive bowel sounds, no guarding, no rebound, no CVA tenderness, drain removed dressing with small amount serosanguenous fluid visible on gauze. Otherwise dry and intact. EXTREMITIES: 2+ pulses, warm, well-perfused, no edema. NEUROLOGICAL: Cranial nerves II through XII grossly intact. Normal speech, gait not observed. PSYCH: agitated mood SKIN: Warm, dry, normal turgor, no rashes or lesions noted Active Medications Generic Name Dose Route Start Last Admin Trade Name Freq PRN Reason Stop Dose Admin Acetaminophen 650 mg 05/02/19 06:44 05/06/19 18:06 Tylenol - PO 650 mg Q6H PRN Administration FEVER Docusate Sodium 100 mg 05/04/19 10:00 05/09/19 09:33 Colace - PO 100 mg DAILY TYSON Administration Heparin Sodium (Porcine) 5,000 unit 05/01/19 14:00 05/09/19 15:01 Heparin - SQ 5,000 unit TID TYSON Administration Daptomycin 450 mg/ Sodium 50 mls @ 50 mls/hr 05/04/19 11:00 05/09/19 09:34 Chloride IVPB 50 mls/hr DAILY TYSON Administration Protocol Oxycodone HCl 5 mg 05/03/19 17:50 05/06/19 23:40 Roxicodone - PO 5 mg Q8H PRN Administration PAIN LEVEL 7 - 10 ASSESSMENT/PLAN: Imaging: CT Abd&pelvis w/contrast: There is a 6x6.5x6.9cm complex infiltrative heterogeneous hypovascular mass, possibly multiloculated, in the superior pole of the left kidney. Renal cell carcinoma can have this appearance. There is no clear well-defined peripherally enhancing wall with central fluid cavity to suggest an abscess on the current examination. There is no clear evidence of pyelonephritis in the remaining portions of the left kidney. The left adrenal gland is not clearly identified due to the medial extension of the mass. Right kidney appears normal. CXR - negative for acute pathology ASSESSMENT/PLAN: 19 y/o/m with no PMHx here for abdominal pain, patient told he has a renal abscess at [facility] but signed out AMA and came here. 1- Sepsis most likely 2/2 MRSA renal abscess- most likely from a transient bacteremia, patient still with low grade fevers overnight. - s/p IR drainage and YOLIE drain placement and re-adjustment yesterday (05/04) - cytology from drainage pending - continue with dapto per ID, day 6 -pain control with ofirmev and oxycodone - ID following, appreciate recommendations, will continue to observe inpatient, - records obtained from [facility], blood cx with no growth for 48h, abdominal CT per their report showing complicated abcess, HIV-1 AB EIA reactive however repeat 4th gen HIV Ag/Ab non-reactive. Copy can be found in patient's paper chart. 2- Thrombocytosis - reactive - trend with cbcs 3)FEN PO fluids replete lytes PRN Regular Diet 4)Prophylaxis -SCDs and heparin sq 5)Disposition -admitted to Med/Surg, will require picc line for extended course of IV antibiotics. Visit type - Emergency Visit Emergency Visit: Yes ED Registration Date: 04/29/19 Care time: The patient presented to the Emergency Department on the above date and was hospitalized for further evaluation of their emergent condition. - New Patient This patient is new to me today: No - Critical Care Critical Care patient: No - Discharge Referral Referred to [facility] Med P.C.: No ATTENDING PHYSICIAN STATEMENT I saw and evaluated the patient. I reviewed the resident's note and discussed the case with the resident. I agree with the resident's findings and plan as documented. SUBJECTIVE: OBJECTIVE: ASSESSMENT AND PLAN:
[2019-05-10] MEDS: HEPARIN NA (PORCINE) 5,000 UNITS/ML 1ML VIAL SQ SCH ×3 (06:04→21:30)
[2019-05-10 08:40] LABS: BASO % 0.6 % (0-2.0); EOS % 0.4 % (0-4.5); HEMATOCRIT 38.5 % (35.4-49); HEMOGLOBIN 13.3 GM/dL (11.7-16.9); LYMPH % 9.5 % (8-40); MCH 29.9 pg (25.7-33.7); MCHC 34.5 g/dl (32.0-35.9); MEAN CELL VOLUME 86.6 fl (80-96); MEAN PLT VOLUME 7.5 fl (7.5-11.1); NEUT % 81.5 % (42.8-82.8); PLATELET COUNT 800 K/MM3 (134-434); RBC 4.45 M/mm3 (4.00-5.60); RDW 14.3 % (11.9-15.9); WHITE BLOOD COUNT 17.8 K/mm3 (4.0-10.0)
--- NOTE | 2019-05-10 09:01 | PN ---
Teaching Attending Note Name of Resident: Gracie Harden ATTENDING PHYSICIAN STATEMENT I saw and evaluated the patient. I reviewed the resident's note and discussed the case with the resident. I agree with the resident's findings and plan as documented. SUBJECTIVE: Patient continues to have fever. OBJECTIVE: Vital Signs Temperature 99.1 F 05/10/19 06:30 Pulse Rate 101 H 05/10/19 06:30 Respiratory Rate 20 05/10/19 06:30 Blood Pressure 114/62 05/10/19 06:30 O2 Sat by Pulse Oximetry (%) 98 05/09/19 21:00 GENERAL: The patient is awake, alert, and fully oriented, in no acute distress. HEAD: Normal with no signs of trauma. EYES: PERRL, extraocular movements intact, sclera anicteric, conjunctiva clear. ENT: Ears normal, oropharynx clear without exudates, moist mucous membranes. NECK: Trachea midline, full range of motion, supple. LUNGS: Breath sounds equal, clear to auscultation bilaterally, no wheezes, no crackles, no accessory muscle use. HEART: Regular rate and rhythm, S1, S2 without murmur, rub or gallop. ABDOMEN: Soft, NT,ND, normoactive bowel sounds, no guarding, no rebound, no hepatosplenomegaly, no masses. drainage is pulled out now EXTREMITIES: 2+ pulses, warm, well-perfused, no edema. NEUROLOGICAL: Cranial nerves II through XII grossly intact. Normal speech, gait not observed. PSYCH: Normal mood, normal affect. SKIN: Warm, dry, normal turgor, no rashes or lesions noted CBCD WBC 17.8 K/mm3 (4.0-10.0) H 05/10/19 08:05 RBC 4.45 M/mm3 (4.00-5.60) 05/10/19 08:05 Hgb 13.3 GM/dL (11.7-16.9) 05/10/19 08:05 Hct 38.5 % (35.4-49) 05/10/19 08:05 MCV 86.6 fl (80-96) 05/10/19 08:05 MCHC 34.5 g/dl (32.0-35.9) 05/10/19 08:05 RDW 14.3 % (11.9-15.9) 05/10/19 08:05 Plt Count 800 K/MM3 (134-434) H 05/10/19 08:05 MPV 7.5 fl (7.5-11.1) 05/10/19 08:05 CMP Sodium 135 mmol/L (136-145) L 05/08/19 10:20 Potassium 4.5 mmol/L (3.5-5.1) 05/08/19 10:20 Chloride 98 mmol/L (98-107) 05/08/19 10:20 Carbon Dioxide 30 mmol/L (21-32) 05/08/19 10:20 Anion Gap 8 MMOL/L (8-16) 05/08/19 10:20 BUN 11.0 mg/dL (7-18) 05/08/19 10:20 Creatinine 0.8 mg/dL (0.55-1.3) 05/08/19 10:20 Random Glucose 67 mg/dL (74-106) L 05/08/19 10:20 Calcium 9.4 mg/dL (8.5-10.1) 05/08/19 10:20 Total Bilirubin 0.3 mg/dL (0.2-1) 05/08/19 10:20 AST 19 U/L (15-37) 05/08/19 10:20 ALT 10 U/L (13-61) L 05/08/19 10:20 Alkaline Phosphatase 139 U/L (45-117) H 05/08/19 10:20 Total Protein 8.7 g/dl (6.4-8.2) H 05/08/19 10:20 Albumin 3.0 g/dl (3.4-5.0) L 05/08/19 10:20 CARDIAC ENZYMES Creatine Kinase 82 U/L (26-308) 05/05/19 07:35 Current Medications Generic Name Dose Route Start Last Admin Trade Name Freq PRN Reason Stop Dose Admin Acetaminophen 650 mg 05/02/19 06:44 05/06/19 18:06 Tylenol - PO 650 mg Q6H PRN Administration FEVER Docusate Sodium 100 mg 05/04/19 10:00 05/09/19 09:33 Colace - PO 100 mg DAILY [facility] Administration Heparin Sodium (Porcine) 5,000 unit 05/01/19 14:00 05/10/19 06:04 Heparin - SQ Not Given TID [facility] Daptomycin 450 mg/ Sodium 50 mls @ 50 mls/hr 05/04/19 11:00 05/09/19 09:34 Chloride IVPB 50 mls/hr DAILY [facility] Administration Protocol Oxycodone HCl 5 mg 05/03/19 17:50 05/06/19 23:40 Roxicodone - PO 5 mg Q8H PRN Administration PAIN LEVEL 7 - 10 Home Medications Medication Instructions Recorded NK [No Known Home Medication] 04/29/19 Laboratory Tests 05/02/19 05/03/19 06:25 06:15 C-Reactive Protein Albumin Albumin (PEP) 2.6 L Globulin 3.9 Albumin/Globulin Ratio 0.7 Jidwv-7-Ikguiwjvz (%) Ishzd-0-Sbjvaxftf (%) Beta Globulins 1.0 Beta Globulins (%) Gamma Globulins (%) M-Josias % SIMÓN M-Josias Not observed HIV 1&2 Antibody Screen Negative HIV P24 Antigen Negative 05/08/19 05/10/19 10:20 08:05 C-Reactive Protein 12.4 H Albumin 3.0 L Albumin (PEP) Globulin Albumin/Globulin Ratio Rfuag-3-Tdqkriksk (%) Ntwno-9-Gbnjczydi (%) Beta Globulins Beta Globulins (%) Gamma Globulins (%) M-Josias % SIMÓN M-Josias HIV 1&2 Antibody Screen HIV P24 Antigen Microbiology 05/04/19 10:00 Blood - Peripheral Venous Blood Culture - Final NO GROWTH AFTER 5 DAYS INCUBATION 05/04/19 10:15 Blood - Peripheral Venous Blood Culture - Final NO GROWTH AFTER 5 DAYS INCUBATION 04/29/19 20:45 Blood - Peripheral Venous Blood Culture - Final NO GROWTH AFTER 5 DAYS INCUBATION 04/29/19 20:40 Blood - Peripheral Venous Blood Culture - Final NO GROWTH AFTER 5 DAYS INCUBATION 04/30/19 15:00 Abscess Gram Stain - Final 04/30/19 15:00 Abscess Body Fluid Culture - Final Mr S Aureus 04/30/19 15:00 Abscess Anaerobic Culture - Final NO ANAEROBES WERE ISOLATED 04/29/19 20:20 Urine - Urine Clean Catch Urine Culture - Final NO GROWTH OBTAINED ASSESSMENT AND PLAN: Patient is a 19y/o male presented with L renal infection /abscess in [facility] 2 days ago, who presented to [facility] after leaving [facility] . # Left renal MRSA abscess s/p IR drainage , Hemal drainage is pulled out, cytology as above , continue Daptomycin day#7 as per ID . HIV is negative, SPEP /UPEP is negative . CRP is 12.6 . will need repeat CT to evaluate for possible an abscess. #Thrombocytosis:reactive, continues to be elevated DVT: SCDs ,and heparin SQ
[2019-05-10 09:08] LABS: ALBUMIN 3.2 g/dl (3.4-5.0); BILIRUBIN,TOTAL 0.5 mg/dL (0.2-1); BLOOD UREA NITROGEN 13.5 mg/dL (7-18); CALCIUM 10.7 mg/dL (8.5-10.1); CREATININE 0.8 mg/dL (0.55-1.3); POTASSIUM 5.1 mmol/L (3.5-5.1); TOT PROT 9.2 g/dl (6.4-8.2)
[2019-05-10] MEDS: DOCUSATE SODIUM 100 MG CAPSULE (FP) PO SCH (10:56)
[2019-05-10] MEDS: DAPTOMYCIN 450 MG in SODIUM CHLORIDE 50 ML IVPB SCH (10:56)
--- NOTE | 2019-05-10 14:22 | PN ---
Progress Note (short form) - Note Progress Note: nephrostomy tube removed on Friday low grade fever overnight now with leukocytosis of 17.8 feels well wants to go home Vital Signs Period Temp Pulse Resp BP Sys/Solano Pulse Ox Last 24 Hr 97.9 F-100.2 F 97-104 19-20 111-114/62-78 98 cor-rrr lungs clear abd soft,nt ext no edema CBC, BMP 05/10/19 08:05 05/10/19 08:05 Microbiology 05/04/19 10:00 Blood - Peripheral Venous Blood Culture - Final NO GROWTH AFTER 5 DAYS INCUBATION 05/04/19 10:15 Blood - Peripheral Venous Blood Culture - Final NO GROWTH AFTER 5 DAYS INCUBATION 04/29/19 20:45 Blood - Peripheral Venous Blood Culture - Final NO GROWTH AFTER 5 DAYS INCUBATION 04/29/19 20:40 Blood - Peripheral Venous Blood Culture - Final NO GROWTH AFTER 5 DAYS INCUBATION 04/30/19 15:00 Abscess Gram Stain - Final 04/30/19 15:00 Abscess Body Fluid Culture - Final Mr S Aureus 04/30/19 15:00 Abscess Anaerobic Culture - Final NO ANAEROBES WERE ISOLATED 04/29/19 20:20 Urine - Urine Clean Catch Urine Culture - Final NO GROWTH OBTAINED a/p MRSA renal abscess- most likely from a transient bacteremia day #7 daptomycin, to continue trend crp follow cpk stat ct scan abd/pelvis to see if abscess has re-accumulated d/w resident Problem List - Problems (1) Left renal mass Code(s): N28.89 - OTHER SPECIFIED DISORDERS OF KIDNEY AND URETER
--- NOTE | 2019-05-10 14:54 | PN ---
Progress Note, Physician History of Present Illness: Pt seen and examined at bedside. He denies fevers or chills. Drain was removed. He is eager to go home. - Current Medication List Current Medications: Active Medications Acetaminophen (Tylenol -) 650 mg PO Q6H PRN PRN Reason: FEVER Last Admin: 05/06/19 18:06 Dose: 650 mg Docusate Sodium (Colace -) 100 mg PO DAILY [facility] Last Admin: 05/10/19 10:56 Dose: 100 mg Heparin Sodium (Porcine) (Heparin -) 5,000 unit SQ TID [facility] Last Admin: 05/10/19 06:04 Dose: Not Given Daptomycin 450 mg/ Sodium (Chloride) 50 mls @ 50 mls/hr IVPB DAILY [facility]; Protocol Last Admin: 05/10/19 10:56 Dose: 50 mls/hr Oxycodone HCl (Roxicodone -) 5 mg PO Q8H PRN PRN Reason: PAIN LEVEL 7 - 10 Last Admin: 05/06/19 23:40 Dose: 5 mg - Objective Vital Signs: Vital Signs Temperature 97.9 F 05/10/19 10:00 Pulse Rate 99 H 05/10/19 10:00 Respiratory Rate 19 05/10/19 10:00 Blood Pressure 114/63 05/10/19 10:00 O2 Sat by Pulse Oximetry (%) 98 05/10/19 09:00 Constitutional: Yes: Calm Eyes: Yes: Conjunctiva Clear HENT: Yes: Atraumatic Neck: Yes: Supple Cardiovascular: Yes: S1, S2 Respiratory: Yes: CTA Bilaterally Gastrointestinal: Yes: Normal Bowel Sounds, Soft Genitourinary: Yes: WNL Musculoskeletal: Yes: WNL Edema: No Neurological: Yes: Oriented Psychiatric: Yes: Oriented Labs: CBC, BMP 05/10/19 08:05 05/10/19 08:05 INR, PTT INR 1.64 (0.83-1.09) H 04/30/19 06:45 Problem List - Problems (1) Murmur Code(s): R01.1 - CARDIAC MURMUR, UNSPECIFIED (2) Flank pain, acute Code(s): R10.9 - UNSPECIFIED ABDOMINAL PAIN (3) Left renal mass Code(s): N28.89 - OTHER SPECIFIED DISORDERS OF KIDNEY AND URETER Assessment/Plan Current Medications Generic Name Dose Route Start Last Admin Trade Name Yuliet PRN Reason Stop Dose Admin Acetaminophen 650 mg 05/02/19 06:44 05/06/19 18:06 Tylenol - PO 650 mg Q6H PRN Administration FEVER Docusate Sodium 100 mg 05/04/19 10:00 05/10/19 10:56 Colace - PO 100 mg DAILY [facility] Administration Heparin Sodium (Porcine) 5,000 unit 05/01/19 14:00 05/10/19 06:04 Heparin - SQ Not Given TID [facility] Daptomycin 450 mg/ Sodium 50 mls @ 50 mls/hr 05/04/19 11:00 05/10/19 10:56 Chloride IVPB 50 mls/hr DAILY [facility] Administration Protocol Oxycodone HCl 5 mg 05/03/19 17:50 05/06/19 23:40 Roxicodone - PO 5 mg Q8H PRN Administration PAIN LEVEL 7 - 10 Impression 1. renal abscess vs mass 2. recent uti 3. heart murmur 4. thrombocytosis Plan - cont abx - ID follow up - will restart fluids - monitor lytes - drain removed - consider heme eval for thrombocytosis
[2019-05-10] MEDS: ACETAMINOPHEN 325 MG TABLET (FP) PO PRN (15:33)
[2019-05-10] MEDS: SODIUM CHLORIDE 1,000 ML IV SCH (15:35)
--- NOTE | 2019-05-10 16:34 | PN ---
Physical Exam: SUBJECTIVE: Patient seen and examined at the bedside, there were no acute events overnight. The patient wants to go home. Overnight has been having low grade fevers but denies feeling feverish/ chills. OBJECTIVE: Vital Signs Period Temp Pulse Resp BP Sys/Solano Pulse Ox Last 24 Hr 97.9 F-100.4 F 97-114 19-22 111-122/62-76 98-98 GENERAL: The patient is awake, alert, and fully oriented, in no acute distress, HEAD: Normal with no signs of trauma. EYES: PERRL, extraocular movements intact, sclera anicteric, conjunctiva clear. No ptosis. ENT: Ears normal, nares patent, oropharynx clear without exudates, moist mucous membranes. NECK: Trachea midline, full range of motion, supple. LUNGS: Breath sounds equal, clear to auscultation bilaterally, no wheezes, no crackles, no accessory muscle use. HEART: Regular rate and rhythm, S1, S2, diastolic murmur heard at LLSB. ABDOMEN: Soft, no tenderness to palpation, nondistended, normoactive bowel sounds, no guarding, no rebound, no CVA tenderness, drain removed dressing with small amount serosanguenous fluid visible on gauze. Otherwise dry and intact. EXTREMITIES: 2+ pulses, warm, well-perfused, no edema. NEUROLOGICAL: Cranial nerves II through XII grossly intact. Normal speech, gait not observed. PSYCH: agitated mood SKIN: Warm, dry, normal turgor, no rashes or lesions noted Laboratory Results - last 24 hr 05/10/19 05/10/19 05/10/19 08:05 08:05 08:05 WBC 17.8 H RBC 4.45 Hgb 13.3 Hct 38.5 MCV 86.6 MCH 29.9 MCHC 34.5 RDW 14.3 Plt Count 800 H MPV 7.5 Absolute Neuts (auto) 14.5 H Neutrophils % 81.5 Lymphocytes % 9.5 D Monocytes % 8.0 Eosinophils % 0.4 Basophils % 0.6 Nucleated RBC % 0 Sodium 132 L Potassium 5.1 Chloride 96 L Carbon Dioxide 28 Anion Gap 7 L BUN 13.5 Creatinine 0.8 Est GFR (CKD-EPI)AfAm 148.00 Est GFR (CKD-EPI)NonAf 127.70 Random Glucose 79 Calcium 10.7 H Total Bilirubin 0.5 AST 21 ALT 13 Alkaline Phosphatase 158 H C-Reactive Protein 12.4 H Total Protein 9.2 H Albumin 3.2 L Active Medications Generic Name Dose Route Start Last Admin Trade Name Yuliet PRN Reason Stop Dose Admin Acetaminophen 650 mg 05/02/19 06:44 05/10/19 15:33 Tylenol - PO 650 mg Q6H PRN Administration FEVER Docusate Sodium 100 mg 05/04/19 10:00 05/10/19 10:56 Colace - PO 100 mg DAILY [facility] Administration Heparin Sodium (Porcine) 5,000 unit 05/01/19 14:00 05/10/19 15:35 Heparin - SQ Not Given TID [facility] Daptomycin 450 mg/ Sodium 50 mls @ 50 mls/hr 05/04/19 11:00 05/10/19 10:56 Chloride IVPB 50 mls/hr DAILY [facility] Administration Protocol Sodium Chloride 1,000 mls @ 75 mls/hr 05/10/19 15:15 05/10/19 15:35 Normal Saline - IV 75 mls/hr ASDIR [facility] Administration Oxycodone HCl 5 mg 05/03/19 17:50 05/06/19 23:40 Roxicodone - PO 5 mg Q8H PRN Administration PAIN LEVEL 7 - 10 Imaging: CT Abd&pelvis w/contrast: There is a 6x6.5x6.9cm complex infiltrative heterogeneous hypovascular mass, possibly multiloculated, in the superior pole of the left kidney. Renal cell carcinoma can have this appearance. There is no clear well-defined peripherally enhancing wall with central fluid cavity to suggest an abscess on the current examination. There is no clear evidence of pyelonephritis in the remaining portions of the left kidney. The left adrenal gland is not clearly identified due to the medial extension of the mass. Right kidney appears normal. CXR - negative for acute pathology ASSESSMENT/PLAN: 19 y/o/m with no PMHx here for abdominal pain, patient told he has a renal abscess at [facility] but signed out AMA and came here. 1- Sepsis most likely 2/2 MRSA renal abscess- most likely from a transient bacteremia, patient still with low grade fevers overnight. - s/p IR drainage, drain removed monday 05/07 - patient still with low grade fevers and WBC increasing to 17.8 today - obtain stat CT abd pelvis with contrast to r/o worsening abscess formation - continue with dapto per ID, day 7 -pain control with ofirmev and oxycodone - ID following, appreciate recommendations, will continue to observe inpatient, - nephrology following, appreciate recommendations - IR following, appreciate recommendations - Resuming NS at 75cc/h 2- Thrombocytosis - reactive - trend with cbcs 3)FEN NS @ 75cc/h replete lytes PRN Regular Diet 4)Prophylaxis -SCDs and heparin sq 5)Disposition -admitted to Med/Surg, will require picc line for extended course of IV antibiotics. Visit type - Emergency Visit Emergency Visit: Yes ED Registration Date: 04/29/19 Care time: The patient presented to the Emergency Department on the above date and was hospitalized for further evaluation of their emergent condition. - New Patient This patient is new to me today: No - Critical Care Critical Care patient: No - Discharge Referral Referred to [facility] Med P.C.: No ATTENDING PHYSICIAN STATEMENT I saw and evaluated the patient. I reviewed the resident's note and discussed the case with the resident. I agree with the resident's findings and plan as documented. SUBJECTIVE: OBJECTIVE: ASSESSMENT AND PLAN:
[2019-05-11] MEDS: HEPARIN NA (PORCINE) 5,000 UNITS/ML 1ML VIAL SQ SCH ×2 (06:18→13:43)
[2019-05-11] MEDS: SODIUM CHLORIDE 1,000 ML IV SCH ×4 (06:23→23:44)
[2019-05-11 08:01] LABS: BASO % 0.4 % (0-2.0); EOS % 0.5 % (0-4.5); HEMATOCRIT 38.6 % (35.4-49); HEMOGLOBIN 12.5 GM/dL (11.7-16.9); LYMPH % 9.8 % (8-40); MCH 28.7 pg (25.7-33.7); MCHC 32.5 g/dl (32.0-35.9); MEAN CELL VOLUME 88.3 fl (80-96); MEAN PLT VOLUME 7.8 fl (7.5-11.1); NEUT % 83.3 % (42.8-82.8); PLATELET COUNT 705 K/MM3 (134-434); RBC 4.37 M/mm3 (4.00-5.60); RDW 14.2 % (11.9-15.9); WHITE BLOOD COUNT 18.6 K/mm3 (4.0-10.0)
[2019-05-11 08:07] LABS: ALBUMIN 2.8 g/dl (3.4-5.0); BILIRUBIN,TOTAL 0.4 mg/dL (0.2-1); BLOOD UREA NITROGEN 13.4 mg/dL (7-18); CALCIUM 9.8 mg/dL (8.5-10.1); CREATININE 0.8 mg/dL (0.55-1.3); POTASSIUM 4.5 mmol/L (3.5-5.1); TOT PROT 8.4 g/dl (6.4-8.2)
[2019-05-11] MEDS: DOCUSATE SODIUM 100 MG CAPSULE (FP) PO SCH (09:25)
[2019-05-11] MEDS: DAPTOMYCIN 450 MG in SODIUM CHLORIDE 50 ML IVPB SCH (10:33)
--- NOTE | 2019-05-11 11:24 | CON.GU ---
Consult Consult Specialty:: Perirenal abscess Referred by:: MEdical service Reason for Consultation:: Left renal abscess - History of Present Illness Chief Complaint: Left flank pain - History Source History Provided By: Patient, Medical Record Limitations to Obtaining History: No Limitations - Past Medical History Renal/: Yes: Other (renal abscess). No: Renal Failure, Renal Inusuff, BPH, Cancer, Hematuria, Hemodialysis, Neurogenic Bladder, Renal Calculi, UTI - Alcohol/Substance Use Hx Alcohol Use: No - Smoking History Smoking history: Never smoked Have you smoked in the past 12 months: Yes Aproximately how many cigarettes per day: 0 If you are a former smoker, when did you quit?: 3 weeks ago Home Medications - Allergies Allergies/Adverse Reactions: Allergies Allergy/AdvReac Type Severity Reaction Status Date / Time No Known Allergies Allergy Verified 04/29/19 21:26 - Home Medications Home Medications: Ambulatory Orders NK [No Known Home Medication] 04/29/19 Physical Exam- Vital Signs: Vital Signs Temperature 98.9 F 05/11/19 10:00 Pulse Rate 96 H 05/11/19 10:00 Respiratory Rate 20 05/11/19 10:00 Blood Pressure 113/57 L 05/11/19 10:00 O2 Sat by Pulse Oximetry (%) 98 05/10/19 21:00 Kidneys: Yes: Flank Pain Left Labs: CBC, BMP 05/11/19 07:20 05/11/19 07:20 Imaging - Results Cat Scan: Report Reviewed, Image Reviewed Problem List - Problems (1) Renal abscess, left Assessment/Plan: Ct evidence of persistent left perirenal 3.7 cm abscess w clinical elevated WBC Would reconsult Dr Landry to replace percutaneous drain Cont IV abx as per ID Code(s): N15.1 - RENAL AND PERINEPHRIC ABSCESS
--- NOTE | 2019-05-11 12:35 | PN ---
Physical Exam: SUBJECTIVE: Patient seen and examined at the bedside, there were no acute events overnight and the patient is feeling well but wbc is still increasing, now 18.6. OBJECTIVE: Vital Signs Period Temp Pulse Resp BP Sys/Solano Pulse Ox Last 24 Hr 98.9 F-100.5 F 92-114 20-22 100-122/57-76 98 GENERAL: The patient is awake, alert, and fully oriented, in no acute distress, HEAD: Normal with no signs of trauma. EYES: PERRL, extraocular movements intact, sclera anicteric, conjunctiva clear. No ptosis. ENT: Ears normal, nares patent, oropharynx clear without exudates, moist mucous membranes. NECK: Trachea midline, full range of motion, supple. LUNGS: Breath sounds equal, clear to auscultation bilaterally, no wheezes, no crackles, no accessory muscle use. HEART: Regular rate and rhythm, S1, S2, diastolic murmur heard at LLSB. ABDOMEN: Soft, no tenderness to palpation, nondistended, normoactive bowel sounds, no guarding, no rebound, no CVA tenderness, drain removed dressing with small amount serosanguenous fluid visible on gauze. Otherwise dry and intact. EXTREMITIES: 2+ pulses, warm, well-perfused, no edema. NEUROLOGICAL: Cranial nerves II through XII grossly intact. Normal speech, gait not observed. PSYCH: agitated mood SKIN: Warm, dry, normal turgor, no rashes or lesions noted Laboratory Results - last 24 hr 05/11/19 05/11/19 05/11/19 07:20 07:20 07:20 WBC 18.6 H RBC 4.37 Hgb 12.5 Hct 38.6 MCV 88.3 MCH 28.7 MCHC 32.5 RDW 14.2 Plt Count 705 H MPV 7.8 Absolute Neuts (auto) 15.5 H Neutrophils % 83.3 H Lymphocytes % 9.8 Monocytes % 6.0 Eosinophils % 0.5 Basophils % 0.4 Nucleated RBC % 0 Sodium 133 L Potassium 4.5 Chloride 100 Carbon Dioxide 26 Anion Gap 7 L BUN 13.4 Creatinine 0.8 Est GFR (CKD-EPI)AfAm 148.00 Est GFR (CKD-EPI)NonAf 127.70 Random Glucose 125 H Calcium 9.8 Total Bilirubin 0.4 AST 26 ALT 12 L Alkaline Phosphatase 150 H Creatine Kinase 31 C-Reactive Protein 14.2 H Total Protein 8.4 H Albumin 2.8 L Active Medications Generic Name Dose Route Start Last Admin Trade Name Freq PRN Reason Stop Dose Admin Acetaminophen 650 mg 05/02/19 06:44 05/10/19 15:33 Tylenol - PO 650 mg Q6H PRN Administration FEVER Docusate Sodium 100 mg 05/04/19 10:00 05/11/19 09:25 Colace - PO Not Given DAILY [facility] Heparin Sodium (Porcine) 5,000 unit 05/01/19 14:00 05/11/19 06:18 Heparin - SQ Not Given TID [facility] Daptomycin 450 mg/ Sodium 50 mls @ 50 mls/hr 05/04/19 11:00 05/11/19 10:33 Chloride IVPB 50 mls/hr DAILY [facility] Administration Protocol Sodium Chloride 1,000 mls @ 150 mls/hr 05/11/19 08:58 05/11/19 09:26 Normal Saline - IV 150 mls/hr ASDIR [facility] Administration Oxycodone HCl 5 mg 05/03/19 17:50 05/06/19 23:40 Roxicodone - PO 5 mg Q8H PRN Administration PAIN LEVEL 7 - 10 Imaging: CT Abd&pelvis w/contrast: There is a 6x6.5x6.9cm complex infiltrative heterogeneous hypovascular mass, possibly multiloculated, in the superior pole of the left kidney. Renal cell carcinoma can have this appearance. There is no clear well-defined peripherally enhancing wall with central fluid cavity to suggest an abscess on the current examination. There is no clear evidence of pyelonephritis in the remaining portions of the left kidney. The left adrenal gland is not clearly identified due to the medial extension of the mass. Right kidney appears normal. CXR - negative for acute pathology CT abd/ pelvis 05/10: a left psoas/ renal abcess in comparison to the previous CT. There was a persistent 3.7x3.3cm L renal upper pole abcess consisting of soft tissue thickening and multiple small multiloculated fluid foci. There was also a small abcess cavity which was not seen previously, within the adjacent left psoas muscle. ASSESSMENT/PLAN: 19 y/o/m with no PMHx here for abdominal pain, patient told he has a renal abscess at [facility] but signed out AMA and came here. 1- Sepsis most likely 2/2 MRSA renal abscess- most likely from a transient bacteremia, patient still with low grade fevers overnight. - s/p IR drainage, drain removed monday 05/07 - patient still with low grade fevers and WBC increasing to 18.6 today - newest CT abd/ pelvis showing: a left psoas/ renal abcess in comparison to the previous CT. There was a persistent 3.7x3.3cm L renal upper pole abcess consisting of soft tissue thickening and multiple small multiloculated fluid foci. There was also a small abcess cavity which was not seen previously, within the adjacent left psoas muscle. - continue with dapto per ID, day 8 - add zosyn per ID - Discussed with IR, although there is no pocket large enough for drain placement they will aspirate the largest fluid collection and resent for sultures - Urology also assessed patient today and feels that partial nephrectomy should be reserved for absolute last resort, will proceed by aspirating the largest fluid collection and sending for culture, repeating blood cultures, and broadening antibiotic coverage. Will also reach out to [facility] to set up potential transfer incase this patient requires higher level of care. -pain control with ofirmev and oxycodone - ID following, appreciate recommendations, will continue to observe inpatient, - nephrology following, appreciate recommendations - IR following, appreciate recommendations - NS at 75cc/h 2- Thrombocytosis - reactive - trend with cbcs 3)FEN NS @ 75cc/h replete lytes PRN Regular Diet 4)Prophylaxis -SCDs and heparin sq 5)Disposition -admitted to Med/Surg, will require picc line for extended course of IV antibiotics. Visit type - Emergency Visit Emergency Visit: Yes ED Registration Date: 04/29/19 Care time: The patient presented to the Emergency Department on the above date and was hospitalized for further evaluation of their emergent condition. - New Patient This patient is new to me today: No - Critical Care Critical Care patient: No - Discharge Referral Referred to [facility] Med P.C.: No ATTENDING PHYSICIAN STATEMENT I saw and evaluated the patient. I reviewed the resident's note and discussed the case with the resident. I agree with the resident's findings and plan as documented. SUBJECTIVE: OBJECTIVE: ASSESSMENT AND PLAN:
--- NOTE | 2019-05-11 15:08 | PN ---
Progress Note, Physician History of Present Illness: Pt seen and examined at bedside. He is awake and alert. He is agitated that he is in the hospital. I calmed him down and urged him not to sign out AMA. - Current Medication List Current Medications: Active Medications Acetaminophen (Tylenol -) 650 mg PO Q6H PRN PRN Reason: FEVER Last Admin: 05/10/19 15:33 Dose: 650 mg Docusate Sodium (Colace -) 100 mg PO DAILY [facility] Last Admin: 05/11/19 09:25 Dose: Not Given Heparin Sodium (Porcine) (Heparin -) 5,000 unit SQ TID [facility] Last Admin: 05/11/19 13:43 Dose: Not Given Daptomycin 450 mg/ Sodium (Chloride) 50 mls @ 50 mls/hr IVPB DAILY [facility]; Protocol Last Admin: 05/11/19 10:33 Dose: 50 mls/hr Sodium Chloride (Normal Saline -) 1,000 mls @ 150 mls/hr IV ASDIR [facility] Last Admin: 05/11/19 09:26 Dose: 150 mls/hr Oxycodone HCl (Roxicodone -) 5 mg PO Q8H PRN PRN Reason: PAIN LEVEL 7 - 10 Last Admin: 05/06/19 23:40 Dose: 5 mg - Objective Vital Signs: Vital Signs Temperature 98.9 F 05/11/19 10:00 Pulse Rate 96 H 05/11/19 10:00 Respiratory Rate 20 05/11/19 10:00 Blood Pressure 113/57 L 05/11/19 10:00 O2 Sat by Pulse Oximetry (%) 96 05/11/19 09:00 Constitutional: Yes: Calm Eyes: Yes: Conjunctiva Clear HENT: Yes: Atraumatic Neck: Yes: Supple Cardiovascular: Yes: S1, S2 Respiratory: Yes: CTA Bilaterally Gastrointestinal: Yes: Soft Genitourinary: Yes: WNL Musculoskeletal: Yes: WNL Edema: No Integumentary: Yes: Tattoos Neurological: Yes: Oriented Psychiatric: Yes: Oriented Labs: CBC, BMP 05/11/19 07:20 05/11/19 07:20 INR, PTT INR 1.64 (0.83-1.09) H 04/30/19 06:45 Problem List - Problems (1) Murmur Code(s): R01.1 - CARDIAC MURMUR, UNSPECIFIED (2) Flank pain, acute Code(s): R10.9 - UNSPECIFIED ABDOMINAL PAIN (3) Left renal mass Code(s): N28.89 - OTHER SPECIFIED DISORDERS OF KIDNEY AND URETER Assessment/Plan Current Medications Generic Name Dose Route Start Last Admin Trade Name Freq PRN Reason Stop Dose Admin Acetaminophen 650 mg 05/02/19 06:44 05/10/19 15:33 Tylenol - PO 650 mg Q6H PRN Administration FEVER Docusate Sodium 100 mg 05/04/19 10:00 05/11/19 09:25 Colace - PO Not Given DAILY [facility] Heparin Sodium (Porcine) 5,000 unit 05/01/19 14:00 05/11/19 13:43 Heparin - SQ Not Given TID [facility] Daptomycin 450 mg/ Sodium 50 mls @ 50 mls/hr 05/04/19 11:00 05/11/19 10:33 Chloride IVPB 50 mls/hr DAILY [facility] Administration Protocol Sodium Chloride 1,000 mls @ 150 mls/hr 05/11/19 08:58 05/11/19 09:26 Normal Saline - IV 150 mls/hr ASDIR [facility] Administration Oxycodone HCl 5 mg 05/03/19 17:50 05/06/19 23:40 Roxicodone - PO 5 mg Q8H PRN Administration PAIN LEVEL 7 - 10 Impression 1. renal abscess vs mass 2. recent uti 3. heart murmur 4. thrombocytosis 5. pyelonephritis Plan - wbc is rising and he did spike a fever - abx per ID - called urology and IR, they will discuss further management together as far as any intervention - can cont fluids as his bp was low - monitor vitals - spoke to pt at length and do not recommend that he leaves AMA - consider heme eval for thrombocytosis
[2019-05-11] MEDS: ACETAMINOPHEN 325 MG TABLET (FP) PO PRN (15:12)
--- NOTE | 2019-05-11 15:58 | PN ---
Progress Note (short form) - Note Progress Note: has had fevers since drain was d/clarice on Friday just had fever to 101.5 ct scan from yesterday d/w IR radiologist Dr Vega- multiple small abscesses- does not feel he can place a drain can aspirate the largest collection for culture and micro d/w Dr Rutherford- feels he should continue medical management as the only other option is partial nephrectomy d/w the patient and significant other at bedside Vital Signs Period Temp Pulse Resp BP Sys/Solano Pulse Ox Last 24 Hr 98.9 F-101.5 F 92-114 18-22 100-142/49-76 96-98 cor-rrr llungs clear abd soft,nt ext no edema no stigmata of endocarditis CBC, BMP 05/11/19 07:20 05/11/19 07:20 Microbiology 05/04/19 10:00 Blood - Peripheral Venous Blood Culture - Final NO GROWTH AFTER 5 DAYS INCUBATION 05/04/19 10:15 Blood - Peripheral Venous Blood Culture - Final NO GROWTH AFTER 5 DAYS INCUBATION 04/29/19 20:45 Blood - Peripheral Venous Blood Culture - Final NO GROWTH AFTER 5 DAYS INCUBATION 04/29/19 20:40 Blood - Peripheral Venous Blood Culture - Final NO GROWTH AFTER 5 DAYS INCUBATION 04/30/19 15:00 Abscess Gram Stain - Final 04/30/19 15:00 Abscess Body Fluid Culture - Final Mr S Aureus 04/30/19 15:00 Abscess Anaerobic Culture - Final NO ANAEROBES WERE ISOLATED 04/29/19 20:20 Urine - Urine Clean Catch Urine Culture - Final NO GROWTH OBTAINED a/p MRSA renal abscess- most likely from a transient bacteremia day #8 daptomycin, will repeat blood cultures and add empiric zosyn suspect fevers are due to lack of drainage of abscess as patient has started having fevers after drain was removed last week he will go for aspiration for repeat culture plan in process for possible transfer to tertiary care center in the hopes they can offer more aggressive drainage of the kidney sbscess patient is agreeable with this plan d/w hospitalist, urologist and radiologist 45 minutes spent in the care of this patient Problem List - Problems (1) Left renal mass Code(s): N28.89 - OTHER SPECIFIED DISORDERS OF KIDNEY AND URETER
[2019-05-11] MEDS ORDERED: PIPERACILLIN/TAZOB 4.5 GM 4.5 GM in DEXTROSE 5%-WATER 100 ML IVPB SCH (16:00)
[2019-05-11 16:07] LABS: TOTAL PROTEIN, URINE 10.6 mg/dL (Not Estab.)
[2019-05-11] MEDS ORDERED: PIPERACILLIN/TAZOBACTAM 4.5 GM VIAL IVPB ONE (16:55)
[2019-05-11] MEDS ORDERED: DEXTROSE 5%-WATER 100 ML IVPB ONE (16:55)
[2019-05-11] MEDS: oxyCODONE HCL 5 MG TABLET PO PRN (17:20)
--- NOTE | 2019-05-11 17:58 | DS ---
Physical Exam: SUBJECTIVE: Patient seen and examined at the bedside, there were no acute events overnight and the patient is feeling well but wbc is still increasing, now 18.6. OBJECTIVE: Vital Signs Period Temp Pulse Resp BP Sys/Solano Pulse Ox Last 24 Hr 98.9 F-101.5 F 92-103 18-22 100-142/49-73 96-98 PHYSICAL EXAM GENERAL: The patient is awake, alert, and fully oriented, in no acute distress, HEAD: Normal with no signs of trauma. EYES: PERRL, extraocular movements intact, sclera anicteric, conjunctiva clear. No ptosis. ENT: Ears normal, nares patent, oropharynx clear without exudates, moist mucous membranes. NECK: Trachea midline, full range of motion, supple. LUNGS: Breath sounds equal, clear to auscultation bilaterally, no wheezes, no crackles, no accessory muscle use. HEART: Regular rate and rhythm, S1, S2, diastolic murmur heard at LLSB. ABDOMEN: Soft, no tenderness to palpation, nondistended, normoactive bowel sounds, no guarding, no rebound, no CVA tenderness, drain removed dressing with small amount serosanguenous fluid visible on gauze. Otherwise dry and intact. EXTREMITIES: 2+ pulses, warm, well-perfused, no edema. NEUROLOGICAL: Cranial nerves II through XII grossly intact. Normal speech, gait not observed. PSYCH: agitated mood SKIN: Warm, dry, normal turgor, no rashes or lesions noted LABS Laboratory Results - last 24 hr 05/07/19 05/11/19 05/11/19 12:00 07:20 07:20 WBC 18.6 H RBC 4.37 Hgb 12.5 Hct 38.6 MCV 88.3 MCH 28.7 MCHC 32.5 RDW 14.2 Plt Count 705 H MPV 7.8 Absolute Neuts (auto) 15.5 H Neutrophils % 83.3 H Lymphocytes % 9.8 Monocytes % 6.0 Eosinophils % 0.5 Basophils % 0.4 Nucleated RBC % 0 Sodium 133 L Potassium 4.5 Chloride 100 Carbon Dioxide 26 Anion Gap 7 L BUN 13.4 Creatinine 0.8 Est GFR (CKD-EPI)AfAm 148.00 Est GFR (CKD-EPI)NonAf 127.70 Random Glucose 125 H Calcium 9.8 Total Bilirubin 0.4 AST 26 ALT 12 L Alkaline Phosphatase 150 H Creatine Kinase 31 C-Reactive Protein Total Protein 8.4 H Albumin 2.8 L Pcban-8-Mphcbqlph (%) 3.6 Jhwjy-9-Tzymrrwnf (%) 21.3 Beta Globulins (%) 24.0 Gamma Globulins (%) 36.9 M-Josias % Comment: Urine Total Protein 10.6 Urine PEP Interpret 14.2 Ref Test Comments 05/11/19 07:20 WBC RBC Hgb Hct MCV MCH MCHC RDW Plt Count MPV Absolute Neuts (auto) Neutrophils % Lymphocytes % Monocytes % Eosinophils % Basophils % Nucleated RBC % Sodium Potassium Chloride Carbon Dioxide Anion Gap BUN Creatinine Est GFR (CKD-EPI)AfAm Est GFR (CKD-EPI)NonAf Random Glucose Calcium Total Bilirubin AST ALT Alkaline Phosphatase Creatine Kinase C-Reactive Protein 14.2 H Total Protein Albumin Bbadm-0-Yaamfelxy (%) Hhifq-9-Akubeoxbz (%) Beta Globulins (%) Gamma Globulins (%) M-Josias % Urine Total Protein Urine PEP Interpret Ref Test Comments HOSPITAL COURSE: Date of Admission:04/29/19 Mr. Baptiste is a 19 year old man with no PMHx who presented to the ED with abdominal pain. Prior to arrival at [facility] the patient was told he had a renal abscess at [facility] but signed out AMA and came here. Workup included CT abdomen and pelvis which revealed a 6x6.5x6.9cm complex infiltrative heterogeneous hypovascular mass, multiloculated, in the superior pole of the left kidney without a clear well-defined peripherally enhancing wall with central fluid cavity to suggest an abscess. There was no clear evidence of pyelonephritis in the remaining portions of the left kidney. Right kidney appeared normal. IR placed a YOLIE drain which drained a small amount of serosangunous fluid. The patient was also started on vancomycin, however an acceptable vanc trough was unable to be reached despite increasing doses and the patient was switched to daptomycin. The patient had the drain in place for 1 week. In that time it was adjusted for repositioning once. The patient appeared to clinically improve and after 1 week it was fully removed. Once the drain was removed the patient stated he felt better however it was noted that the patient was having low grade fevers and the wbc continued to drift up. After 3 days the patient had a repeat abd/ pelvis CT with contrast which revealed a left psoas/ renal abcess in comparison to the previous CT. There was a persistent 3.7x3.3cm L renal upper pole abcess consisting of soft tissue thickening and multiple small multiloculated fluid foci. There was also a small abcess cavity which was not seen previously, within the adjacent left psoas muscle. IR and urology were both consulted at this point. IR felt it was not appropriate to place a drain at this time as the abcess is multiloculated and there was no clear fluid pocket large enough to place a drain. Urology felt that the only intervention they could provide would be a partial nephrectomy which they felt should only be used as a last resort given the patient's age and otherwise completely normal work up. ID agreed to broaden the coverage of antibiotics and added zosyn. We reached out to [facility] for transfer as it was felt the patient potentially needed a higher level of care than could be provided here. Date of Discharge: 05/11/19 Minutes to complete discharge: 40 Discharge Summary Problems reviewed: Yes Reason For Visit: MASS OF LEFT KIDEY, SEPSIS Current Active Problems Flank pain, acute (Acute) Left renal mass (Acute) Murmur (Acute) Renal abscess, left (Acute) Sepsis (Acute) Condition: Improved - Instructions Diet, Activity, Other Instructions: You came in for abdominal pain after being seen at [facility] and given a dose of antibiotics. We imaged your abdomen and you were found to have a mass on your left kidney. We drained the mass and it was determined to be an abscess( infected collection of pus). We took cultures from the abscess and you were found to be growing Methicillin Resistant Staphlococcus Aureus (MRSA). We tested you for HIV and you were found to be negative. We started you on IV antibiotics (Daptomycin), you will likely need to continue for at least 4 weeks. Please follow up with your Infectious Disease doctor for further management of your antibiotics. Please follow up with your PCP, Dr. Cabral within 1 week. Please follow up with you Infectious Disease Doctor, Dr. Finley within 1 week. You will need weekly blood work to monitor your kidney function as you receive your antibiotics. Please follow up with your [employer], Dr. Marcial within 1 week. Hospital Course: Mr. Baptiste is a 19 year old man with no PMHx who presented to the ED with abdominal pain. Prior to arrival at [facility] the patient was told he had a renal abscess at [facility] but signed out AMA and came here. Workup included CT abdomen and pelvis which revealed a 6x6.5x6.9cm complex infiltrative heterogeneous hypovascular mass, multiloculated, in the superior pole of the left kidney without a clear well-defined peripherally enhancing wall with central fluid cavity to suggest an abscess. There was no clear evidence of pyelonephritis in the remaining portions of the left kidney. Right kidney appeared normal. IR placed a YOLIE drain which drained a small amount of serosangunous fluid. The patient was also started on vancomycin, however an acceptable vanc trough was unable to be reached despite increasing doses and the patient was switched to daptomycin. The patient had the drain in place for 1 week. In that time it was adjusted for repositioning once. The patient appeared to clinically improve and after 1 week it was fully removed. Once the drain was removed the patient stated he felt better however it was noted that the patient was having low grade fevers and the wbc continued to drift up. After 3 days the patient had a repeat abd/ pelvis CT with contrast which revealed a left psoas/ renal abcess in comparison to the previous CT. There was a persistent 3.7x3.3cm L renal upper pole abcess consisting of soft tissue thickening and multiple small multiloculated fluid foci. There was also a small abcess cavity which was not seen previously, within the adjacent left psoas muscle. IR and urology were both consulted at this point. IR felt it was not appropriate to place a drain at this time as the abcess is multiloculated and there was no clear fluid pocket large enough to place a drain. Urology felt that the only intervention they could provide would be a partial nephrectomy which they felt should only be used as a last resort given the patient's age and otherwise completely normal work up. ID agreed to broaden the coverage of antibiotics and added zosyn. We reached out to [facility] for transfer as it was felt the patient potentially needed a higher level of care than could be provided here. Referrals: Lima Finley MD [Staff Physician] - 1 Week Michelle Cabral MD [Staff Physician] - 1 Week Ga Marcial MD [Staff Physician] - 1 Week Disposition: HOME - Home Medications Comprehensive Discharge Medication List: Ambulatory Orders NK [No Known Home Medication] 04/29/19 This patient is new to me today: No Emergency Visit: No Critical Care patient: No - Discharge Referral Referred to [facility] Med P.C.: No ATTENDING PHYSICIAN STATEMENT I saw and evaluated the patient. I reviewed the resident's note and discussed the case with the resident. I agree with the resident's findings and plan as documented. SUBJECTIVE: OBJECTIVE: ASSESSMENT AND PLAN:
--- NOTE | 2019-05-11 21:51 | PN ---
Teaching Attending Note Name of Resident: Gracie Harden ATTENDING PHYSICIAN STATEMENT I saw and evaluated the patient. I reviewed the resident's note and discussed the case with the resident. I agree with the resident's findings and plan as documented. SUBJECTIVE: Patient had a fever of 101.5 today s/p a loculated abscess OBJECTIVE: Vital Signs Temperature 97.2 F L 05/11/19 18:00 Pulse Rate 105 H 05/11/19 18:00 Respiratory Rate 18 05/11/19 18:00 Blood Pressure 113/65 05/11/19 18:00 O2 Sat by Pulse Oximetry (%) 96 05/11/19 09:00 GENERAL: The patient is awake, alert, and fully oriented, in no acute distress. HEAD: Normal with no signs of trauma. EYES: PERRL, extraocular movements intact, sclera anicteric, conjunctiva clear. ENT: Ears normal, oropharynx clear without exudates, moist mucous membranes. NECK: Trachea midline, full range of motion, supple. LUNGS: Breath sounds equal, clear to auscultation bilaterally, no wheezes, no crackles, no accessory muscle use. HEART: Regular rate and rhythm, S1, S2 without murmur, rub or gallop. ABDOMEN: Soft, NT,ND, normoactive bowel sounds, no guarding, no rebound, no hepatosplenomegaly, no masses. drainage is pulled out on friday EXTREMITIES: 2+ pulses, warm, well-perfused, no edema. NEUROLOGICAL: Cranial nerves II through XII grossly intact. Normal speech, gait not observed. PSYCH: Normal mood, normal affect. SKIN: Warm, dry, normal turgor, no rashes or lesions noted CBCD WBC 18.6 K/mm3 (4.0-10.0) H 05/11/19 07:20 RBC 4.37 M/mm3 (4.00-5.60) 05/11/19 07:20 Hgb 12.5 GM/dL (11.7-16.9) 05/11/19 07:20 Hct 38.6 % (35.4-49) 05/11/19 07:20 MCV 88.3 fl (80-96) 05/11/19 07:20 MCHC 32.5 g/dl (32.0-35.9) 05/11/19 07:20 RDW 14.2 % (11.9-15.9) 05/11/19 07:20 Plt Count 705 K/MM3 (134-434) H 05/11/19 07:20 MPV 7.8 fl (7.5-11.1) 05/11/19 07:20 CMP Sodium 133 mmol/L (136-145) L 05/11/19 07:20 Potassium 4.5 mmol/L (3.5-5.1) 05/11/19 07:20 Chloride 100 mmol/L (98-107) 05/11/19 07:20 Carbon Dioxide 26 mmol/L (21-32) 05/11/19 07:20 Anion Gap 7 MMOL/L (8-16) L 05/11/19 07:20 BUN 13.4 mg/dL (7-18) 05/11/19 07:20 Creatinine 0.8 mg/dL (0.55-1.3) 05/11/19 07:20 Random Glucose 125 mg/dL (74-106) H 05/11/19 07:20 Calcium 9.8 mg/dL (8.5-10.1) 05/11/19 07:20 Total Bilirubin 0.4 mg/dL (0.2-1) 05/11/19 07:20 AST 26 U/L (15-37) 05/11/19 07:20 ALT 12 U/L (13-61) L 05/11/19 07:20 Alkaline Phosphatase 150 U/L (45-117) H 05/11/19 07:20 Total Protein 8.4 g/dl (6.4-8.2) H 05/11/19 07:20 Albumin 2.8 g/dl (3.4-5.0) L 05/11/19 07:20 CARDIAC ENZYMES Creatine Kinase 31 U/L (26-308) 05/11/19 07:20 Current Medications Generic Name Dose Route Start Last Admin Trade Name Freq PRN Reason Stop Dose Admin Acetaminophen 650 mg 05/02/19 06:44 05/11/19 15:12 Tylenol - PO 650 mg Q6H PRN Administration FEVER Docusate Sodium 100 mg 05/04/19 10:00 05/11/19 09:25 Colace - PO Not Given DAILY [facility] Daptomycin 450 mg/ Sodium 50 mls @ 50 mls/hr 05/04/19 11:00 05/11/19 10:33 Chloride IVPB 50 mls/hr DAILY [facility] Administration Protocol Sodium Chloride 1,000 mls @ 150 mls/hr 05/11/19 08:58 05/11/19 15:24 Normal Saline - IV 150 mls/hr ASDIR T[facility] Administration Piperacillin Sod/Tazobactam 100 mls @ 200 mls/hr 05/12/19 02:00 Sod 4.5 gm/ Dextrose IVPB Q8H-IV [facility] Protocol Oxycodone HCl 5 mg 05/03/19 17:50 05/11/19 17:20 Roxicodone - PO 5 mg Q8H PRN Administration PAIN LEVEL 7 - 10 Home Medications Medication Instructions Recorded NK [No Known Home Medication] 04/29/19 05/04/19 10:00 Blood - Peripheral Venous Blood Culture - Final NO GROWTH AFTER 5 DAYS INCUBATION 05/04/19 10:15 Blood - Peripheral Venous Blood Culture - Final NO GROWTH AFTER 5 DAYS INCUBATION 04/29/19 20:45 Blood - Peripheral Venous Blood Culture - Final NO GROWTH AFTER 5 DAYS INCUBATION 04/29/19 20:40 Blood - Peripheral Venous Blood Culture - Final NO GROWTH AFTER 5 DAYS INCUBATION 04/30/19 15:00 Abscess Gram Stain - Final 04/30/19 15:00 Abscess Body Fluid Culture - Final Mr S Aureus 04/30/19 15:00 Abscess Anaerobic Culture - Final NO ANAEROBES WERE ISOLATED 04/29/19 20:20 Urine - Urine Clean Catch Urine Culture - Final NO GROWTH OBTAINED ASSESSMENT AND PLAN: Patient is a 19y/o male presented with L renal infection /abscess in [facility] 2 days ago, who presented to [facility] after leaving [place] . # Left renal MRSA abscess s/p IR drainage , Hemal drainage is pulled out, cytology as above , continue Daptomycin day#8 today as per ID . HIV is negative , SPEP/UPEP is negative . CRP is 12.[address] a loculated abscess of 1.5cm , s/p IR procedure today with minimal amount for cx was send since its loculated and unable to drian further. patient is accepted to [email or web address] we are not equiped to tx this patient's abscess as per IR and urologist , therfore needs to be transfered to [facility] #Thrombocytosis:reactive, continues to be elevated DVT: SCDs ,and heparin SQ MRSA renal abscess- most likely from a transient bacteremia d/w ID, urologist and radiologist Transfer patient to [facility]
[2019-05-12] MEDS ORDERED: PIPERACILLIN/TAZOBACTAM 4.5 GM VIAL IVPB ONE (00:26)
[2019-05-12] MEDS ORDERED: DEXTROSE 5%-WATER 100 ML IVPB ONE (00:26)
[2019-05-12] MEDS: ACETAMINOPHEN 325 MG TABLET (FP) PO PRN ×2 (00:27→21:58)
[2019-05-12] MEDS: oxyCODONE HCL 5 MG TABLET PO PRN (01:04)
[2019-05-12] MEDS ORDERED: PIPERACILLIN/TAZOB 4.5 GM 4.5 GM in DEXTROSE 5%-WATER 100 ML IVPB SCH (02:00)
[2019-05-12] MEDS: SODIUM CHLORIDE 1,000 ML IV SCH ×2 (06:50→15:45)
[2019-05-12 08:11] LABS: BASO % 0.5 % (0-2.0); EOS % 0.7 % (0-4.5); HEMATOCRIT 32.9 % (35.4-49); LYMPH % 10.2 % (8-40); MCH 29.2 pg (25.7-33.7); MCHC 33.3 g/dl (32.0-35.9); MEAN CELL VOLUME 87.6 fl (80-96); MEAN PLT VOLUME 7.7 fl (7.5-11.1); MONO % 8.9 % (3.8-10.2); NEUT % 79.7 % (42.8-82.8); PLATELET COUNT 590 K/MM3 (134-434); RBC 3.76 M/mm3 (4.00-5.60); RDW 14.5 % (11.9-15.9)
[2019-05-12 08:30] LABS: ALBUMIN 2.5 g/dl (3.4-5.0); BILIRUBIN,TOTAL 0.7 mg/dL (0.2-1); BLOOD UREA NITROGEN 9.3 mg/dL (7-18); CALCIUM 9.2 mg/dL (8.5-10.1); CREATININE 0.7 mg/dL (0.55-1.3); POTASSIUM 4.4 mmol/L (3.5-5.1); TOT PROT 7.5 g/dl (6.4-8.2)
[2019-05-12] MEDS: DAPTOMYCIN 450 MG in SODIUM CHLORIDE 50 ML IVPB SCH (10:46)
[2019-05-12] MEDS: DOCUSATE SODIUM 100 MG CAPSULE (FP) PO SCH (10:46)
[2019-05-12] MEDS: CEFTAROLINE FOSAMIL ACETATE 600 MG in DEXTROSE 5%-WATER - 100 ML IVPB SCH ×2 (10:47→19:00)
--- NOTE | 2019-05-12 11:51 | PN ---
Progress Note (short form) - Note Progress Note: has had fevers since drain was d/clarice on Friday low grade fever 1.5 cc aspirated- gram stain GPC clusters, +WBC Vital Signs Period Temp Pulse Resp BP Sys/Solano Pulse Ox Last 24 Hr 97.2 F-101.5 F 93-105 16-18 108-151/49-72 cor-rrr lungs clear abd soft,nt ext no edema CBC, BMP 05/12/19 07:30 05/12/19 07:30 Microbiology 05/11/19 16:30 Abscess Gram Stain - Final 05/04/19 10:00 Blood - Peripheral Venous Blood Culture - Final NO GROWTH AFTER 5 DAYS INCUBATION 05/04/19 10:15 Blood - Peripheral Venous Blood Culture - Final NO GROWTH AFTER 5 DAYS INCUBATION 04/29/19 20:45 Blood - Peripheral Venous Blood Culture - Final NO GROWTH AFTER 5 DAYS INCUBATION 04/29/19 20:40 Blood - Peripheral Venous Blood Culture - Final NO GROWTH AFTER 5 DAYS INCUBATION 04/30/19 15:00 Abscess Gram Stain - Final 04/30/19 15:00 Abscess Body Fluid Culture - Final Mr S Aureus 04/30/19 15:00 Abscess Anaerobic Culture - Final NO ANAEROBES WERE ISOLATED 04/29/19 20:20 Urine - Urine Clean Catch Urine Culture - Final NO GROWTH OBTAINED a/p MRSA renal abscess- most likely from a transient bacteremia day #9 daptomycin, will repeat blood cultures pending add ceftaroline (second MRSA drug) suspect this is more a function of inablity to drain the abscesses as fevers/ leukocytosis recurred after drain was pulled plan in process for possible transfer to tertiary care center in the hopes they can offer more aggressive drainage of the kidney abscess- he refused to go to [facility] last night- wants to know if he can go to [facility] instead Problem List - Problems (1) Left renal mass Code(s): N28.89 - OTHER SPECIFIED DISORDERS OF KIDNEY AND URETER
--- NOTE | 2019-05-12 13:10 | PN ---
Progress Note, Physician History of Present Illness: Pt seen and examined at bedside. He is awake and alert. He refused to go to [facility] yesterday. He denies fevers or chills. He is agitated that he is in the hospital. - Current Medication List Current Medications: Active Medications Acetaminophen (Tylenol -) 650 mg PO Q6H PRN PRN Reason: FEVER Last Admin: 05/12/19 00:27 Dose: 650 mg Docusate Sodium (Colace -) 100 mg PO DAILY TYSON Last Admin: 05/12/19 10:46 Dose: 100 mg Daptomycin 450 mg/ Sodium (Chloride) 50 mls @ 50 mls/hr IVPB DAILY TYSON; Protocol Last Admin: 05/12/19 10:46 Dose: 50 mls/hr Sodium Chloride (Normal Saline -) 1,000 mls @ 150 mls/hr IV ASDIR TYSON Last Admin: 05/12/19 06:50 Dose: 150 mls/hr Ceftaroline Fosamil 600 mg/ (Dextrose) 100 mls @ 100 mls/hr IVPB Q8H-IV TYSON; Protocol Last Admin: 05/12/19 10:47 Dose: 100 mls/hr Oxycodone HCl (Roxicodone -) 5 mg PO Q8H PRN PRN Reason: PAIN LEVEL 7 - 10 Last Admin: 05/12/19 01:04 Dose: 5 mg - Objective Vital Signs: Vital Signs Temperature 99.5 F 05/12/19 10:00 Pulse Rate 96 H 05/12/19 10:00 Respiratory Rate 16 05/12/19 10:00 Blood Pressure 132/54 L 05/12/19 10:00 O2 Sat by Pulse Oximetry (%) 96 05/11/19 09:00 Constitutional: Yes: Anxious Eyes: Yes: Conjunctiva Clear HENT: Yes: Atraumatic Neck: Yes: Supple Cardiovascular: Yes: S1, S2 Respiratory: Yes: CTA Bilaterally Gastrointestinal: Yes: Soft Genitourinary: Yes: WNL Musculoskeletal: Yes: WNL Edema: No Neurological: Yes: Oriented Psychiatric: Yes: Oriented Labs: CBC, BMP 05/12/19 07:30 05/12/19 07:30 INR, PTT INR 1.64 (0.83-1.09) H 04/30/19 06:45 Problem List - Problems (1) Murmur Code(s): R01.1 - CARDIAC MURMUR, UNSPECIFIED (2) Flank pain, acute Code(s): R10.9 - UNSPECIFIED ABDOMINAL PAIN (3) Left renal mass Code(s): N28.89 - OTHER SPECIFIED DISORDERS OF KIDNEY AND URETER Assessment/Plan Current Medications Generic Name Dose Route Start Last Admin Trade Name Freq PRN Reason Stop Dose Admin Acetaminophen 650 mg 05/02/19 06:44 05/12/19 00:27 Tylenol - PO 650 mg Q6H PRN Administration FEVER Docusate Sodium 100 mg 05/04/19 10:00 05/12/19 10:46 Colace - PO 100 mg DAILY TYSON Administration Daptomycin 450 mg/ Sodium 50 mls @ 50 mls/hr 05/04/19 11:00 05/12/19 10:46 Chloride IVPB 50 mls/hr DAILY TYSON Administration Protocol Sodium Chloride 1,000 mls @ 150 mls/hr 05/11/19 08:58 05/12/19 06:50 Normal Saline - IV 150 mls/hr ASDIR TYSON Administration Ceftaroline Fosamil 600 mg/ 100 mls @ 100 mls/hr 05/12/19 10:00 05/12/19 10: 47 Dextrose IVPB 100 mls/hr Q8H-IV TYSON Administration Protocol Oxycodone HCl 5 mg 05/03/19 17:50 05/12/19 01:04 Roxicodone - PO 5 mg Q8H PRN Administration PAIN LEVEL 7 - 10 Impression 1. renal abscess vs mass 2. recent uti 3. heart murmur 4. thrombocytosis 5. pyelonephritis Plan - follow cultures - discussed with urology, Dr Rutherford will see pt and discuss treatment options today - renal function is stable - abx per ID - platelets improving
--- NOTE | 2019-05-12 15:13 | CONSULT ---
Consult - text type - Consultation Consultation Note: Discussed case with other physicians involved including IR Recommend conservative tx at this time as based on location being medial upper polr infection down to just above vesselsoperative procedure will very likely be impossible to perform partial nephectomy as active infection is associated with inflammation in the area Would exhaust all possibilitiesshort of surgical option Risks discussed w pt who understands (but is not pleased) all options at this time All questions answered
[2019-05-12] MEDS ORDERED: PT OWN MED DRAWER 7, Y5N ONE (17:28)
--- NOTE | 2019-05-12 18:48 | PN ---
Teaching Attending Note Name of Resident: Mathew Barry ATTENDING PHYSICIAN STATEMENT I saw and evaluated the patient. I reviewed the resident's note and discussed the case with the resident. I agree with the resident's findings and plan as documented. SUBJECTIVE: No fever or chills . no pain OBJECTIVE: NAD, awake, alert MMM CV: RRR, No murmur heard today Abd: soft, NT , NL BS Lungs: CTAB Ext: no edema or erythema on upper or lower extremities ASSESSMENT AND PLAN: 19 y/o man with no significant PMH who was diagnosed with L renal infection / abscess in [facility] 2 days prior, who presented to [facility] after leaving [place] . he is being treated for MRSA abscess in L kidney 1- L renal MRSA abscess 2- Worsening leukocytosis 3- thrombocytosis plan: - cont Dapto and ceftaroline - follow last Blood cx - medical management at this time - Tx to [facility] was declined despite patient was accepted. transfer to [facility] d/w him, and after initial agreement , he declined until he d/w his - start SQ heparin - dispo is pending patient decision
[2019-05-12] MEDS: HEPARIN NA (PORCINE) 5,000 UNITS/ML 1ML VIAL SQ SCH (21:55)
--- NOTE | 2019-05-12 23:38 | PN ---
Physical Exam: SUBJECTIVE: Patient seen and examined at the bedside. Patient refused transfer to [facility] last night. States he is willing to go to [facility], will initiate transfer. OBJECTIVE: Vital Signs Period Temp Pulse Resp BP Sys/Solano Pulse Ox Last 24 Hr 99.5 F-101.5 F 93-104 16-18 109-151/54-72 GENERAL: The patient is awake, alert, and fully oriented, in no acute distress, HEAD: Normal with no signs of trauma. EYES: PERRL, extraocular movements intact, sclera anicteric, conjunctiva clear. No ptosis. ENT: Ears normal, nares patent, oropharynx clear without exudates, moist mucous membranes. NECK: Trachea midline, full range of motion, supple. LUNGS: Breath sounds equal, clear to auscultation bilaterally, no wheezes, no crackles, no accessory muscle use. HEART: Regular rate and rhythm, S1, S2, diastolic murmur heard at LLSB. ABDOMEN: Soft, no tenderness to palpation, nondistended, normoactive bowel sounds, no guarding, no rebound, no CVA tenderness, drain removed dressing with small amount serosanguenous fluid visible on gauze. Otherwise dry and intact. EXTREMITIES: 2+ pulses, warm, well-perfused, no edema. NEUROLOGICAL: Cranial nerves II through XII grossly intact. Normal speech, gait not observed. PSYCH: agitated mood SKIN: Warm, dry, normal turgor, no rashes or lesions noted Laboratory Results - last 24 hr 05/12/19 05/12/19 07:30 07:30 WBC 18.0 H RBC 3.76 L Hgb 11.0 L Hct 32.9 L MCV 87.6 MCH 29.2 MCHC 33.3 RDW 14.5 Plt Count 590 H MPV 7.7 Absolute Neuts (auto) 14.4 H Neutrophils % 79.7 Lymphocytes % 10.2 Monocytes % 8.9 Eosinophils % 0.7 Basophils % 0.5 Nucleated RBC % 0 Sodium 135 L Potassium 4.4 Chloride 100 Carbon Dioxide 28 Anion Gap 7 L BUN 9.3 Creatinine 0.7 Est GFR (CKD-EPI)AfAm 156.35 Est GFR (CKD-EPI)NonAf 134.90 Random Glucose 80 Calcium 9.2 Total Bilirubin 0.7 AST 36 ALT 17 Alkaline Phosphatase 159 H Creatine Kinase 28 C-Reactive Protein 13.4 H Total Protein 7.5 Albumin 2.5 L Active Medications Generic Name Dose Route Start Last Admin Trade Name Freq PRN Reason Stop Dose Admin Acetaminophen 650 mg 05/02/19 06:44 05/12/19 21:58 Tylenol - PO 650 mg Q6H PRN Administration FEVER Docusate Sodium 100 mg 05/04/19 10:00 05/12/19 10:46 Colace - PO 100 mg DAILY TYSON Administration Heparin Sodium (Porcine) 5,000 unit 05/12/19 22:00 05/12/19 21:55 Heparin - SQ Not Given TID TYSON Daptomycin 450 mg/ Sodium 50 mls @ 50 mls/hr 05/04/19 11:00 05/12/19 10:46 Chloride IVPB 50 mls/hr DAILY TYSON Administration Protocol Sodium Chloride 1,000 mls @ 150 mls/hr 05/11/19 08:58 05/12/19 15:45 Normal Saline - IV 150 mls/hr ASDIR TYSON Administration Ceftaroline Fosamil 600 mg/ 100 mls @ 100 mls/hr 05/12/19 10:00 05/12/19 19: 00 Dextrose IVPB 100 mls/hr Q8H-IV TYSON Administration Protocol ASSESSMENT/PLAN: 19 y/o/m with no PMHx here for abdominal pain, patient told he has a renal abscess at [facility] but signed out AMA and came here. 1- Sepsis most likely 2/2 MRSA renal abscess- most likely from a transient bacteremia, patient still with low grade fevers overnight. - s/p IR drainage, drain removed monday 05/07 - patient still with low grade fevers and WBC increasing to 18.6 today - newest CT abd/ pelvis showing: a left psoas/ renal abcess in comparison to the previous CT. There was a persistent 3.7x3.3cm L renal upper pole abcess consisting of soft tissue thickening and multiple small multiloculated fluid foci. There was also a small abcess cavity which was not seen previously, within the adjacent left psoas muscle. - continue with dapto per ID, day 9 - add zosyn per ID - Discussed with IR, although there is no pocket large enough for drain placement they will aspirate the largest fluid collection and resent for sultures - Urology also assessed patient today and feels that partial nephrectomy should be reserved for absolute last resort, will proceed by aspirating the largest fluid collection and sending for culture, repeating blood cultures, and broadening antibiotic coverage. Will also reach out to [facility] to set up potential transfer incase this patient requires higher level of care. -pain control with ofirmev and oxycodone - ID following, appreciate recommendations, will continue to observe inpatient, - nephrology following, appreciate recommendations - IR following, appreciate recommendations - NS at 75cc/h 2- Thrombocytosis - reactive - trend with cbcs 3)FEN NS @ 75cc/h replete lytes PRN Regular Diet 4)Prophylaxis -SCDs and heparin sq 5)Disposition -admitted to Med/Surg, will require picc line for extended course of IV antibiotics. Visit type - Emergency Visit Emergency Visit: Yes ED Registration Date: 04/29/19 Care time: The patient presented to the Emergency Department on the above date and was hospitalized for further evaluation of their emergent condition. - New Patient This patient is new to me today: No - Critical Care Critical Care patient: No - Discharge Referral Referred to [facility] Med P.C.: No ATTENDING PHYSICIAN STATEMENT I saw and evaluated the patient. I reviewed the resident's note and discussed the case with the resident. I agree with the resident's findings and plan as documented. SUBJECTIVE: OBJECTIVE: ASSESSMENT AND PLAN:
[2019-05-13] MEDS: CEFTAROLINE FOSAMIL ACETATE 600 MG in DEXTROSE 5%-WATER - 100 ML IVPB SCH ×3 (01:46→18:52)
[2019-05-13] MEDS: HEPARIN NA (PORCINE) 5,000 UNITS/ML 1ML VIAL SQ SCH ×3 (05:33→21:26)
[2019-05-13] MEDS: SODIUM CHLORIDE 1,000 ML IV SCH ×4 (07:19→23:10)
[2019-05-13 09:56] LABS: BASO % 0.4 % (0-2.0); EOS % 0.8 % (0-4.5); HEMATOCRIT 32.9 % (35.4-49); HEMOGLOBIN 11.2 GM/dL (11.7-16.9); LYMPH % 11.3 % (8-40); MCH 29.5 pg (25.7-33.7); MCHC 34.1 g/dl (32.0-35.9); MEAN CELL VOLUME 86.4 fl (80-96); MEAN PLT VOLUME 7.8 fl (7.5-11.1); MONO % 5.8 % (3.8-10.2); NEUT % 81.7 % (42.8-82.8); PLATELET COUNT 636 K/MM3 (134-434); RBC 3.81 M/mm3 (4.00-5.60); WHITE BLOOD COUNT 13.2 K/mm3 (4.0-10.0)
[2019-05-13 10:14] LABS: ALBUMIN 2.6 g/dl (3.4-5.0); BILIRUBIN,TOTAL 0.8 mg/dL (0.2-1); BLOOD UREA NITROGEN 8.4 mg/dL (7-18); CALCIUM 9.2 mg/dL (8.5-10.1); CREATININE 0.7 mg/dL (0.55-1.3); POTASSIUM 4.3 mmol/L (3.5-5.1); TOT PROT 7.8 g/dl (6.4-8.2)
[2019-05-13] MEDS ORDERED: PT OWN MED DRAWER 7, Y5N ONE ×2 (10:33→17:58)
[2019-05-13] MEDS: DAPTOMYCIN 450 MG in SODIUM CHLORIDE 50 ML IVPB SCH (11:21)
[2019-05-13] MEDS: DOCUSATE SODIUM 100 MG CAPSULE (FP) PO SCH (11:24)
--- NOTE | 2019-05-13 12:41 | PN ---
Progress Note, Physician History of Present Illness: Pt seen and examined at bedside. He agrees with transfer to [facility] for further care. He denies flank pain. - Current Medication List Current Medications: Active Medications Acetaminophen (Tylenol -) 650 mg PO Q6H PRN PRN Reason: FEVER Last Admin: 05/12/19 21:58 Dose: 650 mg Docusate Sodium (Colace -) 100 mg PO DAILY TYSON Last Admin: 05/13/19 11:24 Dose: 100 mg Heparin Sodium (Porcine) (Heparin -) 5,000 unit SQ TID TYSON Last Admin: 05/13/19 05:33 Dose: Not Given Daptomycin 450 mg/ Sodium (Chloride) 50 mls @ 50 mls/hr IVPB DAILY TYSON; Protocol Last Admin: 05/13/19 11:21 Dose: 50 mls/hr Sodium Chloride (Normal Saline -) 1,000 mls @ 150 mls/hr IV ASDIR TYSON Last Admin: 05/13/19 07:19 Dose: 150 mls/hr Ceftaroline Fosamil 600 mg/ (Dextrose) 100 mls @ 100 mls/hr IVPB Q8H-IV TYSON; Protocol Last Admin: 05/13/19 12:05 Dose: 100 mls/hr - Objective Vital Signs: Vital Signs Temperature 99.3 F 05/13/19 10:39 Pulse Rate 95 H 05/13/19 10:39 Respiratory Rate 20 05/13/19 10:39 Blood Pressure 118/64 05/13/19 10:39 O2 Sat by Pulse Oximetry (%) 96 05/11/19 09:00 Constitutional: Yes: Calm Eyes: Yes: Conjunctiva Clear HENT: Yes: Atraumatic Neck: Yes: Supple Cardiovascular: Yes: S1, S2 Respiratory: Yes: CTA Bilaterally Gastrointestinal: Yes: Normal Bowel Sounds, Soft Genitourinary: Yes: WNL Extremities: Yes: WNL Edema: No Integumentary: Yes: Tattoos Neurological: Yes: Oriented Labs: CBC, BMP 05/13/19 08:55 05/13/19 08:55 INR, PTT INR 1.64 (0.83-1.09) H 04/30/19 06:45 Problem List - Problems (1) Murmur Code(s): R01.1 - CARDIAC MURMUR, UNSPECIFIED (2) Flank pain, acute Code(s): R10.9 - UNSPECIFIED ABDOMINAL PAIN (3) Left renal mass Code(s): N28.89 - OTHER SPECIFIED DISORDERS OF KIDNEY AND URETER Assessment/Plan Current Medications Generic Name Dose Route Start Last Admin Trade Name Frelilian PRN Reason Stop Dose Admin Acetaminophen 650 mg 05/02/19 06:44 05/12/19 21:58 Tylenol - PO 650 mg Q6H PRN Administration FEVER Docusate Sodium 100 mg 05/04/19 10:00 05/13/19 11:24 Colace - PO 100 mg DAILY TSYON Administration Heparin Sodium (Porcine) 5,000 unit 05/12/19 22:00 05/13/19 05:33 Heparin - SQ Not Given TID TYSON Daptomycin 450 mg/ Sodium 50 mls @ 50 mls/hr 05/04/19 11:00 05/13/19 11:21 Chloride IVPB 50 mls/hr DAILY TYSON Administration Protocol Sodium Chloride 1,000 mls @ 150 mls/hr 05/11/19 08:58 05/13/19 07:19 Normal Saline - IV 150 mls/hr ASDIR TYSON Administration Ceftaroline Fosamil 600 mg/ 100 mls @ 100 mls/hr 05/12/19 10:00 05/13/19 12: 05 Dextrose IVPB 100 mls/hr Q8H-IV TYSON Administration Protocol Microbiology 05/11/19 18:00 Blood - Peripheral Venous Blood Culture - Preliminary NO GROWTH OBTAINED AFTER 24 HOURS, INCUBATION TO CONTINUE FOR 4 DAYS. 05/11/19 18:00 Blood - Peripheral Venous Blood Culture - Preliminary NO GROWTH OBTAINED AFTER 24 HOURS, INCUBATION TO CONTINUE FOR 4 DAYS. Impression 1. renal abscess 2. recent uti 3. heart murmur 4. thrombocytosis 5. pyelonephritis Plan - cont to follow cultures - renal function stable - cont fluids - monitor bp - monitor for fever - urology input appreciated - monitor platelets - discussed with medical team
--- NOTE | 2019-05-13 16:25 | PN ---
Progress Note (short form) - Note Progress Note: has had fevers since drain was d/[facility]arice on Friday no pain Vital Signs Period Temp Pulse Resp BP Sys/Solano Pulse Ox Last 24 Hr 98.0 F-101.5 F 85-104 18-20 107-120/55-69 cor-rrr lungs clear abd soft,nt ext no edema CBC, BMP 05/13/19 08:55 05/13/19 08:55 Microbiology 05/11/19 16:30 Abscess Gram Stain - Final 05/11/19 16:30 Abscess Body Fluid Culture - Preliminary Presumptive Mrsa (Pbp2a Pos) 05/11/19 18:00 Blood - Peripheral Venous Blood Culture - Preliminary NO GROWTH OBTAINED AFTER 24 HOURS, INCUBATION TO CONTINUE FOR 4 DAYS. 05/11/19 18:00 Blood - Peripheral Venous Blood Culture - Preliminary NO GROWTH OBTAINED AFTER 24 HOURS, INCUBATION TO CONTINUE FOR 4 DAYS. 05/04/19 10:00 Blood - Peripheral Venous Blood Culture - Final NO GROWTH AFTER 5 DAYS INCUBATION 05/04/19 10:15 Blood - Peripheral Venous Blood Culture - Final NO GROWTH AFTER 5 DAYS INCUBATION 04/29/19 20:45 Blood - Peripheral Venous Blood Culture - Final NO GROWTH AFTER 5 DAYS INCUBATION 04/29/19 20:40 Blood - Peripheral Venous Blood Culture - Final NO GROWTH AFTER 5 DAYS INCUBATION 04/30/19 15:00 Abscess Gram Stain - Final 04/30/19 15:00 Abscess Body Fluid Culture - Final Mr S Aureus 04/30/19 15:00 Abscess Anaerobic Culture - Final NO ANAEROBES WERE ISOLATED 04/29/19 20:20 Urine - Urine Clean Catch Urine Culture - Final NO GROWTH OBTAINED a/p MRSA renal abscess- most likely from a transient bacteremia day #10 daptomycin, repeat blood culture negative repeat aspirate of a small renal abscess- MRSA continue ceftaroline (second MRSA drug) day #2 suspect this is more a function of inablity to drain the abscesses as fevers/ leukocytosis recurred after drain was pulled plan in process for possible transfer to tertiary care center in the hopes they can offer more aggressive drainage of the kidney abscess- awaiting bed at [facility] Problem List - Problems (1) Left renal mass Code(s): N28.89 - OTHER SPECIFIED DISORDERS OF KIDNEY AND URETER
--- NOTE | 2019-05-13 17:19 | PN ---
Teaching Attending Note Name of Resident: Gracie Harden ATTENDING PHYSICIAN STATEMENT I saw and evaluated the patient. I reviewed the resident's note and discussed the case with the resident. I agree with the resident's findings and plan as documented. SUBJECTIVE: cont to have fevers ( last night ). he was not examined as his was sleeping with him in bed. ASSESSMENT AND PLAN: 19 y/o man with no significant PMH who was diagnosed with L renal infection / abscess in [facility] 2 days prior, who presented to [facility] after leaving [place] . he is being treated for MRSA abscess in L kidney 1- sepsis due to L renal MRSA abscess 2- Thrombocytosis plan: - cont Dapto and ceftaroline -Last blood cx neg x 24 hr . but cont to have fever - pt agrees to [facility] . case was d/w With Dr. Upton who accepted patient. Auth is pending - Heparin SQ
[2019-05-13] MEDS: ACETAMINOPHEN 325 MG TABLET (FP) PO PRN (18:56)
--- NOTE | 2019-05-13 19:33 | PN ---
Physical Exam: SUBJECTIVE: Patient seen and examined at the bedside. Patient has been discharged but is still in [facility]. OBJECTIVE: Vital Signs Period Temp Pulse Resp BP Sys/Solano Pulse Ox Last 24 Hr 98.0 F-101.5 F 85-105 18-20 107-120/59-70 GENERAL: The patient is awake, alert, and fully oriented, in no acute distress, HEAD: Normal with no signs of trauma. EYES: PERRL, extraocular movements intact, sclera anicteric, conjunctiva clear. No ptosis. ENT: Ears normal, nares patent, oropharynx clear without exudates, moist mucous membranes. NECK: Trachea midline, full range of motion, supple. LUNGS: Breath sounds equal, clear to auscultation bilaterally, no wheezes, no crackles, no accessory muscle use. HEART: Regular rate and rhythm, S1, S2, diastolic murmur heard at LLSB. ABDOMEN: Soft, no tenderness to palpation, nondistended, normoactive bowel sounds, no guarding, no rebound, no CVA tenderness, drain removed dressing with small amount serosanguenous fluid visible on gauze. Otherwise dry and intact. EXTREMITIES: 2+ pulses, warm, well-perfused, no edema. NEUROLOGICAL: Cranial nerves II through XII grossly intact. Normal speech, gait not observed. PSYCH: agitated mood SKIN: Warm, dry, normal turgor, no rashes or lesions noted Laboratory Results - last 24 hr 05/13/19 05/13/19 08:55 08:55 WBC 13.2 H RBC 3.81 L Hgb 11.2 L Hct 32.9 L MCV 86.4 MCH 29.5 MCHC 34.1 RDW 14.0 Plt Count 636 H MPV 7.8 Absolute Neuts (auto) 10.8 H Neutrophils % 81.7 Lymphocytes % 11.3 Monocytes % 5.8 Eosinophils % 0.8 Basophils % 0.4 Nucleated RBC % 0 Sodium 132 L Potassium 4.3 Chloride 99 Carbon Dioxide 26 Anion Gap 8 BUN 8.4 Creatinine 0.7 Est GFR (CKD-EPI)AfAm 156.35 Est GFR (CKD-EPI)NonAf 134.90 Random Glucose 140 H Calcium 9.2 Total Bilirubin 0.8 AST 43 H ALT 22 Alkaline Phosphatase 192 H Total Protein 7.8 Albumin 2.6 L Active Medications Generic Name Dose Route Start Last Admin Trade Name Freq PRN Reason Stop Dose Admin Acetaminophen 650 mg 05/02/19 06:44 05/13/19 18:56 Tylenol - PO 650 mg Q6H PRN Administration FEVER Docusate Sodium 100 mg 05/04/19 10:00 05/13/19 11:24 Colace - PO 100 mg DAILY TYSON Administration Heparin Sodium (Porcine) 5,000 unit 05/12/19 22:00 05/13/19 15:08 Heparin - SQ Not Given TID TYSON Daptomycin 450 mg/ Sodium 50 mls @ 50 mls/hr 05/04/19 11:00 05/13/19 11:21 Chloride IVPB 50 mls/hr DAILY TYSON Administration Protocol Sodium Chloride 1,000 mls @ 150 mls/hr 05/11/19 08:58 05/13/19 15:32 Normal Saline - IV 150 mls/hr ASDIR TYSON Administration Ceftaroline Fosamil 600 mg/ 100 mls @ 100 mls/hr 05/12/19 10:00 05/13/19 18: 52 Dextrose IVPB 100 mls/hr Q8H-IV TYSON Administration Protocol ASSESSMENT/PLAN: 19 y/o/m with no PMHx here for abdominal pain, patient told he has a renal abscess at [facility] but signed out AMA and came here. 1- Sepsis most likely 2/2 MRSA renal abscess- most likely from a transient bacteremia, patient still with low grade fevers overnight. - s/p IR drainage, drain removed monday 05/07 - patient still with low grade fevers and WBC increasing to 18.6 today - newest CT abd/ pelvis showing: a left psoas/ renal abcess in comparison to the previous CT. There was a persistent 3.7x3.3cm L renal upper pole abcess consisting of soft tissue thickening and multiple small multiloculated fluid foci. There was also a small abcess cavity which was not seen previously, within the adjacent left psoas muscle. - continue with dapto per ID, day 10 - add zosyn per ID - Discussed with IR, although there is no pocket large enough for drain placement they will aspirate the largest fluid collection and resent for sultures - Urology also assessed patient today and feels that partial nephrectomy should be reserved for absolute last resort, will proceed by aspirating the largest fluid collection and sending for culture, repeating blood cultures, and broadening antibiotic coverage. Will also reach out to [facility] to set up potential transfer incase this patient requires higher level of care. -pain control with ofirmev and oxycodone - ID following, appreciate recommendations, will continue to observe inpatient, - nephrology following, appreciate recommendations - IR following, appreciate recommendations - NS at 75cc/h 2- Thrombocytosis - reactive - trend with cbcs 3)FEN NS @ 75cc/h replete lytes PRN Regular Diet 4)Prophylaxis -SCDs and heparin sq 5)Disposition -admitted to Med/Surg, will require picc line for extended course of IV antibiotics. Visit type - Emergency Visit Emergency Visit: Yes ED Registration Date: 04/29/19 Care time: The patient presented to the Emergency Department on the above date and was hospitalized for further evaluation of their emergent condition. - New Patient This patient is new to me today: No - Critical Care Critical Care patient: No - Discharge Referral Referred to [facility] Med P.C.: No ATTENDING PHYSICIAN STATEMENT I saw and evaluated the patient. I reviewed the resident's note and discussed the case with the resident. I agree with the resident's findings and plan as documented. SUBJECTIVE: OBJECTIVE: ASSESSMENT AND PLAN:
[2019-05-13] MEDS ORDERED: ACETAMINOPHEN 1000 MG/100 ML VIAL (NON FORMULARY) IVPB ONE (22:40)
[2019-05-14] MEDS: CEFTAROLINE FOSAMIL ACETATE 600 MG in DEXTROSE 5%-WATER - 100 ML IVPB SCH ×3 (02:03→21:27)
[2019-05-14] MEDS: HEPARIN NA (PORCINE) 5,000 UNITS/ML 1ML VIAL SQ SCH ×3 (05:25→21:28)
[2019-05-14] MEDS: ACETAMINOPHEN 325 MG TABLET (FP) PO PRN (06:01)
[2019-05-14] MEDS: SODIUM CHLORIDE 1,000 ML IV SCH ×3 (06:02→13:08)
[2019-05-14] MEDS: DAPTOMYCIN 450 MG in SODIUM CHLORIDE 50 ML IVPB SCH (11:11)
[2019-05-14] MEDS: DOCUSATE SODIUM 100 MG CAPSULE (FP) PO SCH (11:11)
[2019-05-14] MEDS ORDERED: PT OWN MED DRAWER 7, Y5N ONE ×2 (13:00→21:10)
--- NOTE | 2019-05-14 14:46 | PN ---
Progress Note (short form) - Note Progress Note: has had fevers since drain was d/clarice on Friday febrile to 102.5 now moderate left sided flank pain as well Vital Signs Period Temp Pulse Resp BP Sys/Solano Pulse Ox Last 24 Hr 99.5 F-101.8 F 105-110 20-20 103-122/57-72 cor-rrr lungs clear abd soft, some discomfort LUQ on palpation (new) ext no edema CBC, BMP 05/13/19 08:55 05/13/19 08:55 Microbiology 05/11/19 16:30 Abscess Gram Stain - Final 05/11/19 16:30 Abscess Body Fluid Culture - Final Mr S Aureus 05/11/19 16:30 Abscess Anaerobic Culture - Final NO ANAEROBES WERE ISOLATED 05/11/19 18:00 Blood - Peripheral Venous Blood Culture - Preliminary NO GROWTH OBTAINED AFTER 48 HOURS, INCUBATION TO CONTINUE FOR 3 DAYS. 05/11/19 18:00 Blood - Peripheral Venous Blood Culture - Preliminary NO GROWTH OBTAINED AFTER 48 HOURS, INCUBATION TO CONTINUE FOR 3 DAYS. 05/04/19 10:00 Blood - Peripheral Venous Blood Culture - Final NO GROWTH AFTER 5 DAYS INCUBATION 05/04/19 10:15 Blood - Peripheral Venous Blood Culture - Final NO GROWTH AFTER 5 DAYS INCUBATION 04/29/19 20:45 Blood - Peripheral Venous Blood Culture - Final NO GROWTH AFTER 5 DAYS INCUBATION 04/29/19 20:40 Blood - Peripheral Venous Blood Culture - Final NO GROWTH AFTER 5 DAYS INCUBATION 04/30/19 15:00 Abscess Gram Stain - Final 04/30/19 15:00 Abscess Body Fluid Culture - Final Mr S Aureus 04/30/19 15:00 Abscess Anaerobic Culture - Final NO ANAEROBES WERE ISOLATED 04/29/19 20:20 Urine - Urine Clean Catch Urine Culture - Final NO GROWTH OBTAINED a/p MRSA renal abscess- most likely from a transient bacteremia day #11 daptomyciin , day #[address] scan and see if any abscesses are amenable to drainage plan in process for possible transfer to tertiary care center in the hopes they can offer more aggressive drainage of the kidney abscess patient is agreeable with this plan d/w hospitalist Problem List - Problems (1) Left renal mass Code(s): N28.89 - OTHER SPECIFIED DISORDERS OF KIDNEY AND URETER
[2019-05-14] MEDS ORDERED: ACETAMINOPHEN 1000 MG/100 ML VIAL (NON FORMULARY) IVPB ONE (15:06)
--- NOTE | 2019-05-14 15:43 | PN ---
Progress Note, Physician History of Present Illness: Pt seen and examined at bedside. He is awake and alert. He has had fevers. He does have flank pain today. - Current Medication List Current Medications: Active Medications Acetaminophen (Tylenol -) 650 mg PO Q6H PRN PRN Reason: FEVER Last Admin: 05/14/19 06:01 Dose: 650 mg Docusate Sodium (Colace -) 100 mg PO DAILY TYSON Last Admin: 05/14/19 11:11 Dose: 100 mg Heparin Sodium (Porcine) (Heparin -) 5,000 unit SQ TID TYSON Last Admin: 05/14/19 13:09 Dose: Not Given Daptomycin 450 mg/ Sodium (Chloride) 50 mls @ 50 mls/hr IVPB DAILY TYSON; Protocol Last Admin: 05/14/19 11:11 Dose: 50 mls/hr Sodium Chloride (Normal Saline -) 1,000 mls @ 150 mls/hr IV ASDIR TYSON Last Admin: 05/14/19 13:08 Dose: 150 mls/hr Ceftaroline Fosamil 600 mg/ (Dextrose) 100 mls @ 100 mls/hr IVPB Q8H-IV TYSON; Protocol Last Admin: 05/14/19 13:08 Dose: 100 mls/hr - Objective Vital Signs: Vital Signs Temperature 102.2 F H 05/14/19 13:40 Pulse Rate 100 H 05/14/19 15:00 Respiratory Rate 20 05/14/19 15:00 Blood Pressure 118/68 05/14/19 15:00 O2 Sat by Pulse Oximetry (%) 96 05/11/19 09:00 Constitutional: Yes: Calm Eyes: Yes: Conjunctiva Clear HENT: Yes: Atraumatic Cardiovascular: Yes: S1, S2 Respiratory: Yes: CTA Bilaterally Gastrointestinal: Yes: Soft Genitourinary: Yes: Other (flank pain) Musculoskeletal: Yes: WNL Edema: No Integumentary: Yes: Tattoos Neurological: Yes: Oriented Psychiatric: Yes: Oriented Labs: CBC, BMP 05/13/19 08:55 05/13/19 08:55 INR, PTT INR 1.64 (0.83-1.09) H 04/30/19 06:45 Problem List - Problems (1) Murmur Code(s): R01.1 - CARDIAC MURMUR, UNSPECIFIED (2) Flank pain, acute Code(s): R10.9 - UNSPECIFIED ABDOMINAL PAIN (3) Left renal mass Code(s): N28.89 - OTHER SPECIFIED DISORDERS OF KIDNEY AND URETER Assessment/Plan Current Medications Generic Name Dose Route Start Last Admin Trade Name Freq PRN Reason Stop Dose Admin Acetaminophen 650 mg 05/02/19 06:44 05/14/19 06:01 Tylenol - PO 650 mg Q6H PRN Administration FEVER Docusate Sodium 100 mg 05/04/19 10:00 05/14/19 11:11 Colace - PO 100 mg DAILY TYSON Administration Heparin Sodium (Porcine) 5,000 unit 05/12/19 22:00 05/14/19 13:09 Heparin - SQ Not Given TID TYSON Daptomycin 450 mg/ Sodium 50 mls @ 50 mls/hr 05/04/19 11:00 05/14/19 11:11 Chloride IVPB 50 mls/hr DAILY TYSON Administration Protocol Sodium Chloride 1,000 mls @ 150 mls/hr 05/11/19 08:58 05/14/19 13:08 Normal Saline - IV 150 mls/hr ASDIR TYSON Administration Ceftaroline Fosamil 600 mg/ 100 mls @ 100 mls/hr 05/12/19 10:00 05/14/19 13: 08 Dextrose IVPB 100 mls/hr Q8H-IV TYSON Administration Protocol Impression 1. renal abscess 2. recent uti 3. heart murmur 4. thrombocytosis 5. pyelonephritis Plan - cont abx per ID - pt pending transfer to tertiary care facility - monitor labs - cont fluids - renal function had been stable
--- NOTE | 2019-05-14 17:44 | PN ---
Physical Exam: SUBJECTIVE: Patient seen and examined at the bedside. Patient has been discharged but is still in hospital awaiting transfer to [facility]. OBJECTIVE: Vital Signs Period Temp Pulse Resp BP Sys/Solano Pulse Ox Last 24 Hr 99.5 F-102.2 F 99-110 20-20 103-122/57-72 GENERAL: The patient is awake, alert, and fully oriented, in no acute distress, HEAD: Normal with no signs of trauma. EYES: PERRL, extraocular movements intact, sclera anicteric, conjunctiva clear. No ptosis. ENT: Ears normal, nares patent, oropharynx clear without exudates, moist mucous membranes. NECK: Trachea midline, full range of motion, supple. LUNGS: Breath sounds equal, clear to auscultation bilaterally, no wheezes, no crackles, no accessory muscle use. HEART: Regular rate and rhythm, S1, S2, diastolic murmur heard at LLSB. ABDOMEN: Soft, no tenderness to palpation, nondistended, normoactive bowel sounds, no guarding, no rebound, no CVA tenderness, drain removed dressing with small amount serosanguenous fluid visible on gauze. Otherwise dry and intact. EXTREMITIES: 2+ pulses, warm, well-perfused, no edema. NEUROLOGICAL: Cranial nerves II through XII grossly intact. Normal speech, gait not observed. PSYCH: agitated mood SKIN: Warm, dry, normal turgor, no rashes or lesions noted Active Medications Generic Name Dose Route Start Last Admin Trade Name Freq PRN Reason Stop Dose Admin Acetaminophen 650 mg 05/02/19 06:44 05/14/19 06:01 Tylenol - PO 650 mg Q6H PRN Administration FEVER Docusate Sodium 100 mg 05/04/19 10:00 05/14/19 11:11 Colace - PO 100 mg DAILY TYSON Administration Heparin Sodium (Porcine) 5,000 unit 05/12/19 22:00 05/14/19 13:09 Heparin - SQ Not Given TID TYSON Daptomycin 450 mg/ Sodium 50 mls @ 50 mls/hr 05/04/19 11:00 05/14/19 11:11 Chloride IVPB 50 mls/hr DAILY TYSON Administration Protocol Sodium Chloride 1,000 mls @ 150 mls/hr 05/11/19 08:58 05/14/19 13:08 Normal Saline - IV 150 mls/hr ASDIR TYSON Administration Ceftaroline Fosamil 600 mg/ 100 mls @ 100 mls/hr 05/12/19 10:00 05/14/19 13: 08 Dextrose IVPB 100 mls/hr Q8H-IV TYSON Administration Protocol ASSESSMENT/PLAN: 19 y/o/m with no PMHx here for abdominal pain, patient told he has a renal abscess at [facility] but signed out AMA and came here. 1- Sepsis most likely 2/2 MRSA renal abscess- most likely from a transient bacteremia, patient still with low grade fevers overnight. - s/p IR drainage, drain removed monday 05/07 - patient still with low grade fevers and WBC increasing to 18.6 today - newest CT abd/ pelvis showing: a left psoas/ renal abcess in comparison to the previous CT. There was a persistent 3.7x3.3cm L renal upper pole abcess consisting of soft tissue thickening and multiple small multiloculated fluid foci. There was also a small abcess cavity which was not seen previously, within the adjacent left psoas muscle. - continue with dapto per ID, day 11 - add zosyn per ID - Discussed with IR, although there is no pocket large enough for drain placement they will aspirate the largest fluid collection and resent for sultures - Urology also assessed patient today and feels that partial nephrectomy should be reserved for absolute last resort, will proceed by aspirating the largest fluid collection and sending for culture, repeating blood cultures, and broadening antibiotic coverage. Will also reach out to [facility] [place] to set up potential transfer incase this patient requires higher level of care. -pain control with ofirmev and oxycodone - ID following, appreciate recommendations, will continue to observe inpatient, - nephrology following, appreciate recommendations - IR following, appreciate recommendations - repeat Ct with IV contrast today - blood cx repeated today - Heparin SQ , hold over night in case patient needs a procedure tomorrow - NS at 75cc/h 2- Thrombocytosis - reactive - trend with cbcs 3)FEN NS @ 75cc/h replete lytes PRN Regular Diet 4)Prophylaxis -SCDs and HOLD heparin 5)Disposition- - Transfer to [facility] is pending insurance auth Visit type - Emergency Visit Emergency Visit: Yes ED Registration Date: 04/29/19 Care time: The patient presented to the Emergency Department on the above date and was hospitalized for further evaluation of their emergent condition. - New Patient This patient is new to me today: No - Critical Care Critical Care patient: No - Discharge Referral Referred to [facility] Med [facility].C[facility] No ATTENDING PHYSICIAN STATEMENT I saw and evaluated the patient. I reviewed the resident's note and discussed the case with the resident. I agree with the resident's findings and plan as documented. SUBJECTIVE: OBJECTIVE: ASSESSMENT AND PLAN:
[2019-05-14 18:07] LABS: BASO % 0.4 % (0-2.0); EOS % 0.3 % (0-4.5); HEMATOCRIT 33.1 % (35.4-49); HEMOGLOBIN 10.9 GM/dL (11.7-16.9); LYMPH % 12.5 % (8-40); MCH 28.7 pg (25.7-33.7); MCHC 33.1 g/dl (32.0-35.9); MEAN CELL VOLUME 86.7 fl (80-96); MONO % 9.7 % (3.8-10.2); NEUT % 77.1 % (42.8-82.8); PLATELET COUNT 588 K/MM3 (134-434); RBC 3.82 M/mm3 (4.00-5.60); RDW 14.1 % (11.9-15.9); WHITE BLOOD COUNT 15.3 K/mm3 (4.0-10.0)
[2019-05-14 18:30] LABS: BLOOD UREA NITROGEN 8.4 mg/dL (7-18); CALCIUM 8.7 mg/dL (8.5-10.1); CREATININE 0.7 mg/dL (0.55-1.3)
--- NOTE | 2019-05-14 19:23 | PN ---
Teaching Attending Note Name of Resident: Gracie Harden ATTENDING PHYSICIAN STATEMENT I saw and evaluated the patient. I reviewed the resident's note and discussed the case with the resident. I agree with the resident's findings and plan as documented. SUBJECTIVE: contto have fevers and L flank pain OBJECTIVE: NAD Cv : RRR Lungs: CTAB Abd: soft, NT, ND , NLBS Ext : No edema or erythema. A/p : 19 y/o man with no significant PMH who was diagnosed with L renal infection / abscess in [facility] 2 days prior, who presented to [facility] after leaving [place] . he is being treated for MRSA abscess in L kidney 1- Sepsis due to L renal MRSA abscess 2- Thrombocytosis plan: - cont Dapto and ceftaroline - repeat Ct with IV contrast - blood cx repeated today -Transfer to [facility] is pending insurance auth - Heparin SQ , hold over night in case patient needs a procedure tomorrow
[2019-05-15] MEDS ORDERED: PT OWN MED DRAWER 7, Y5N ONE (02:07)
[2019-05-15] MEDS: SODIUM CHLORIDE 1,000 ML IV SCH ×3 (02:20→18:09)
[2019-05-15] MEDS: CEFTAROLINE FOSAMIL ACETATE 600 MG in DEXTROSE 5%-WATER - 100 ML IVPB SCH ×3 (02:20→18:10)
[2019-05-15 08:48] LABS: BASO % 0.5 % (0-2.0); EOS % 0.7 % (0-4.5); HEMATOCRIT 31.9 % (35.4-49); HEMOGLOBIN 10.9 GM/dL (11.7-16.9); LYMPH % 14.4 % (8-40); MCH 29.5 pg (25.7-33.7); MCHC 34.2 g/dl (32.0-35.9); MEAN PLT VOLUME 7.7 fl (7.5-11.1); MONO % 10.3 % (3.8-10.2); NEUT % 74.1 % (42.8-82.8); PLATELET COUNT 587 K/MM3 (134-434); RBC 3.71 M/mm3 (4.00-5.60); RDW 14.4 % (11.9-15.9); WHITE BLOOD COUNT 12.1 K/mm3 (4.0-10.0)
[2019-05-15 09:10] LABS: ALBUMIN 2.4 g/dl (3.4-5.0); BILIRUBIN,TOTAL 0.5 mg/dL (0.2-1); BLOOD UREA NITROGEN 7.7 mg/dL (7-18); CALCIUM 9.2 mg/dL (8.5-10.1); CREATININE 0.7 mg/dL (0.55-1.3); POTASSIUM 4.5 mmol/L (3.5-5.1); TOT PROT 7.7 g/dl (6.4-8.2)
[2019-05-15] MEDS: DAPTOMYCIN 450 MG in SODIUM CHLORIDE 50 ML IVPB SCH (11:05)
[2019-05-15] MEDS: DOCUSATE SODIUM 100 MG CAPSULE (FP) PO SCH (11:06)
--- NOTE | 2019-05-15 13:18 | PN ---
Progress Note (short form) - Note Progress Note: has had fevers since drain was d/clarice on Friday febrile to 102.5 yesterday looks well today pain has resolved! Vital Signs Period Temp Pulse Resp BP Sys/Solano Pulse Ox Last 24 Hr 98.5 F-102.2 F 87-100 18-20 96-118/50-68 100 cor-rrr lungs clear abd soft,nt no flank pain ext no edema ct scan unchanged CBC, BMP 05/15/19 07:30 05/15/19 07:30 Microbiology 05/11/19 18:00 Blood - Peripheral Venous Blood Culture - Preliminary NO GROWTH OBTAINED AFTER 72 HOURS, INCUBATION TO CONTINUE FOR 2 DAYS. 05/11/19 18:00 Blood - Peripheral Venous Blood Culture - Preliminary NO GROWTH OBTAINED AFTER 72 HOURS, INCUBATION TO CONTINUE FOR 2 DAYS. 05/11/19 16:30 Abscess Gram Stain - Final 05/11/19 16:30 Abscess Body Fluid Culture - Final Mr S Aureus 05/11/19 16:30 Abscess Anaerobic Culture - Final NO ANAEROBES WERE ISOLATED 05/04/19 10:00 Blood - Peripheral Venous Blood Culture - Final NO GROWTH AFTER 5 DAYS INCUBATION 05/04/19 10:15 Blood - Peripheral Venous Blood Culture - Final NO GROWTH AFTER 5 DAYS INCUBATION 04/29/19 20:45 Blood - Peripheral Venous Blood Culture - Final NO GROWTH AFTER 5 DAYS INCUBATION 04/29/19 20:40 Blood - Peripheral Venous Blood Culture - Final NO GROWTH AFTER 5 DAYS INCUBATION 04/30/19 15:00 Abscess Gram Stain - Final 04/30/19 15:00 Abscess Body Fluid Culture - Final Mr S Aureus 04/30/19 15:00 Abscess Anaerobic Culture - Final NO ANAEROBES WERE ISOLATED 04/29/19 20:20 Urine - Urine Clean Catch Urine Culture - Final NO GROWTH OBTAINED a/p MRSA renal abscess- most likely from a transient bacteremia day #12 daptomyciin , day #[address] unchanged would trend esr/crp and cbc plan in process for possible transfer to tertiary care center in the hopes they can offer more aggressive drainage of the kidney abscess patient is agreeable with this plan d/w hospitalist Problem List - Problems (1) Left renal mass Code(s): N28.89 - OTHER SPECIFIED DISORDERS OF KIDNEY AND URETER
--- NOTE | 2019-05-15 14:39 | PN ---
Physical Exam: SUBJECTIVE: Patient seen and examined. Pt. denies any acute complaints. No fevers overnight. Pt. denies any abdominal pain. OBJECTIVE: Vital Signs Period Temp Pulse Resp BP Sys/Solano Pulse Ox Last 24 Hr 98.5 F-99.2 F 87-100 18-20 96-118/50-68 100 GENERAL: The patient is awake, alert, and fully oriented, in no acute distress. HEAD: Normal with no signs of trauma. EYES: Sclera anicteric, conjunctiva clear. No ptosis. ENT: Ears normal, nares patent, oropharynx clear without exudates, moist mucous membranes. LUNGS: Breath sounds equal, clear to auscultation bilaterally, no wheezes, no crackles, no accessory muscle use. HEART: Regular rate and rhythm, S1, S2 without murmur, rub or gallop. ABDOMEN: Soft, nontender, nondistended, normoactive bowel sounds, no guarding, no rebound EXTREMITIES: 2+ dorsal pedal pulses, warm, no calf tenderness well-perfused, no edema. NEUROLOGICAL: Cranial nerves II through XII grossly intact. Normal speech, gait not observed. PSYCH: Normal mood, normal affect. SKIN: Warm, dry, normal turgor Laboratory Results - last 24 hr 05/14/19 05/14/19 05/15/19 16:45 16:45 07:30 WBC 15.3 H 12.1 H RBC 3.82 L 3.71 L Hgb 10.9 L 10.9 L Hct 33.1 L 31.9 L MCV 86.7 86.0 MCH 28.7 29.5 MCHC 33.1 34.2 RDW 14.1 14.4 Plt Count 588 H 587 H MPV 8.0 7.7 Absolute Neuts (auto) 11.8 H 8.9 H Neutrophils % 77.1 74.1 Lymphocytes % 12.5 14.4 Monocytes % 9.7 10.3 H Eosinophils % 0.3 0.7 D Basophils % 0.4 0.5 Nucleated RBC % 0 0 Sodium 135 L Potassium 4.0 Chloride 99 Carbon Dioxide 26 Anion Gap 10 BUN 8.4 Creatinine 0.7 Est GFR (CKD-EPI)AfAm 156.35 Est GFR (CKD-EPI)NonAf 134.90 Random Glucose 91 Calcium 8.7 Total Bilirubin AST ALT Alkaline Phosphatase LD Total Total Protein Albumin 05/15/19 07:30 WBC RBC Hgb Hct MCV MCH MCHC RDW Plt Count MPV Absolute Neuts (auto) Neutrophils % Lymphocytes % Monocytes % Eosinophils % Basophils % Nucleated RBC % Sodium 135 L Potassium 4.5 Chloride 100 Carbon Dioxide 29 Anion Gap 6 L BUN 7.7 Creatinine 0.7 Est GFR (CKD-EPI)AfAm 156.35 Est GFR (CKD-EPI)NonAf 134.90 Random Glucose 80 Calcium 9.2 Total Bilirubin 0.5 AST 36 ALT 22 Alkaline Phosphatase 223 H LD Total 103 Total Protein 7.7 Albumin 2.4 L Active Medications Current Medications Acetaminophen (Tylenol -) 650 mg PO Q6H PRN PRN Reason: FEVER Last Admin: 05/14/19 06:01 Dose: 650 mg Docusate Sodium (Colace -) 100 mg PO DAILY TYSON Last Admin: 05/15/19 11:06 Dose: 100 mg Heparin Sodium (Porcine) (Heparin -) 5,000 unit SQ TID TYSON Last Admin: 05/14/19 21:28 Dose: Not Given Daptomycin 450 mg/ Sodium (Chloride) 50 mls @ 50 mls/hr IVPB DAILY [facility]; Protocol Last Admin: 05/15/19 11:05 Dose: 50 mls/hr Sodium Chloride (Normal Saline -) 1,000 mls @ 150 mls/hr IV ASDIR TYSON Last Admin: 05/15/19 11:06 Dose: Not Given Ceftaroline Fosamil 600 mg/ (Dextrose) 100 mls @ 100 mls/hr IVPB Q8H-IV TYSON; Protocol Last Admin: 05/15/19 11:05 Dose: 100 mls/hr ASSESSMENT/PLAN: 19 y.o. M with no PMHx. here for abdominal pain, patient told he has a renal abscess at [facility] but signed out AMA and came here. 1- Sepsis most likely 2/2 MRSA renal abscess- most likely from a transient bacteremia, patient still with low grade fevers overnight. - Pending transfer to [facility], awaiting insurance authorization - s/p IR drainage, drain removed Monday 05/07 - patient still with low grade fevers and WBC increasing to 12.1k today - Repeat CT (05/15/19): - (05/10/19) CT Abd/Pelvis showing: a left psoas / renal abscess in comparison to the previous CT. There was a persistent 3.7 x 3.3 cm L renal upper pole abscess consisting of soft tissue thickening and multiple small multiloculated fluid foci. There was also a small abscess cavity which was not seen previously, within the adjacent left psoas muscle. - c/w Dapto per ID, day 11 - c/w Ceftaroline per ID, day 3 - Discussed with IR, although there is no pocket large enough for drain placement they will aspirate the largest fluid collection and resent for cultures - Urology also assessed patient today and feels that partial Nephrectomy should be reserved for absolute last resort, will proceed by aspirating the largest fluid collection and sending for culture, repeating blood cultures, and broadening antibiotic coverage. - Pain control with ofirmev and oxycodone - ID following, appreciate recommendations, will continue to observe inpatient, - Nephrology following, appreciate recommendations - IR following, appreciate recommendations-> unable to place drain to - IVF 2- Thrombocytosis - reactive - trend with cbcs 3)FEN NS @ 75cc/h replete lytes PRN Regular Diet 4)Prophylaxis -SCDs and heparin sq 5)Disposition -admitted to Med/Surg, will require picc line for extended course of IV antibiotics. ATTENDING PHYSICIAN STATEMENT I saw and evaluated the patient. I reviewed the resident's note and discussed the case with the resident. I agree with the resident's findings and plan as documented. SUBJECTIVE: OBJECTIVE: ASSESSMENT AND PLAN:
--- NOTE | 2019-05-15 16:37 | PN ---
Teaching Attending Note Name of Resident: Mathew Barry ATTENDING PHYSICIAN STATEMENT I saw and evaluated the patient. I reviewed the resident's note and discussed the case with the resident. I agree with the resident's findings and plan as documented. SUBJECTIVE: Feels better . No pain in abd or flanks OBJECTIVE: NAD Cv: RRR Lungs: CTAB Abd: soft, NT, ND , NL BS Ext : No edema or erythema. A/p : 19 y/o man with no significant PMH who was diagnosed with L renal infection / abscess in [facility] 2 days prior, who presented to [facility] after leaving [place] . he is being treated for MRSA abscess in L kidney 1- Sepsis due to L renal MRSA abscess 2- Thrombocytosis plan: - Cont Dapto and ceftaroline - repeat Ct with IV contrast showed not change from before - blood cx neg to date -Transfer to [facility] is pending insurance auth - resume Heparin SQ
[2019-05-15] MEDS: HEPARIN NA (PORCINE) 5,000 UNITS/ML 1ML VIAL SQ SCH (21:21)
[2019-05-16] MEDS ORDERED: PT OWN MED DRAWER 7, Y5N ONE ×3 (02:32→17:15)
[2019-05-16] MEDS: CEFTAROLINE FOSAMIL ACETATE 600 MG in DEXTROSE 5%-WATER - 100 ML IVPB SCH ×3 (02:51→17:30)
[2019-05-16] MEDS: SODIUM CHLORIDE 1,000 ML IV SCH ×4 (06:25→22:13)
[2019-05-16] MEDS: HEPARIN NA (PORCINE) 5,000 UNITS/ML 1ML VIAL SQ SCH ×3 (06:32→22:14)
[2019-05-16 08:58] LABS: BASO % 0.6 % (0-2.0); EOS % 1.2 % (0-4.5); HEMATOCRIT 36.3 % (35.4-49); HEMOGLOBIN 12.2 GM/dL (11.7-16.9); MCH 29.2 pg (25.7-33.7); MCHC 33.6 g/dl (32.0-35.9); MEAN CELL VOLUME 86.7 fl (80-96); MEAN PLT VOLUME 7.3 fl (7.5-11.1); MONO % 8.2 % (3.8-10.2); PLATELET COUNT 621 K/MM3 (134-434); RBC 4.19 M/mm3 (4.00-5.60); RDW 14.6 % (11.9-15.9); WHITE BLOOD COUNT 13.3 K/mm3 (4.0-10.0)
[2019-05-16] MEDS: DAPTOMYCIN 450 MG in SODIUM CHLORIDE 50 ML IVPB SCH (10:31)
[2019-05-16] MEDS: DOCUSATE SODIUM 100 MG CAPSULE (FP) PO SCH (10:31)
--- NOTE | 2019-05-16 16:18 | PN ---
Progress Note (short form) - Note Progress Note: Subjective: no pain or fever Objective: Vital Signs: Last Vital Signs Temp Pulse Resp BP Pulse Ox 99.7 F H 96 H 20 124/71 99 05/16/19 14:10 05/16/19 14:10 05/16/19 14:10 05/16/19 14:10 05/15/19 21:00 Laboratory Results - last 24 hr 05/16/19 08:45 WBC 13.3 H RBC 4.19 Hgb 12.2 Hct 36.3 MCV 86.7 MCH 29.2 MCHC 33.6 RDW 14.6 Plt Count 621 H MPV 7.3 L Absolute Neuts (auto) 10.4 H Neutrophils % 78.0 Lymphocytes % 12.0 Monocytes % 8.2 Eosinophils % 1.2 Basophils % 0.6 Nucleated RBC % 0 Physical Exam: NAD Cv: RRR Lungs: CTAB Abd: soft, NT, ND , NL BS Ext : No edema or erythema. A/p: 19 y/o man with no significant PMH who was diagnosed with L renal infection / abscess in [facility] 2 days prior, who presented to [facility] after leaving [place] . he is being treated for MRSA abscess in L kidney 1- Sepsis due to L renal MRSA abscess. 2- Thrombocytosis plan: - Ct scan reviewed. no change from before. - Stabel WBC - Cont Dapto and ceftaroline - CRP tomorrow - blood cx neg to date -Transfer to [facility] is pending insurance auth - SQ Heparin SQ Visit type - Emergency Visit Emergency Visit: Yes ED Registration Date: 04/29/19 Care time: The patient presented to the Emergency Department on the above date and was hospitalized for further evaluation of their emergent condition. - New Patient This patient is new to me today: No - Critical Care Critical Care patient: No
[2019-05-17] MEDS ORDERED: PT OWN MED DRAWER 7, Y5N ONE ×2 (02:10→09:47)
[2019-05-17] MEDS: CEFTAROLINE FOSAMIL ACETATE 600 MG in DEXTROSE 5%-WATER - 100 ML IVPB SCH ×2 (02:23→09:49)
[2019-05-17] MEDS: SODIUM CHLORIDE 1,000 ML IV SCH ×2 (05:58→13:48)
[2019-05-17] MEDS: HEPARIN NA (PORCINE) 5,000 UNITS/ML 1ML VIAL SQ SCH ×2 (05:59→14:25)
[2019-05-17 08:40] LABS: BASO % 0.8 % (0-2.0); EOS % 3.4 % (0-4.5); HEMATOCRIT 33.8 % (35.4-49); HEMOGLOBIN 11.3 GM/dL (11.7-16.9); LYMPH % 17.3 % (8-40); MCH 29.2 pg (25.7-33.7); MCHC 33.5 g/dl (32.0-35.9); MEAN CELL VOLUME 87.4 fl (80-96); MEAN PLT VOLUME 7.7 fl (7.5-11.1); NEUT % 66.5 % (42.8-82.8); PLATELET COUNT 650 K/MM3 (134-434); RBC 3.87 M/mm3 (4.00-5.60); RDW 14.3 % (11.9-15.9); WHITE BLOOD COUNT 9.2 K/mm3 (4.0-10.0)
[2019-05-17] MEDS: DOCUSATE SODIUM 100 MG CAPSULE (FP) PO SCH (09:49)
[2019-05-17] MEDS: DAPTOMYCIN 450 MG in SODIUM CHLORIDE 50 ML IVPB SCH (11:10)
--- NOTE | 2019-05-17 13:09 | PN ---
Progress Note (short form) - Note Progress Note: less fever no complaints no abdominal pain Vital Signs Period Temp Pulse Resp BP Sys/Solano Pulse Ox Last 24 Hr 97.9 F-99.7 F 84-99 18-20 114-129/62-76 98-98 cor-rrr lungs clear abd soft,nt no flank pain ext no edema CBC, BMP 05/17/19 07:35 05/15/19 07:30 Microbiology 05/11/19 18:00 Blood - Peripheral Venous Blood Culture - Final NO GROWTH AFTER 5 DAYS INCUBATION 05/11/19 18:00 Blood - Peripheral Venous Blood Culture - Final NO GROWTH AFTER 5 DAYS INCUBATION 05/14/19 17:00 Blood - Peripheral Venous Blood Culture - Preliminary NO GROWTH OBTAINED AFTER 48 HOURS, INCUBATION TO CONTINUE FOR 3 DAYS. 05/14/19 16:45 Blood - Peripheral Venous Blood Culture - Preliminary NO GROWTH OBTAINED AFTER 48 HOURS, INCUBATION TO CONTINUE FOR 3 DAYS. 05/11/19 16:30 Abscess Gram Stain - Final 05/11/19 16:30 Abscess Body Fluid Culture - Final Mr S Aureus 05/11/19 16:30 Abscess Anaerobic Culture - Final NO ANAEROBES WERE ISOLATED 05/04/19 10:00 Blood - Peripheral Venous Blood Culture - Final NO GROWTH AFTER 5 DAYS INCUBATION 05/04/19 10:15 Blood - Peripheral Venous Blood Culture - Final NO GROWTH AFTER 5 DAYS INCUBATION 04/29/19 20:45 Blood - Peripheral Venous Blood Culture - Final NO GROWTH AFTER 5 DAYS INCUBATION 04/29/19 20:40 Blood - Peripheral Venous Blood Culture - Final NO GROWTH AFTER 5 DAYS INCUBATION 04/30/19 15:00 Abscess Gram Stain - Final 04/30/19 15:00 Abscess Body Fluid Culture - Final Mr S Aureus 04/30/19 15:00 Abscess Anaerobic Culture - Final NO ANAEROBES WERE ISOLATED 04/29/19 20:20 Urine - Urine Clean Catch Urine Culture - Final NO GROWTH OBTAINED Laboratory Tests 04/29/19 04/29/19 05/03/19 20:40 20:40 06:15 ESR 86 H C-Reactive Protein 19.5 H HIV 1&2 Antibody Screen Negative HIV P24 Antigen Negative 05/04/19 05/05/19 05/10/19 06:10 07:35 08:05 ESR C-Reactive Protein 15.2 H 12.9 H 12.4 H HIV 1&2 Antibody Screen HIV P24 Antigen 05/11/19 05/12/19 05/17/19 07:20 07:30 07:35 ESR C-Reactive Protein 14.2 H 13.4 H 14.1 H HIV 1&2 Antibody Screen HIV P24 Antigen a/p MRSA renal abscess- most likely from a transient bacteremia day #14 daptomyciin , day #[address] unchanged would trend crp- remains elevated plan in process for possible transfer to tertiary care center in the hopes they can offer more aggressive drainage of the kidney abscess patient is agreeable with this plan Problem List - Problems (1) Left renal mass Code(s): N28.89 - OTHER SPECIFIED DISORDERS OF KIDNEY AND URETER
--- NOTE | 2019-05-17 13:26 | PN ---
Progress Note, Physician History of Present Illness: Pt seen and examined. He says that the flank pain is resolved. He is tolerating diet. - Current Medication List Current Medications: Active Medications Acetaminophen (Tylenol -) 650 mg PO Q6H PRN PRN Reason: FEVER Last Admin: 05/14/19 06:01 Dose: 650 mg Docusate Sodium (Colace -) 100 mg PO DAILY TYSON Last Admin: 05/17/19 09:49 Dose: 100 mg Heparin Sodium (Porcine) (Heparin -) 5,000 unit SQ TID TYSON Last Admin: 05/17/19 05:59 Dose: Not Given Daptomycin 450 mg/ Sodium (Chloride) 50 mls @ 50 mls/hr IVPB DAILY TYSON; Protocol Last Admin: 05/17/19 11:10 Dose: 50 mls/hr Sodium Chloride (Normal Saline -) 1,000 mls @ 150 mls/hr IV ASDIR TYSON Last Admin: 05/17/19 05:58 Dose: 150 mls/hr Ceftaroline Fosamil 600 mg/ (Dextrose) 100 mls @ 100 mls/hr IVPB Q8H-IV TYSON; Protocol Last Admin: 05/17/19 09:49 Dose: 100 mls/hr - Objective Vital Signs: Vital Signs Temperature 98.4 F 05/17/19 10:00 Pulse Rate 99 H 05/17/19 10:00 Respiratory Rate 20 05/17/19 10:00 Blood Pressure 128/62 05/17/19 10:00 O2 Sat by Pulse Oximetry (%) 98 05/17/19 09:00 Constitutional: Yes: Calm Eyes: Yes: Conjunctiva Clear HENT: Yes: Atraumatic Neck: Yes: Supple Cardiovascular: Yes: S1, S2 Respiratory: Yes: CTA Bilaterally Gastrointestinal: Yes: Soft Genitourinary: Yes: WNL Musculoskeletal: Yes: WNL Extremities: Yes: WNL Edema: No Integumentary: Yes: Tattoos Neurological: Yes: Oriented Psychiatric: Yes: Oriented Labs: CBC, BMP 05/17/19 07:35 05/15/19 07:30 INR, PTT INR 1.64 (0.83-1.09) H 04/30/19 06:45 Problem List - Problems (1) Murmur Code(s): R01.1 - CARDIAC MURMUR, UNSPECIFIED (2) Flank pain, acute Code(s): R10.9 - UNSPECIFIED ABDOMINAL PAIN (3) Left renal mass Code(s): N28.89 - OTHER SPECIFIED DISORDERS OF KIDNEY AND URETER Assessment/Plan Current Medications Generic Name Dose Route Start Last Admin Trade Name Freq PRN Reason Stop Dose Admin Acetaminophen 650 mg 05/02/19 06:44 05/14/19 06:01 Tylenol - PO 650 mg Q6H PRN Administration FEVER Docusate Sodium 100 mg 05/04/19 10:00 05/17/19 09:49 Colace - PO 100 mg DAILY TYSON Administration Heparin Sodium (Porcine) 5,000 unit 05/12/19 22:00 05/17/19 05:59 Heparin - SQ Not Given TID TYSON Daptomycin 450 mg/ Sodium 50 mls @ 50 mls/hr 05/04/19 11:00 05/17/19 11:10 Chloride IVPB 50 mls/hr DAILY TYSON Administration Protocol Sodium Chloride 1,000 mls @ 150 mls/hr 05/11/19 08:58 05/17/19 05:58 Normal Saline - IV 150 mls/hr ASDIR TYSON Administration Ceftaroline Fosamil 600 mg/ 100 mls @ 100 mls/hr 05/12/19 10:00 05/17/19 09: 49 Dextrose IVPB 100 mls/hr Q8H-IV TYSON Administration Protocol Impression 1. renal abscess 2. recent uti 3. heart murmur 4. thrombocytosis 5. pyelonephritis Plan - renal function had been stable - cont abx per ID - pt still pending transfer to tertiary care facility
[2019-05-17 15:37] VITALS: BP 128/64; PULSE 96; TEMP 97.8
--- NOTE | 2019-05-17 17:07 | PN ---
Teaching Attending Note Name of Resident: Liudmila Daniels ATTENDING PHYSICIAN STATEMENT I saw and evaluated the patient. I reviewed the resident's note and discussed the case with the resident. I agree with the resident's findings and plan as documented. SUBJECTIVE: No fever or chills. No CALDERON . no pain. OBJECTIVE: NAD Cv: RRR Lungs: CTAB Abd: soft, NT, ND , NL BS Ext : No edema or erythema. A/p: 19 y/o man with no significant PMH who was diagnosed with L renal infection / abscess in [facility] 2 days prior, who presented to [facility] after leaving [place] . he is being treated for MRSA abscess in L kidney 1- Sepsis due to L renal MRSA abscess. 2- Thrombocytosis plan was to continue abx pending transfer to [facility], but he decided later today to leave A . the risks of leaving AM were d/w him by Caesar, the manager internship.
--- NOTE | 2019-05-17 18:35 | DS ---
Physical Exam: SUBJECTIVE: Patient seen and examined 19 y/o M w/ no PMH presents w/ Abdominal pain after being diagnosed at [facility] w / a renal abscess and leaving AMA. He is admitted to [facility] and found to still have the Renal abscess which has worsened to sepsis 2/2 to MRSA. Pt appeared afebrile and asymptomatic and reported no c/o or symptoms overnight. Denies fevers, chills, n/v, diarrhea, chest pain, headaches, abdominal pain, back pain. OBJECTIVE: Vital Signs Period Temp Pulse Resp BP Sys/Solano Pulse Ox Last 24 Hr 97.8 F-98.7 F 84-99 20-20 125-129/62-76 98-98 PHYSICAL EXAM GENERAL: The patient is awake, alert, and fully oriented, in no acute distress. HEAD: Normal with no signs of trauma. EYES: PERRL, extraocular movements intact, conjunctiva clear. NECK: No LAD, supple. LUNGS: Breath sounds equal, clear to auscultation bilaterally, no wheezes, no crackles, no accessory muscle use. HEART: Regular rate and rhythm, S1, S2 without murmur, rub or gallop. ABDOMEN: Soft, nontender, nondistended, normoactive bowel sounds, no guarding, no rebound, EXTREMITIES: 2+ pulses, warm, well-perfused, no edema. NEUROLOGICAL: Cranial nerves II through XII grossly intact. Normal speech SKIN: Warm, dry, normal turgor, LABS Laboratory Results - last 24 hr 05/17/19 05/17/19 07:35 07:35 WBC 9.2 RBC 3.87 L Hgb 11.3 L Hct 33.8 L MCV 87.4 MCH 29.2 MCHC 33.5 RDW 14.3 Plt Count 650 H MPV 7.7 Absolute Neuts (auto) 6.1 Neutrophils % 66.5 Lymphocytes % 17.3 D Monocytes % 12.0 H Eosinophils % 3.4 D Basophils % 0.8 Nucleated RBC % 0 C-Reactive Protein 14.1 H HOSPITAL COURSE: Date of Admission:04/29/19 19 y/o M w/ no PMH presents w/ Abdominal pain after being diagnosed at [facility] w / a renal abscess. After leaving AMA at [facility] he came to [facility], where he was found to have Renal abscess which has worsened to sepsis 2/2 to MRSA. He was started on Abx- Cefaroline and daptomycin. His White count remained stable. Retroperitoneal drainage was performed- left upper pole of the left kidney-1.5 cc of thick purulent discharged was drained. We suggested [facility] but he had refused and instead wanted to go to [facility]. However, his insurance was not authorized and was in the process of being resolved. Notified by nurse, pt wanted to leave AMA due to a family emergency regarding Grandmother. Spoke at length w/ pt regarding the risks and benefits of AMA. Discussed w/ pt that if he did not receive treatment, his infection and condition would worsen, which could lead to loss of kidney, sepsis, comorbidities and . Pt expressed comprehension and still left AMA. Pt reported that he would go to [facility] for further treatment. Abd CT; Complex mass or abscess of the left upper pole of the left kidney extending to the left psoas muscle. Blood cx: negative Abscess Cx: MRSA positive Date of Discharge: 05/17/19 Minutes to complete discharge: 35 Discharge Summary Problems reviewed: Yes Reason For Visit: MASS OF LEFT KIDEY, SEPSIS Condition: Improved - Instructions Diet, Activity, Other Instructions: You came in for abdominal pain after being seen at [facility] and given a dose of antibiotics. We imaged your abdomen and you were found to have a mass on your left kidney. We drained the mass and it was determined to be an abscess( infected collection of pus). We took cultures from the abscess and you were found to be growing Methicillin Resistant Staphlococcus Aureus (MRSA). We tested you for HIV and you were found to be negative. We started you on IV antibiotics (Daptomycin), you will likely need to continue for at least 4 weeks. Please follow up with your Infectious Disease doctor for further management of your antibiotics. Please follow up with your PCP, Dr. Cabral within 1 week. Please follow up with you Infectious Disease Doctor, Dr. Finley within 1 week. You will need weekly blood work to monitor your kidney function as you receive your antibiotics. Please follow up with your Broadcast Maintenance Engineer, Dr. Marcial within 1 week. Hospital Course: Mr. Baptiste is a 19 year old man with no PMHx who presented to the ED with abdominal pain. Prior to arrival at [facility] the patient was told he had a renal abscess at [facility] but signed out AMA and came here. Workup included CT abdomen and pelvis which revealed a 6x6.5x6.9cm complex infiltrative heterogeneous hypovascular mass, multiloculated, in the superior pole of the left kidney without a clear well-defined peripherally enhancing wall with central fluid cavity to suggest an abscess. There was no clear evidence of pyelonephritis in the remaining portions of the left kidney. Right kidney appeared normal. IR placed a YOLIE drain which drained a small amount of serosangunous fluid. The patient was also started on vancomycin, however an acceptable vanc trough was unable to be reached despite increasing doses and the patient was switched to daptomycin. The patient had the drain in place for 1 week. In that time it was adjusted for repositioning once. The patient appeared to clinically improve and after 1 week it was fully removed. Once the drain was removed the patient stated he felt better however it was noted that the patient was having low grade fevers and the wbc continued to drift up. After 3 days the patient had a repeat abd/ pelvis CT with contrast which revealed a left psoas/ renal abcess in comparison to the previous CT. There was a persistent 3.7x3.3cm L renal upper pole abcess consisting of soft tissue thickening and multiple small multiloculated fluid foci. There was also a small abcess cavity which was not seen previously, within the adjacent left psoas muscle. IR and urology were both consulted at this point. IR felt it was not appropriate to place a drain at this time as the abcess is multiloculated and there was no clear fluid pocket large enough to place a drain. Urology felt that the only intervention they could provide would be a partial nephrectomy which they felt should only be used as a last resort given the patient's age and otherwise completely normal work up. ID agreed to broaden the coverage of antibiotics and added zosyn. We reached out to [facility] for transfer as it was felt the patient potentially needed a higher level of care than could be provided here. Referrals: Lima Finley MD [Staff Physician] - 1 Week Michelle Cabral MD [Staff Physician] - 1 Week Ga Marcial MD [Staff Physician] - 1 Week Disposition: AGAINST MEDICAL ADVICE - Home Medications Comprehensive Discharge Medication List: Ambulatory Orders NK [No Known Home Medication] 04/29/19 This patient is new to me today: Yes Date on this admission: 05/17/19 Emergency Visit: Yes ED Registration Date: 04/29/19 Care time: The patient presented to the Emergency Department on the above date and was hospitalized for further evaluation of their emergent condition. Critical Care patient: No - Discharge Referral Referred to [facility] Med P.C.: No ATTENDING PHYSICIAN STATEMENT I saw and evaluated the patient. I reviewed the resident's note and discussed the case with the resident. I agree with the resident's findings and plan as documented. SUBJECTIVE: OBJECTIVE: ASSESSMENT AND PLAN:
== END 2019-05-17 16:59 | disposition left against medical advice (07) | DRG 710 ==
LOC: JER 19:17 → MERGE 23:52 → JERBED 23:52 → J7W 04-30 02:36 → J5S 05-04 18:56
PROVIDERS: ADMIT Internal Medicine; ATTEND Internal Medicine
PROC: 0T9130Z Drainage of Left Kidney with Drainage Device, Percutaneous Approach (ICD-10-PCS; principal; 2019-04-30)
PROC: 0T25X0Z Change Drainage Device in Kidney, External Approach (ICD-10-PCS; 2019-05-04)
PROC: 0TP5X0Z Removal of Drainage Device from Kidney, External Approach (ICD-10-PCS; 2019-05-07)
PROC: 0T913ZX Drainage of Left Kidney, Percutaneous Approach, Diagnostic (ICD-10-PCS; 2019-05-11)
DX: A41.02 Sepsis due to Methicillin resistant Staphylococcus aureus (principal); N15.1 Renal and perinephric abscess; K68.12 Psoas muscle abscess; N12 Tubulo-interstitial nephritis, not specified as acute or chronic; R01.1 Cardiac murmur, unspecified; R10.9 Unspecified abdominal pain; D47.3 Essential (hemorrhagic) thrombocythemia; R50.9 Fever, unspecified; N28.89 Other specified disorders of kidney and ureter
CPT/HCPCS: 36415; 49405; 49406; 49423; 49424; 71045-TC-FY; 74177-TC; 76080-TC-FY; 76098-TC-FY; 76775-TC; 76998-TC; 80048; 80053; 81003; 82550; 82803; 83605; 83615; 84155; 84156; 84157; 84165; 85025; 85027; 85610; 85651; 85730; 86140; 86850; 86900; 86901; 87040; 87070; 87075; 87086; 87186; 87205; 87389; 87899; 88108; 88305-TC; 93005; 93010; 93306-TC; 99284-25; A4358; C1729; C1769; C1887; G0480; J0131; J0878; J1644; J7030; Q9967